=== PATIENT | female | born 1995 | race Hispanic/Latino ===

== ENCOUNTER 2020-11-26 06:26 | Emergency (ER) | payer SELFPAY ==
--- OUTSIDE RECORDS SUMMARY | 2020-11-26 06:29 | XMS REPORT | Continuity of Care Document ---
:1995 Author Organization [facility] t Address [address] [place] [address] Care Team Providers Name Role Phone Rosana Cheney Attending Clinician [phone] Problems This patient has no known problems. Allergies, Adverse Reactions, Alerts This patient has no known allergies or adverse reactions. Medications This patient has no known medications. Procedures This patient has no known procedures. 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
[2020-11-26 06:57] LABS: Absolute Lymphocytes (CBC) 1.8 K/uL (0.7-4.9); Basophils % 0.4 % (0-1.3); Lymphocytes % 12.2 % (15.3-44.8); RBC Red Blood Cell Count 4.01 M/uL (3.86-4.86)
[2020-11-26 07:05] LABS: Urine Blood TRACE (NEG); Urine Glucose NEGATIVE (NEG); Urine Protein 1+ (NEG)
[2020-11-26] MEDS ORDERED: NA CHLORIDE 0.9% 1,000 ML ONE (07:11)
[2020-11-26 07:12] LABS: ALT/SGPT 27 U/L (12-78); AST/SGOT 15 U/L (15-37); Albumin 3.2 g/dL (3.4-5.0); Alkaline Phosphatase 54 U/L (45-117); BUN Blood Urea Nitrogen 8 mg/dL (7-18); Bicarbonate 24 mmol/L (21-32); Bilirubin Direct < 0.1 mg/dL (0-0.2); Bilirubin Total 0.2 mg/dL (0.2-1.0); Glucose Level 72 mg/dL (74-106); Lipase 148 U/L (73-393); Potassium 3.6 mmol/L (3.5-5.1); Protein, Total 7.1 g/dL (6.4-8.2); Sodium Level 140 mmol/L (136-145)
--- NOTE | 2020-11-26 07:53 | RAD REPORT ---
EXAM DESCRIPTION: US - 1St Trimest Single 1St Fetus - 11/26/2020 7:32 am CLINICAL HISTORY: ABD CRAMPING, COMPARISON: No comparisons TECHNIQUE: Transabdominal pelvic sonography performed. FINDINGS: Single intrauterine gestation is identified. Body and limb movements are observed. No tonio s anatomic abnormality observed on limited assessment. Heart rate is 158 BPM. Amniotic fluid volume i s normal. Woodruff-rump length measurement corresponds to 11 weeks 4 days. No placental abnormality seen . Cervical canal appears closed. Both ovaries are identified without solid or cystic mass. No adnexal abnormality. No blood or fluid i n the cul de sac. IMPRESSION: Single 11 week 4 day IUP with heart rate 158 BPM. No amniotic fluid or placenta abnormality. Cervical canal appears closed. No adnexal abnormality.
--- NOTE | 2020-11-26 09:07 | ER ---
Nurse's Notes [facility] Name: Chantelle Wells Age: 25 yrs Sex: Female : 1995 Arrival Date: 11/26/2020 Time: 06:30 Bed 6 Private MD: Diagnosis: related conditions, unspecified; related conditions, unspecified, first trimester;Abdominal and pelvic pain Presentation: 11/26 06:37 Chief complaint: Patient states: i am 2 months and 2 weeks and i started to mg2 have sharp abdominal pain last night while on bed. denies n/v. Coronavirus screen: Client denies travel out of the [place] in the last 14 days. At this time, the client does not indicate any symptoms associated with coronavirus-19. Ebola Screen: No symptoms or risks identified at this time. Initial Sepsis Screen: Does the patient meet any 2 criteria? No. Patient's initial sepsis screen is negative. Does the patient have a suspected source of infection? No. Patient's initial sepsis screen is negative. Risk Assessment: Do you want to hurt yourself or someone else? Patient reports no desire to harm self or others. Onset of symptoms was November 26, 2020. 06:37 Method Of Arrival: Ambulatory mg2 06:37 Acuity: DEMETRIO 3 mg2 Triage Assessment: 06:39 General: Appears in no apparent distress. comfortable, Behavior is calm, cooperative. mg2 Pain: Complains of pain in abdomen Pain currently is 10 out of 10 on a pain scale. Quality of pain is described as sharp. EENT: No signs and/or symptoms were reported regarding the EENT system. Neuro: Level of Consciousness is awake, alert, obeys commands, Oriented to person, place, time, situation. Cardiovascular: Capillary refill < 3 seconds Patient's skin is warm and dry. Respiratory: Airway is patent Respiratory effort is even, unlabored, Respiratory pattern is regular, symmetrical. GI: Reports periumbilical pain. : No signs and/or symptoms were reported regarding the genitourinary system. Derm: Skin is intact, is healthy with good turgor, Skin is pink, warm \T\ dry. normal. Musculoskeletal: Circulation, motion, and sensation intact. Capillary refill < 3 seconds. 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 - Social history:: Smoking status: Patient denies any tobacco usage or history of. Patient/guardian denies using alcohol, street drugs, IV drugs. - Family history:: not pertinent. Screenin:41 Abuse screen: Denies threats or abuse. Denies injuries from another. Nutritional mg2 screening: No deficits noted. Tuberculosis screening: No symptoms or risk factors identified. Fall Risk IV access (20 points). Assessment: 06:41 General: triage note done. mg2 06:42 GI: Bowel sounds present X 4 quads. mg2 07:00 Reassessment: RECD REPORT FROM BRIDGETT SMITH. 25YO HF P/W ABD PAIN DURING . U/S bp PENDING. 07:00 GI: Abd is soft X 4 quads. bp 07:50 Reassessment: U/S COMPLETE. ALL CURRENT ORDERS COMPLETED. bp 08:54 Reassessment: Patient appears in no apparent distress at this time. Patient and/or bw family updated on plan of care and expected duration. Pain level reassessed. Patient is alert, oriented x 3, equal unlabored respirations, skin warm/dry/pink. 09:20 Reassessment: PT D/C HOME AMBULATORY, DX WITH FIRST TRIMESTER . bp Vital Signs: 06:37 BP 119 / 63; Pulse 79; Resp 18; Temp 98.3; Pulse Ox 100% on R/A; Weight 69.4 kg; Height mg2 5 ft. 0 in. (152.40 cm); Pain 10/10; 07:00 BP 99 / 64; Pulse 72; Resp 17; Pulse Ox 100% ; bp 08:54 BP 107 / 52; Pulse 73; Resp 16; Pulse Ox 100% on R/A; bw 06:37 Body Mass Index 29.88 (69.40 kg, 152.40 cm) mg2 ED Course: 06:30 Patient arrived in ED. bp1 06:36 Domingo Ventura, RN is Primary Nurse. mg2 06:39 Triage completed. mg2 06:41 Arm band placed on. mg2 06:42 Patient has correct armband on for positive identification. Pulse ox on. NIBP on. mg2 06:42 No provider procedures requiring assistance completed. Inserted saline lock: 20 gauge mg2 in right antecubital area, using aseptic technique. Blood collected. 06:47 Moustapha Rodriges MD is Attending Physician. mitch 06:55 Radiology exam delayed due to lab results not completed at this time. (HCG) aa4 test not completed at this time. 07:04 Primary Nurse role handed off by Dmoingo Ventura, SARAH bp 07:04 Srinivas Vanessa, SARAH is Primary Nurse. bp 07:30 Ultrasound completed. Patient tolerated well. aa4 08:03 Attending Physician role handed off by Moustapha Rodriges MD kdr 08:03 Jas Rivera MD is Attending Physician. kdr 08:57 Urine --Ancillary (enter results) Sent. bp 08:57 Urine Dipstick--Ancillary (enter results) Sent. bp 08:57 US Transvaginal Ob Sent. bp 08:57 Abo/rh Typing Sent. bp 08:57 Quantitative Hcg Sent. bp 08:58 Lipase Sent. bp 08:58 Hepatic Function Sent. bp 08:58 CBC with Diff Sent. bp 08:58 Basic Metabolic Panel Sent. bp 09:06 Fantasma Lawrence MD is Referral Physician. kdr 09:21 IV discontinued, intact, bleeding controlled, No redness/swelling at site. Pressure bp dressing applied. Administered Medications: 06:52 Drug: NS 0.9% 1000 ml Route: IV; Rate: 1 bolus; Site: right antecubital; mg2 09:24 Follow up: IV Status: Completed infusion; IV Intake: 1000ml bp Intake: 09:24 IV: 1000ml; Total: 1000ml. bp Outcome: 09:07 Discharge ordered by . kdr 09:21 Discharged to home ambulatory, with family. bp 09:21 Condition: stable 09:21 Discharge instructions given to patient, Instructed on discharge instructions, follow up and referral plans. medication usage, Demonstrated understanding of instructions, follow-up care, medications, Prescriptions given X 1. 09:25 Patient left the ED. bp Signatures: Moustapha Rodriges MD MD cha Rittger, Kevin, MD MD kdr Frazier, Amanda aa4 Srinivas Vanessa, SARAH RN bp Domingo Ventura RN RN mg2 Judy Duran [facility] Cam, Tri, RN RN bw
--- NOTE | 2020-11-26 09:08 | EDPHYS ---
Physician Documentation [facility] Name: Chantelle Wells Age: 25 yrs Sex: Female : 1995 Arrival Date: 11/26/2020 Time: 06:30 Bed 6 Private MD: ED Physician Jas Rivera HPI: 11/26 06:52 This 25 yrs old Female presents to ER via Ambulatory with complaints of mitch Abdominal Pain. 06:52 The patient presents with abdominal pain in the periumbilical area. abdominal mitch distention in the upper abdomen, in the lower abdomen. Onset: The symptoms/episode began/occurred just prior to arrival, this morning. The symptoms do not radiate. Associated signs and symptoms: none. The symptoms are described as crampy. Modifying factors: The symptoms are alleviated by remaining still, the symptoms are aggravated by jumping, movement, pressure. Severity of pain: At its worst the pain was moderate in the emergency department the pain has improved mildly. The patient has not experienced similar symptoms in the past. 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 - Social history:: Smoking status: Patient denies any tobacco usage or history of. Patient/guardian denies using alcohol, street drugs, IV drugs. - Family history:: not pertinent. ROS: 06:52 Constitutional: Negative for fever, chills, and weight loss, Eyes: Negative for injury, mitch pain, redness, and discharge, ENT: Negative for injury, pain, and discharge, Neck: Negative for injury, pain, and swelling, Cardiovascular: Negative for chest pain, palpitations, and edema, Respiratory: Negative for shortness of breath, cough, wheezing, and pleuritic chest pain, Back: Negative for injury and pain, : Negative for injury, bleeding, discharge, and swelling, MS/Extremity: Negative for injury and deformity, Skin: Negative for injury, rash, and discoloration, Neuro: Negative for headache, weakness, numbness, tingling, and seizure. 06:52 Abdomen/GI: Positive for abdominal pain, abdominal cramps. Exam: 06:52 Constitutional: This is a well developed, well nourished patient who is awake, alert, mitch and in no acute distress. Head/Face: Normocephalic, atraumatic. Eyes: Pupils equal round and reactive to light, extra-ocular motions intact. Lids and lashes normal. Conjunctiva and sclera are non-icteric and not injected. Cornea within normal limits. Periorbital areas with no swelling, redness, or edema. ENT: Nares patent. No nasal discharge, no septal abnormalities noted. Tympanic membranes are normal and external auditory canals are clear. Oropharynx with no redness, swelling, or masses, exudates, or evidence of obstruction, uvula midline. Mucous membranes moist. Neck: Trachea midline, no thyromegaly or masses palpated, and no cervical lymphadenopathy. Supple, full range of motion without nuchal rigidity, or vertebral point tenderness. No Meningismus. Chest/axilla: Normal chest wall appearance and motion. Nontender with no deformity. No lesions are appreciated. Cardiovascular: Regular rate and rhythm with a normal S1 and S2. No gallops, murmurs, or rubs. Normal PMI, no JVD. No pulse deficits. Respiratory: Lungs have equal breath sounds bilaterally, clear to auscultation and percussion. No rales, rhonchi or wheezes noted. No increased work of breathing, no retractions or nasal flaring. Back: No spinal tenderness. No costovertebral tenderness. Full range of motion. Female : Normal external genitalia. Skin: Warm, dry with normal turgor. Normal color with no rashes, no lesions, and no evidence of cellulitis. MS/ Extremity: Pulses equal, no cyanosis. Neurovascular intact. Full, normal range of motion. Neuro: Awake and alert, GCS 15, oriented to person, place, time, and situation. Cranial nerves II-XII grossly intact. Motor strength 5/5 in all extremities. Sensory grossly intact. Cerebellar exam normal. Normal gait. Psych: Awake, alert, with orientation to person, place and time. Behavior, mood, and affect are within normal limits. 06:52 Abdomen/GI: Inspection: abdomen appears normal, Bowel sounds: normal, Palpation: mild abdominal tenderness, in the umbilical area, right lower quadrant and left lower quadrant, Liver: no appreciated palpable abnormalities, Hernia: not appreciated. Vital Signs: 06:37 BP 119 / 63; Pulse 79; Resp 18; Temp 98.3; Pulse Ox 100% on R/A; Weight 69.4 kg; Height mg2 5 ft. 0 in. (152.40 cm); Pain 10/10; 07:00 BP 99 / 64; Pulse 72; Resp 17; Pulse Ox 100% ; bp 08:54 BP 107 / 52; Pulse 73; Resp 16; Pulse Ox 100% on R/A; bw 06:37 Body Mass Index 29.88 (69.40 kg, 152.40 cm) mg2 MDM: 06:47 Patient medically screened. mitch 06:54 Differential diagnosis: Cholelithiasis, gastritis, Irritable bowel syndrome, mitch pancreatitis, Peptic Ulcer Disease, urinary tract infection. Data reviewed: vital signs, nurses notes, lab test result(s), radiologic studies, ultrasound. 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 Counseling: I had a detailed discussion with the patient and/or guardian regarding: the historical points, exam findings, and any diagnostic results supporting the discharge/admit diagnosis, lab results, radiology results, the need for outpatient follow up, for definitive care, an OB/Gyne specialist. 11/26 06:36 Order name: Basic Metabolic Panel mg2 11/26 06:36 Order name: CBC with Diff mg2 11/26 06:36 Order name: Hepatic Function mg2 11/26 06:36 Order name: Lipase mg2 11/26 06:52 Order name: Quantitative Hcg mitch 11/26 06:52 Order name: Abo/rh Typing [facility] 11/26 06:52 Order name: Urine Dipstick--Ancillary (enter results) eb 11/26 06:52 Order name: Urine --Ancillary (enter results) eb 11/26 06:58 Order name: CBC with Automated Diff; Complete Time: 07:24 EDMS 11/26 07:06 Order name: Urine --Ancillary; Complete Time: 07:24 EDMS 11/26 07:06 Order name: Urine Dipstick-Ancillary; Complete Time: 07:24 EDMS 11/26 07:12 Order name: Basic Metabolic Panel; Complete Time: 07:24 EDMS 11/26 07:12 Order name: Liver (Hepatic) Function; Complete Time: 07:24 EDMS 11/26 07:12 Order name: Lipase; Complete Time: 07:24 EDMS 11/26 06:36 Order name: IV Saline Lock; Complete Time: 06:42 mg2 11/26 06:36 Order name: Labs collected and sent; Complete Time: 06:43 mg2 11/26 06:36 Order name: Urine Dipstick-Ancillary (obtain specimen); Complete Time: 06:42 mg2 11/26 06:36 Order name: Urine Test (obtain specimen); Complete Time: 06:42 mg2 11/26 06:52 Order name: NPO; Complete Time: 06:53 mitch 11/26 06:52 Order name: US Transvaginal Ob mitch 11/26 07:53 Order name: US; Complete Time: 08:04 EDMS 11/26 07:54 Order name: ABO/RH typing; Complete Time: 08:04 EDMS 11/26 07:55 Order name: HCG, Quantitative; Complete Time: 08:04 EDMS Administered Medications: 06:52 Drug: NS 0.9% 1000 ml Route: IV; Rate: 1 bolus; Site: right antecubital; mg2 09:24 Follow up: IV Status: Completed infusion; IV Intake: 1000ml bp Disposition: 11/26/20 09:07 Discharged to Home. Impression: related conditions, unspecified, related conditions, unspecified, first trimester, Abdominal and pelvic pain. - Condition is Stable. - Discharge Instructions: First Trimester of , [id number], First Trimester of , Pelvic Rest. - Prescriptions for Vitamin 27- 0.8 mg Oral Tablet - take 1 tablet by ORAL route once daily; 30 tablet. - Medication Reconciliation Form, Thank You Letter, Antibiotic Education, Prescription Opioid Use, Work release form form. - Follow up: Private Physician; When: 2 - 3 days; Reason: Recheck today's complaints, Continuance of care, Re-evaluation by your physician. Follow up: Fantasma Lawrence; When: 2 - 3 days; Reason: Recheck today's complaints, Re-evaluation by your physician. - Problem is new. - Symptoms have improved. Signatures: Dispatcher [employer] [facility] Moustapha Rodriges MD MD cha Rittger, Kevin, MD MD kdr Peltier, Brian, RN RN bp Domingo Ventura RN RN mg2 Corrections: (The following items were deleted from the chart) 09:25 09:07 11/26/2020 09:07 Discharged to Home. Impression: related conditions, bp unspecified; related conditions, unspecified, first trimester; Abdominal and pelvic pain. Condition is Stable. Discharge Instructions: First Trimester of , [id number], First Trimester of , Pelvic Rest. Prescriptions for Vitamin 27-0.8 mg Oral Tablet - take 1 tablet by ORAL route once daily; 30 tablet. and Forms are Medication Reconciliation Form, Thank You Letter, Antibiotic Education, Prescription Opioid Use. Follow up: Private Physician; When: 2 - 3 days; Reason: Recheck today's complaints, Continuance of care, Re-evaluation by your physician. Follow up: Fantasma Lawrence; When: 2 - 3 days; Reason: Recheck today's complaints, Re-evaluation by your physician. Problem is new. Symptoms have improved. kdr
[2020-11-26 19:12] VITALS: TEMP 98.3; O2SAT 100
[2020-11-26 19:15] VITALS: BP 107/52
== END 2020-11-26 09:25 | disposition home or self-care (01) ==
LOC: ER 06:26
DX: O26.891 Other specified pregnancy related conditions, first trimester (principal); Z3A.11 11 weeks gestation of pregnancy
CPT/HCPCS: 36415; 76801; 80048; 80076; 81003; 81025; 83690; 84702; 85025; 86900; 86901; 96360; 96361; 99284; J7030

== ENCOUNTER 2020-12-23 22:03 | Emergency (ER) | payer SELFPAY ==
--- OUTSIDE RECORDS SUMMARY | 2020-12-23 22:05 | XMS REPORT | Continuity of Care Document ---
:1995 Author Organization [facility] t Address [address] [place] [address] Care Team Providers Name Role Phone Rosana Cheney Attending Clinician [phone] Problems This patient has no known problems. Allergies, Adverse Reactions, Alerts This patient has no known allergies or adverse reactions. Medications This patient has no known medications. Procedures This patient has no known procedures. Encounters Start End Encounter Admission Attending Care Care Encounter Source Date/Time Date/Time Type Type Clinicians Facility Department ID 2020-12-13 2020-12-13 Routine [facility] [id number] 08:40:34 09:52:59 Rosana Berger IT TECHNICAL SUPPORT SPECIALIST [id number] Visit REGIONAL [id number] MATERNAL [id number] & CHILD 107 [facility] 2020-11-22 2020-11-22 Telephone [facility] [id number] 00:00:00 00:00:00 Rosana Berger IT TECHNICAL SUPPORT SPECIALIST [id number] REGIONAL [id number] MATERNAL [id number] & CHILD 107 [facility] Results This patient has no known results.
--- NOTE | 2020-12-24 00:14 | ER ---
Nurse's Notes [facility] Name: Chantelle Wells Age: 25 yrs Sex: Female : 1995 Arrival Date: 12/23/2020 Time: 22:04 Bed Waiting Private MD: Diagnosis: Presentation: 12/23 22:15 Chief complaint: Patient states: she had sudden onset of abdominal and back pain which bb is constant with no radiation denies vomiting or diarrhea. Coronavirus screen: At this time, the client does not indicate any symptoms associated with coronavirus-19. Ebola Screen: No symptoms or risks identified at this time. Initial Sepsis Screen: Does the patient meet any 2 criteria? No. Patient's initial sepsis screen is negative. Does the patient have a suspected source of infection? No. Patient's initial sepsis screen is negative. Risk Assessment: Do you want to hurt yourself or someone else? Patient reports no desire to harm self or others. Onset of symptoms was December 23, 2020. 22:15 Method Of Arrival: Ambulatory bb 22:15 Acuity: DEMETRIO 3 bb 12/24 00:12 Note registration staff reported pt left the ED. bb Triage Assessment: 12/23 22:18 General: Appears in no apparent distress. Behavior is calm, cooperative. Pain: bb Complains of pain in back and abdomen Pain does not radiate. Pain currently is 10 out of 10 on a pain scale. Pain began suddenly. GI: Abdomen is non-distended, Reports upper abdominal pain. Derm: Skin is pink, warm \T\ dry. Musculoskeletal: Circulation, motion, and sensation intact. 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 - Social history:: Smoking status: Patient denies any tobacco usage or history of. Vital Signs: 22:15 BP 116 / 59; Pulse 82; Resp 16 S; Temp 98.4(O); Pulse Ox 100% on R/A; Weight 68.04 kg bb (R); Height 5 ft. 0 in. (152.40 cm) (R); Pain 10/10; 22:15 Body Mass Index 29.29 (68.04 kg, 152.40 cm) bb ED Course: 22:04 Patient arrived in ED. cl3 22:17 Triage completed. bb 22:18 Arm band placed on Patient placed in waiting room, Patient notified of wait time. bb 12/24 00:12 Patient's name was called from ER lobby. No response. Unable to locate patient. Will bb disposition as left without being seen by a provider. Administered Medications: No medications were administered Outcome: 00:13 Patient left the ED. bb Signatures: Maribel Jaramillo RN RN bb [employer] cl3
[2020-12-24 19:21] VITALS: BP 116/59; TEMP 98.4; O2SAT 100
== END 2020-12-24 00:13 | disposition left against medical advice (07) ==
LOC: ER 22:03
DX: Z53.21 Procedure and treatment not carried out due to patient leaving prior to being seen by health care provider (principal)
CPT/HCPCS: 99281

== ENCOUNTER 2022-01-12 21:02 | Emergency (ER) | payer SELFPAY ==
--- OUTSIDE RECORDS SUMMARY | 2022-01-12 21:09 | XMS REPORT | Continuity of Care Document ---
:1995 Author Organization [facility] t Address [address] [place] [address] Care Team Providers Name Role Phone Rosana Cheney Primary Care Physician ARTEAGA Attending Clinician Unavailable Arteaga DO Attending Clinician Doctor Unassigned, Name Attending Clinician Unavailable Celine Cheney Attending Clinician Celine PAK Attending Clinician Unavailable Gibran Romo Attending Clinician Unavailable Viki Broderick MD Attending Clinician Mike BLEACHING SUPERVISOR, N Attending Clinician Ultrasound Attending Clinician Unavailable Lui ESQUIVEL M Attending Clinician 1, Us Room Attending Clinician Unavailable Torsten ESQUIVEL R Attending Clinician Visit, Nurse Attending Clinician Unavailable Lab Attending Clinician Unavailable VIKI BRODERICK Admitting Clinician Unavailable Gibran Romo Admitting Clinician Unavailable Viki Broderick MD Admitting Clinician Payers Payer Name Policy Type Policy Number Effective Date Expiration Date Marcelo [facility] [id number] 2020 00:00:00 [employer] Advance Directives Directive Decision Effective Termination Comments Source Date Date Healthcare Agents on N/A Univ ersity FileNameRelationshipHealthcare [facility] Agent Medical RelationshipCommunicationMaria Branch HerFlagstaff Medical CentertherHealth Care [phone] (Mobile) Problems Condition Condition Condition Status Onset Resolution Last Treating Co mments Source Name Details Category Date Date Treatment Clinician Date Other Other Disease Active Univers general general 7- [place] of counseling [place] and advice and advice 00 Me dical for for Branch contracept contracept akhil akhil management management Disease Active U nivers care and care and 7 ity of examinatio examinatio [place] n of n of 00 Medical lactating lactating Bran ch mother mother Vaginal Vaginal Disease Active Univers bleeding bleeding 6-11 ity of in in 00:00: [place] 00 [facility] Branch Obesity Obesity Disease Active Univers (BMI (BMI 6-11 ity of 30-39.9) 30-39.9) 00:00: [place] 00 [facility] 25 weeks 25 weeks Disease Active Unive rs gestation gestation 6-11 ity of of of 00:00: [place] 00 [facility] Branch Disease Active Univers labor in labor in 6-11 ity of second second 00:00: [place] trimester trimester 00 [facility] without without Branch delivery delivery Pain of Pain of Disease Active Univers round round 6-02 ity of ligament ligament 00:00: [place] during during 00 Medical Bran ch Headache Headache Disease Active [place]ive rs [place] 2- [place] Chlamydia Chlamydia Disease Active Overview: Univers infection infection - Formattin i ty of affecting affecting 00:00: [place] of this [place] 00 note [facility] might be Branch different from the original. WENDIE-neg Gonorrhea Gonorrhea Disease Active Overview: Univers in in - Formattin ity of 00:00: [place] of this [place] 00 note Medical might be Branch different from the original. WENDIE -neg Susceptibl Susceptibl Disease Active Overview : Univers e to e to 10-13 Formattin ity of varicella varicella 00:00: [place] of [place] (non-immun (non-immun 00 note Me dical e), e), might be Branch currently currently different from the original. Address pp Rubella Rubella Disease Active Overview: Univ ers non-immune non-immune 20 Formattin ity of status, status, 00:00: g of this [place] antepartum antepartum 00 note Me dical might be Branch different from the original. Address pp Supervisio Supervisio Disease Active U emeli n of high n of high -19 ity of risk risk 00:00: [place] , , 00 Me dical antepartum antepartum Br anch Over Over Disease Active Univers weight weight 10-12 ity of 00:00: [place] 00 Medical Branch Nexplanon Nexplanon Disease Active Overview: Univers removal removal 05-14 Formattin ity o f 00:00: g of this [place] 00 note Medical might be Branch different from the original. Placed 04/2017, removed 10/2017 Non morbid Non morbid Disease Active U emeli obesity obesity 04-24 ity of due to due to 00:00: [place] excess excess 00 Medical calories calories Branch Other Other Disease Active Univers general general 8 ity of counseling counseling 00:00[place] and advice and advice 00 Me dical for for Branch contracept contracept akhil akhil management management Lump of Lump of Disease Active Univers right right 5-03 ity of breast breast 00:00: [place] 00 Medical Branch Contracept Contracept Disease Active U emeli akhil akhil 1-11 ity of management management 00:00: [place] 00 [place] Allergies, Adverse Reactions, Alerts Allergy Allergy Status Severity Reaction(s) Onset Inactive Treating Comm ents Source Name Type Date Date Clinician No Known DA Active U [facility] 6[facility]12 [facility] [place] No Known DA Active U [facility] 6[facility]12 [facility] [place] NO KNOWN Drug Active Univers ALLERGIE Class ity of S [facility] Social History Social Habit Start Date Stop Date Quantity Comments Source ASSERTION 2020-09-20 [facility] 00:00:00 Medical Branch Exposure to 2022-01-02 2022-01-12 Not sure [facility] SARS-CoV-2 (event) 00:00:00 [facility] Alcohol intake 2022-01-12 2022-01-12 0 /d [facility] 00:00:00 00:00:00 [facility] Tobacco use and 2021-04-18 2021-04-18 Never used [facility] exposure 00:00:00 00:00:00 [facility] Sex Ass[birth year] At [birth year] [facility] 00:00:00 00:00:00 [facility] Smoking Status Start Date Stop Date Source Never smoker [facility] [place] [facility] Medications Ordered Filled Start Stop Current Ordering Indication Dosage Frequency Signature Comments Components Source Medication Medication Date Date Medication? Clinician (SIG) Name Name santosho No 10mg 10 mg, Uni vers ne 01-12 Oral, ity of (DECADRON 16:30: 15:25 ONCE, 1 [place] PHOSPHATE) 00 :00 dose, On Medic al injection Macie Covel 10 mg 01/12/22 at 1130, Routine indomethaci 2020- No 50mg 50 mg, Uni vers n (INDOCIN) 03-05-12 Oral, ity of capsule 50 03:30: 02:27 ONCE, 1 [place] mg 00 :00 dose, Fri Medical 03/04/21 at Branch 2230, Routine D5W 0.45% Yes 1000mL at 100 Univ ers NaCl 6-12 mL/hr, ity of (1/2NS) IV 01:45: 1,000 mL, [place] infusion 00 IV Medical 1,000 mL Infusion, Branch CONTINUOUS , Starting 03/04/21 at 2045, Until Discontinu ed, Routine penicillin 2020- No 510 5 Million U nivers g potassium 03-05-12 Units, IV it y of 5 Million 01:45: 02:00 Piggyback, [place] Units in 00 :00 ONCE, 1 Medical NaCl 0.9% dose, Fri Branc h (NS) 100 mL 03/04/21 at MINI-BAG 2044, 100 mL
Reas on for Anti-Infec tive: Empiric Non-Surgic al Prophylaxi s
Durat ion of therapy: 72 hours terbutaline 2020- No .25mg 0.25 mg, Univers (BRETHINE) 03-05 Subcutaneo it y of injection 01:30: 00:41 [place], ONCE, [place] 0.25 mg 00 :00 1 dose, Medical Fri Branch 03/04/21 at 2030, Routine magnesium 2020- No 2g/h 2 g/hr (50 U nivers sulfate in 03-05 mL/hr), at it y of 0.9 %NaCl 01:30: 13:29 50 mL/hr, [place] 10 gram/250 00 :00 IV Medical mL (40 Infusion, Branch mg/mL) IV CONTINUOUS SOLUTION , Starting 03/04/21 at 2030, Until 03/05/21 at 0829, V[place] betamethaso 2020- No 12mg 12 mg, Uni vers ne acet,sod 03-05 Intramuscu i ty of phos 01:30: 00:43 lar, ONCE, [place] (CELESTONE 00 :00 1 dose, Medica l SOLUSPAN) 6 Fri Branch mg/mL 03/04/21 at injection 2030, 12 mg Routine ferrous Yes [id number] 325mg Take 1 Un marin sulfate 325 6-03 tablet by ity of mg (65 mg 00:00: mouth 2 [place] iron) 00 (two) Medical tablet times Branch daily. ascorbic Yes [id number] 500mg Take 1 U nivers acid, 6-03 tablet by ity of vitamin C, 00:00: mouth [place] 500 mg 00 (three) Medical tablet times Branch daily. ferrous Yes [id number] 325mg Take 1 Un marin sulfate 325 6-03 tablet by ity of mg (65 mg 00:00: mouth 2 [place] iron) 00 (two) Medical tablet times Branch daily. ascorbic Yes [id number] 500mg Take 1 U nivers acid, 6-03 tablet by ity of vitamin C, 00:00: mouth [place] 500 mg 00 (three) Medical tablet times Branch daily. ferrous Yes [id number] 325mg Take 1 Un marin sulfate 325 6-03 tablet by ity of mg (65 mg 00:00: mouth 2 [place] iron) 00 (two) Medical tablet times Branch daily. ascorbic Yes [id number] 500mg Take 1 U nivers acid, 6-03 tablet by ity of vitamin C, 00:00: mouth [place] 500 mg 00 (three) Medical tablet times Branch daily. ferrous Yes [id number] 325mg Take 1 Un marin sulfate 325 6-03 tablet by ity of mg (65 mg 00:00: mouth 2 [place] iron) 00 (two) Medical tablet times Branch daily. ascorbic Yes [id number] 500mg Take 1 U nivers acid, 6-03 tablet by ity of vitamin C, 00:00: mouth [place] 500 mg 00 (three) Medical tablet times Branch daily. ferrous Yes [id number] 325mg Take 1 Un marin sulfate 325 6-03 tablet by ity of mg (65 mg 00:00: mouth 2 [place] iron) 00 (two) Medical tablet times Branch daily. ascorbic Yes [id number] 500mg Take 1 U nivers acid, 6-03 tablet by ity of vitamin C, 00:00: mouth [place] 500 mg 00 (three) Medical tablet times Branch daily. ferrous Yes [id number] 325mg Take 1 Un marin sulfate 325 6-03 tablet by ity of mg (65 mg 00:00: mouth 2 [place] iron) 00 (two) Medical tablet times Branch daily. ascorbic Yes [id number] 500mg Take 1 U nivers acid, 6-03 tablet by ity of vitamin C, 00:00: mouth 3 [place] 500 mg 00 (three) Medical tablet times Branch daily. ferrous Yes [id number] 325mg Take 1 Un marin sulfate 325 6-03 tablet by ity of mg (65 mg 00:00: mouth 2 [place] iron) 00 (two) Medical tablet times Branch daily. ascorbic Yes [id number] 500mg Take 1 U nivers acid, 6-03 tablet by ity of vitamin C, 00:00: mouth [place] 500 mg 00 (three) Medical tablet times Branch daily. ferrous Yes [id number] 325mg Take 1 Un marin sulfate 325 6-03 tablet by ity of mg (65 mg 00:00: mouth 2 [place] iron) 00 (two) Medical tablet times Branch daily. ascorbic Yes [id number] 500mg Take 1 U nivers acid, 6-03 tablet by ity of vitamin C, 00:00: mouth 3 [place] 500 mg 00 (three) Medical tablet times Branch daily. ferrous Yes [id number] 325mg Take 1 Un marin sulfate 325 6-03 tablet by ity of mg (65 mg 00:00: mouth 2 [place] iron) 00 (two) Medical tablet times Branch daily. ascorbic Yes [id number] 500mg Take 1 U nivers acid, 6-03 tablet by ity of vitamin C, 00:00: mouth 3 [place] 500 mg 00 (three) Medical tablet times Branch daily. ferrous Yes [id number] 325mg Take 1 Un marin sulfate 325 6-03 tablet by ity of mg (65 mg 00:00: mouth 2 [place] iron) 00 (two) Medical tablet times Branch daily. ascorbic Yes [id number] 500mg Take 1 U nivers acid, 6-03 tablet by ity of vitamin C, 00:00: mouth 3 [place] 500 mg 00 (three) Medical tablet times Branch daily. ferrous Yes [id number] 325mg Take 1 Un marin sulfate 325 6-03 tablet by ity of mg (65 mg 00:00: mouth 2 [place] iron) 00 (two) Medical tablet times Branch daily. ascorbic Yes [id number] 500mg Take 1 U nivers acid, 6-03 tablet by ity of vitamin C, 00:00: mouth 3 [place] 500 mg 00 (three) Medical tablet times Branch daily. ferrous Yes [id number] 325mg Take 1 Un marin sulfate 325 6-03 tablet by ity of mg (65 mg 00:00: mouth 2 [place] iron) 00 (two) Medical tablet times Branch daily. ascorbic Yes [id number] 500mg Take 1 U nivers acid, 6-03 tablet by ity of vitamin C, 00:00: mouth 3 [place] 500 mg 00 (three) Medical tablet times Branch daily. ferrous Yes [id number] 325mg Take 1 Un marin sulfate 325 6-03 tablet by ity of mg (65 mg 00:00: mouth 2 [place] iron) 00 (two) Medical tablet times Branch daily. ascorbic 2020-0 Yes [id number] 500mg Take 1 U nivers acid, 6-03 tablet by ity of vitamin C, 00:00: mouth 3 [place] 500 mg 00 (three) Medical tablet times Branch daily. ferrous 2020-0 Yes [id number] 325mg Take 1 Un marin sulfate 325 6-03 tablet by ity of mg (65 mg 00:00: mouth 2 [place] iron) 00 (two) Medical tablet times Branch daily. ascorbic 2020-0 Yes [id number] 500mg Take 1 U nivers acid, 6-03 tablet by ity of vitamin C, 00:00: mouth 3 [place] 500 mg 00 (three) Medical tablet times Branch daily. ferrous 2020- Yes [id number] 325mg Take 1 Un marin sulfate 325 6-03 tablet by ity of mg (65 mg 00:00: mouth 2 [place] iron) 00 (two) Medical tablet times Branch daily. ascorbic Yes [id number] 500mg Take 1 U nivers acid, 6-03 tablet by ity of vitamin C, 00:00: mouth 3 [place] 500 mg 00 (three) Medical tablet times Branch daily. PNV 2020-0 Yes [id number] 1{tbl} Take 1 Unive rs no.153-FA-o 6-02 tablet by ity of m3-dha-epa- 00:00: mouth [place] fish 00 daily. Medical ( Branch GUMMIES) 400 mcg-35 mg- 25 mg-5 mg Chew PNV 2020-0 Yes [id number] 1{tbl} Take 1 Unive rs no.153-FA-o 6-02 tablet by ity of m3-dha-epa- 00:00: mouth [place] fish 00 daily. Medical ( Branch GUMMIES) 400 mcg-35 mg- 25 mg-5 mg Chew PNV 2020-0 Yes [id number] 1{tbl} Take 1 Unive rs no.153-FA-o 6-02 tablet by ity of m3-dha-epa- 00:00: mouth [place] fish 00 daily. Medical ( Branch GUMMIES) 400 mcg-35 mg- 25 mg-5 mg Chew PNV 2020-0 Yes [id number] 1{tbl} Take 1 Unive rs no.153-FA-o 6-02 tablet by ity of m3-dha-epa- 00:00: mouth [place] fish 00 daily. Medical ( Branch GUMMIES) 400 mcg-35 mg- 25 mg-5 mg Chew PNV 2021-0 Yes [id number] 1{tbl} Take 1 Unive rs no.153-FA-o 6-02 tablet by ity of m3-dha-epa- 00:00: mouth [place] fish 00 daily. Medical ( Branch GUMMIES) 400 mcg-35 mg- 25 mg-5 mg Chew PNV 2021-0 Yes [id number] 1{tbl} Take 1 Unive rs no.153-FA-o 6-02 tablet by ity of m3-dha-epa- 00:00: mouth [place] fish 00 daily. Medical ( Branch GUMMIES) 400 mcg-35 mg- 25 mg-5 mg Chew PNV 2021-0 Yes [id number] 1{tbl} Take 1 Unive rs no.153-FA-o 6-02 tablet by ity of m3-dha-epa- 00:00: mouth [place] fish 00 daily. Medical ( Branch GUMMIES) 400 mcg-35 mg- 25 mg-5 mg Chew PNV 2021-0 Yes [id number] 1{tbl} Take 1 Unive rs no.153-FA-o 6-02 tablet by ity of m3-dha-epa- 00:00: mouth [place] fish 00 daily. Medical ( Branch GUMMIES) 400 mcg-35 mg- 25 mg-5 mg Chew PNV 2021-0 Yes [id number] 1{tbl} Take 1 Unive rs no.153-FA-o 6-02 tablet by ity of m3-dha-epa- 00:00: mouth [place] fish 00 daily. Medical ( Branch GUMMIES) 400 mcg-35 mg- 25 mg-5 mg Chew PNV 2021-0 Yes [id number] 1{tbl} Take 1 Unive rs no.153-FA-o 6-02 tablet by ity of m3-dha-epa- 00:00: mouth [place] fish 00 daily. Medical ( Branch GUMMIES) 400 mcg-35 mg- 25 mg-5 mg Chew PNV 2021-0 Yes [id number] 1{tbl} Take 1 Unive rs no.153-FA-o 6-02 tablet by ity of m3-dha-epa- 00:00: mouth [place] fish 00 daily. Medical ( Branch GUMMIES) 400 mcg-35 mg- 25 mg-5 mg Chew PNV 2021-0 Yes [id number] 1{tbl} Take 1 Unive rs no.153-FA-o 6-02 tablet by ity of m3-dha-epa- 00:00: mouth [place] fish 00 daily. Medical ( Branch GUMMIES) 400 mcg-35 mg- 25 mg-5 mg Chew PNV 2021-0 Yes [id number] 1{tbl} Take 1 Unive rs no.153-FA-o 6-02 tablet by ity of m3-dha-epa- 00:00: mouth [place] fish 00 daily. Medical ( Branch GUMMIES) 400 mcg-35 mg- 25 mg-5 mg Chew PNV 2021-0 Yes [id number] 1{tbl} Take 1 Unive rs no.153-FA-o 6-02 tablet by ity of m3-dha-epa- 00:00: mouth [place] fish 00 daily. Medical ( Branch GUMMIES) 400 mcg-35 mg- 25 mg-5 mg Chew PNV 2021-0 Yes [id number] 1{tbl} Take 1 Unive rs no.153-FA-o 6-02 tablet by ity of m3-dha-epa- 00:00: mouth [place] fish 00 daily. Medical ( Branch GUMMIES) 400 mcg-35 mg- 25 mg-5 mg Chew PNV 2021-0 Yes [id number] 1{tbl} Take 1 Unive rs no.153-FA-o 6-02 tablet by ity of m3-dha-epa- 00:00: mouth [place] fish 00 daily. Medical ( Branch GUMMIES) 400 mcg-35 mg- 25 mg-5 mg Chew PNV 2021-0 Yes [id number] 1{tbl} Take 1 Unive rs no.153-FA-o 6-02 tablet by ity of m3-dha-epa- 00:00: mouth [place] fish 00 daily. Medical ( Branch GUMMIES) 400 mcg-35 mg- 25 mg-5 mg Chew 2020-0 Yes [id number] 1{tbl} Take 1 U nivers multivitami 3-22 tablet by ity of n ( 00:00: mouth [place] VITAMIN) 00 daily. Medical tablet Branch Yes [id number] 1{tbl} Take 1 U nivers multivitami 3-22 tablet by ity of n ( 00:00: mouth [place] VITAMIN) 00 daily. Medical tablet Branch Yes [id number] 1{tbl} Take 1 U nivers multivitami 3-22 tablet by ity of n ( 00:00: mouth [place] VITAMIN) 00 daily. Medical tablet Branch Yes [id number] 1{tbl} Take 1 U nivers multivitami 3-22 tablet by ity of n ( 00:00: mouth [place] VITAMIN) 00 daily. Medical tablet Branch Yes [id number] 1{tbl} Take 1 U nivers multivitami 3-22 tablet by ity of n ( 00:00: mouth [place] VITAMIN) 00 daily. Medical tablet Branch Yes [id number] 1{tbl} Take 1 U nivers multivitami 3-22 tablet by ity of n ( 00:00: mouth [place] VITAMIN) 00 daily. Medical tablet Branch Yes [id number] 1{tbl} Take 1 U nivers multivitami 3-22 tablet by ity of n ( 00:00: mouth [place] VITAMIN) 00 daily. Medical tablet Branch Yes [id number] 1{tbl} Take 1 U nivers multivitami 3-22 tablet by ity of n ( 00:00: mouth [place] VITAMIN) 00 daily. Medical tablet Branch Yes [id number] 1{tbl} Take 1 U nivers multivitami 3-22 tablet by ity of n ( 00:00: mouth [place] VITAMIN) 00 daily. Medical tablet Branch Yes [id number] 1{tbl} Take 1 U nivers multivitami 3-22 tablet by ity of n ( 00:00: mouth [place] VITAMIN) 00 daily. Medical tablet Branch Yes [id number] 1{tbl} Take 1 U nivers multivitami 3-22 tablet by ity of n ( 00:00: mouth [place] VITAMIN) 00 daily. Medical tablet Branch Yes [id number] 1{tbl} Take 1 U nivers multivitami 3-22 tablet by ity of n ( 00:00: mouth [place] VITAMIN) 00 daily. Medical tablet Branch Yes [id number] 1{tbl} Take 1 U nivers multivitami 3-22 tablet by ity of n ( 00:00: mouth [place] VITAMIN) 00 daily. Medical tablet Branch Yes [id number] 1{tbl} Take 1 U nivers multivitami 3-22 tablet by ity of n ( 00:00: mouth [place] VITAMIN) 00 daily. Medical tablet Branch Yes [id number] 1{tbl} Take 1 U nivers multivitami 3-22 tablet by ity of n ( 00:00: mouth [place] VITAMIN) 00 daily. Medical tablet Branch Yes [id number] 1{tbl} Take 1 U nivers multivitami 3-22 tablet by ity of n ( 00:00: mouth [place] VITAMIN) 00 daily. Medical tablet Branch Yes [id number] 1{tbl} Take 1 U nivers multivitami 3-22 tablet by ity of n ( 00:00: mouth [place] VITAMIN) 00 daily. Medical tablet Branch Yes [id number] 1{tbl} Take 1 U nivers multivitami 3-22 tablet by ity of n ( 00:00: mouth [place] VITAMIN) 00 daily. Medical tablet Branch Yes [id number] 1{tbl} Take 1 U nivers multivitami 3-22 tablet by ity of n ( 00:00: mouth [place] VITAMIN) 00 daily. Medical tablet Branch Yes [id number] 1{tbl} Take 1 U nivers multivitami 3-22 tablet by ity of n ( 00:00: mouth [place] VITAMIN) 00 daily. Medical tablet Branch Yes [id number] 1{tbl} Take 1 U nivers multivitami 3-22 tablet by ity of n ( 00:00: mouth [place] VITAMIN) 00 daily. Medical tablet Branch Yes [id number] 1{tbl} Take 1 U nivers multivitami 3-22 tablet by ity of n ( 00:00: mouth [place] VITAMIN) 00 daily. Medical tablet Branch Yes [id number] 1{tbl} Take 1 U nivers multivitami 3-22 tablet by ity of n ( 00:00: mouth [place] VITAMIN) 00 daily. Medical tablet Branch Yes [id number] 1{tbl} Take 1 U nivers multivitami 3-22 tablet by ity of n ( 00:00: mouth [place] VITAMIN) 00 daily. Medical tablet Branch Yes [id number] 1{tbl} Take 1 U nivers multivitami 3-22 tablet by ity of n ( 00:00: mouth [place] VITAMIN) 00 daily. Medical tablet Branch Yes [id number] 1{tbl} Take 1 U nivers multivitami 3-22 tablet by ity of n ( 00:00: mouth [place] VITAMIN) 00 daily. Medical tablet Branch Yes [id number] 1{tbl} Take 1 U nivers multivitami 3-22 tablet by ity of n ( 00:00: mouth [place] VITAMIN) 00 daily. Medical tablet Branch terconazole 2020- No [id number] 80mg Insert 1 Univers 80 mg 3- 03-05 Suppositor ity of vaginal 00:00: 05:59 y into [place] suppository 00 :00 vagina at [facility] for 3 days. terconazole 2020- No [id number] 80mg Insert 1 Univers 80 mg 3- 03-05 Suppositor ity of vaginal 00:00: 05:59 y into [place] suppository 00 :00 vagina at [facility] for 3 days. PNV 67-iron Yes [id number] 1{each} Take 1 Univers ps-folate 2-22 Each by ity of no.1-dha 00:00: mouth [place] (VITAFOL 00 daily. Medical ULTRA) 29 Branch mg iron- 1 mg-200 mg Cap PNV 67-iron Yes [id number] 1{each} Take 1 Univers ps-folate 2-22 Each by ity of no.1-dha 00:00: mouth [place] (VITAFOL 00 daily. Medical ULTRA) 29 Branch mg iron- 1 mg-200 mg Cap PNV 67-iron Yes [id number] 1{each} Take 1 Univers ps-folate 2-22 Each by ity of no.1-dha 00:00: mouth [place] (VITAFOL 00 daily. Medical ULTRA) 29 Branch mg iron- 1 mg-200 mg Cap PNV 67-iron 2020-0 Yes [id number] 1{each} Take 1 Univers ps-folate 2-22 Each by ity of no.1-dha 00:00: mouth [place] (VITAFOL 00 daily. Medical ULTRA) 29 Branch mg iron- 1 mg-200 mg Cap PNV 67-iron 2020-0 Yes [id number] 1{each} Take 1 Univers ps-folate 2-22 Each by ity of no.1-dha 00:00: mouth [place] (VITAFOL 00 daily. Medical ULTRA) 29 Branch mg iron- 1 mg-200 mg Cap PNV 67-iron 2020-0 Yes [id number] 1{each} Take 1 Univers ps-folate 2-22 Each by ity of no.1-dha 00:00: mouth [place] (VITAFOL 00 daily. Medical ULTRA) 29 Branch mg iron- 1 mg-200 mg Cap PNV 67-iron 2020-0 Yes [id number] 1{each} Take 1 Univers ps-folate 2-22 Each by ity of no.1-dha 00:00: mouth [place] (VITAFOL 00 daily. Medical ULTRA) 29 Branch mg iron- 1 mg-200 mg Cap PNV 67-iron 2020-0 Yes [id number] 1{each} Take 1 Univers ps-folate 2-22 Each by ity of no.1-dha 00:00: mouth [place] (VITAFOL 00 daily. Medical ULTRA) 29 Branch mg iron- 1 mg-200 mg Cap PNV 67-iron 2020-0 Yes [id number] 1{each} Take 1 Univers ps-folate 2-22 Each by ity of no.1-dha 00:00: mouth [place] (VITAFOL 00 daily. Medical ULTRA) 29 Branch mg iron- 1 mg-200 mg Cap PNV 67-iron 2020-0 Yes [id number] 1{each} Take 1 Univers ps-folate 2-22 Each by ity of no.1-dha 00:00: mouth [place] (VITAFOL 00 daily. Medical ULTRA) 29 Branch mg iron- 1 mg-200 mg Cap PNV 67-iron 2020-0 Yes [id number] 1{each} Take 1 Univers ps-folate 2-22 Each by ity of no.1-dha 00:00: mouth [place] (VITAFOL 00 daily. Medical ULTRA) 29 Branch mg iron- 1 mg-200 mg Cap PNV 67-iron 2020-0 Yes [id number] 1{each} Take 1 Univers ps-folate 2-22 Each by ity of no.1-dha 00:00: mouth [place] (VITAFOL 00 daily. Medical ULTRA) 29 Branch mg iron- 1 mg-200 mg Cap PNV 67-iron 2020-0 Yes [id number] 1{each} Take 1 Univers ps-folate 2-22 Each by ity of no.1-dha 00:00: mouth [place] (VITAFOL 00 daily. Medical ULTRA) 29 Branch mg iron- 1 mg-200 mg Cap PNV 67-iron 2020-0 Yes [id number] 1{each} Take 1 Univers ps-folate 2-22 Each by ity of no.1-dha 00:00: mouth [place] (VITAFOL 00 daily. Medical ULTRA) 29 Branch mg iron- 1 mg-200 mg Cap PNV 67-iron 2020-0 Yes [id number] 1{each} Take 1 Univers ps-folate 2-22 Each by ity of no.1-dha 00:00: mouth [place] (VITAFOL 00 daily. Medical ULTRA) 29 Branch mg iron- 1 mg-200 mg Cap PNV 67-iron 2020-0 Yes [id number] 1{each} Take 1 Univers ps-folate 2-22 Each by ity of no.1-dha 00:00: mouth [place] (VITAFOL 00 daily. Medical ULTRA) 29 Branch mg iron- 1 mg-200 mg Cap PNV 67-iron 2020-0 Yes [id number] 1{each} Take 1 Univers ps-folate 2-22 Each by ity of no.1-dha 00:00: mouth [place] (VITAFOL 00 daily. Medical ULTRA) 29 Branch mg iron- 1 mg-200 mg Cap PNV 67-iron 2020-0 Yes [id number] 1{each} Take 1 Univers ps-folate 2-22 Each by ity of no.1-dha 00:00: mouth [place] (VITAFOL 00 daily. Medical ULTRA) 29 Branch mg iron- 1 mg-200 mg Cap PNV 67-iron 2021-0 Yes [id number] 1{each} Take 1 Univers ps-folate 2-22 Each by ity of no.1-dha 00:00: mouth [place] (VITAFOL 00 daily. Medical ULTRA) 29 Branch mg iron- 1 mg-200 mg Cap PNV 67-iron 2020-0 Yes [id number] 1{each} Take 1 Univers ps-folate 2-22 Each by ity of no.1-dha 00:00: mouth [place] (VITAFOL 00 daily. Medical ULTRA) 29 Branch mg iron- 1 mg-200 mg Cap PNV 67-iron 2020-0 Yes [id number] 1{each} Take 1 Univers ps-folate 2-22 Each by ity of no.1-dha 00:00: mouth [place] (VITAFOL 00 daily. Medical ULTRA) 29 Branch mg iron- 1 mg-200 mg Cap PNV 67-iron 2020-0 Yes [id number] 1{each} Take 1 Univers ps-folate 2-22 Each by ity of no.1-dha 00:00: mouth [place] (VITAFOL 00 daily. Medical ULTRA) 29 Branch mg iron- 1 mg-200 mg Cap PNV 67-iron 2020-0 Yes [id number] 1{each} Take 1 Univers ps-folate 2-22 Each by ity of no.1-dha 00:00: mouth [place] (VITAFOL 00 daily. Medical ULTRA) 29 Branch mg iron- 1 mg-200 mg Cap PNV 67-iron 2020-0 Yes [id number] 1{each} Take 1 Univers ps-folate 2-22 Each by ity of no.1-dha 00:00: mouth [place] (VITAFOL 00 daily. Medical ULTRA) 29 Branch mg iron- 1 mg-200 mg Cap PNV 67-iron 2020-0 Yes [id number] 1{each} Take 1 Univers ps-folate 2-22 Each by ity of no.1-dha 00:00: mouth [place] (VITAFOL 00 daily. Medical ULTRA) 29 Branch mg iron- 1 mg-200 mg Cap PNV 67-iron 2020-0 Yes [id number] 1{each} Take 1 Univers ps-folate 2-22 Each by ity of no.1-dha 00:00: mouth [place] (VITAFOL 00 daily. Medical ULTRA) 29 Branch mg iron- 1 mg-200 mg Cap PNV 67-iron 2020-0 Yes [id number] 1{each} Take 1 Univers ps-folate 2-22 Each by ity of no.1-dha 00:00: mouth [place] (VITAFOL 00 daily. Medical ULTRA) 29 Branch mg iron- 1 mg-200 mg Cap PNV 67-iron 2020-0 Yes [id number] 1{each} Take 1 Univers ps-folate 2-22 Each by ity of no.1-dha 00:00: mouth [place] (VITAFOL 00 daily. Medical ULTRA) 29 Branch mg iron- 1 mg-200 mg Cap PNV 67-iron 2020-0 Yes [id number] 1{each} Take 1 Univers ps-folate 2-22 Each by ity of no.1-dha 00:00: mouth [place] (VITAFOL 00 daily. Medical ULTRA) 29 Branch mg iron- 1 mg-200 mg Cap PNV 67-iron 2020-0 Yes [id number] 1{each} Take 1 Univers ps-folate 2-22 Each by ity of no.1-dha 00:00: mouth [place] (VITAFOL 00 daily. Medical ULTRA) 29 Branch mg iron- 1 mg-200 mg Cap PNV 67-iron 2020-0 Yes [id number] 1{each} Take 1 Univers ps-folate 2-22 Each by ity of no.1-dha 00:00: mouth [place] (VITAFOL 00 daily. Medical ULTRA) 29 Branch mg iron- 1 mg-200 mg Cap PNV 67-iron 2020-0 Yes [id number] 1{each} Take 1 Univers ps-folate 2-22 Each by ity of no.1-dha 00:00: mouth [place] (VITAFOL 00 daily. Medical ULTRA) 29 Branch mg iron- 1 mg-200 mg Cap PNV 67-iron 2020-0 Yes [id number] 1{each} Take 1 Univers ps-folate 2-22 Each by ity of no.1-dha 00:00: mouth [place] (VITAFOL 00 daily. Medical ULTRA) 29 Branch mg iron- 1 mg-200 mg Cap PNV 67-iron 2020-0 Yes [id number] 1{each} Take 1 Univers ps-folate 2-22 Each by ity of no.1-dha 00:00: mouth [place] (VITAFOL 00 daily. Medical ULTRA) 29 Branch mg iron- 1 mg-200 mg Cap metroNIDAZO 2020- No [id number] 2000mg Take 4 Univers LE 500 mg 10-25 tablets by ity of tablet 00:00: 05:59 [place] for 1 Medical dose. Branch metroNIDAZO 2020- No [id number] 2000mg Take 4 Univers LE 500 mg 10-25 tablets by [place]y of tablet 00:00: 05:[place] now for 1 Medical dose. Branch cefTRIAXone 2020- No 250mg Univ ers (ROCEPHIN) 10-15 ity of injection 21:00: 19:59 [place] 250 mg 00 :00 [facility] cefTRIAXone 2020- No 250mg 250 mg, U nivers (ROCEPHIN) 10-15 Intramuscu it y of injection 21:00: 19:59 [place] 250 mg 00 :00 1 dose, Medical [facility] Branch 10/15/20 at 1500, [place]
Re ason for Anti-Infec tive: Documented Infection< br>Documen kimber Infection Site: Other
O ther site: genitourin sam
Dur ation of Therapy: Other (see Comments) cefTRIAXone 2020- No 250mg Univ ers (ROCEPHIN) 10-15 ity of injection 21:00: 19:59 [place] 250 mg 00 :00 [facility] cefTRIAXone 2020- No 250mg 250 mg, U nivers (ROCEPHIN) 10-15 Intramuscu it y of injection 21:00: 19:59 [place], [place]CE, [place] 250 mg 00 :00 1 dose, Medical Fri Branch 10/15/20 at 1500, [place]
Re ason for Anti-Infec tive: Documented Infection< br>Documen kimber Infection Site: Other
O ther site: genitourin sam
Dur ation of Therapy: Other (see Comments) azithromyci 2020- No [id number] 1000mg Take 2 Univers n 500 mg 10-14 tablets by ity of tablet 00:00: 05:59 [place] for 1 Medical dose. Jj wang 2020- No [id number] 1000mg Take 2 Univers n 500 mg 10-14 tablets by ity of tablet 00:00: 05:59 [place] :[place] now for 1 Medical dose. Jj wang 1- No [id number] 1000mg Take 2 Univers n 500 mg 10-14 tablets by ity of tablet 00:00: 05:59 [place] 00 :[place] now for 1 Medical dose. Branch No known No Univers medications ity [facility] No known No Univers medications ity [facility] No [facility] No Univers medications ity [facility] medications [facility] No known No Univers medications [facility] Immunizations Ordered Filled Immunization Date Status Comments [facility] e Immunization Name Name Influenza Virus 2020-10-12 Completed Universit y of Vaccine [facility] .5 mL 00:00:00 [place] [facility] Influenza Virus 2020-10-12 Completed Universit y of [facility] [place] .5 mL 00:00:00 [place] [facility] 6+ [place] [facility] Influenza Virus 2020-10-12 Completed Universit y of [facility] .5 mL 00:00:00 [place] [facility] 6[facility] [place] [facility] Influenza Virus 2020-10-12 Completed Universit y of [facility] .5 mL 00:00:00 [place] [facility] 6[facility] [place] [facility] Influenza Virus 2020-10-12 Completed Universit y of [facility] [place] .5 mL 00:00:00 [place] [facility] [place] [facility] Influenza Virus 2020-10-12 Completed Universit y of [facility] .5 mL 00:00:00 [place] [facility] [place] [facility] Influenza Virus 2020-10-12 Completed Universit y of [facility] .5 mL 00:00:00 [place] [facility] [place] [facility] Influenza Virus 2020-10-12 Completed Universit y of [facility] .5 mL 00:00:00 [place] [facility] [place] [facility] Influenza Virus 2020-10-12 Completed Universit y of [facility] .5 mL 00:00:00 [place] [facility] 6[facility] [place] [facility] Influenza Virus 2020-10-12 Completed Universit y of Vacc[facility] .5 mL 00:00:00 [place] [facility] 6+ [facility] Influenza Virus 2020-10-12 Completed Universit y of Vaccine [facility] .5 mL 00:00:00 [place] [facility] 6+ [facility] Influenza Virus 2020-10-12 Completed Universit y of [facility] .5 mL 00:00:00 [place] [facility] 6+ [facility] Influenza Virus 2020-10-12 Completed Universit y of [facility] .5 mL 00:00:00 [place] [facility] 6+ [facility] Influenza Virus 2020-10-12 Completed Universit y of [facility] .5 mL 00:00:00 [place] [facility] 6+ [facility] Influenza Virus 2020-10-12 Completed Universit y of Vaccine [facility] .5 mL 00:00:00 [place] [facility] 6+ [facility] Influenza Virus 2020-10-12 Completed Universit y of [facility] .5 mL 00:00:00 [place] [facility] 6+ [facility] Influenza Virus 2020-10-12 Completed Universit y of Vaccine [facility] .5 mL 00:00:00 [place] [facility] 6+ [facility] Influenza Virus 2020-10-12 Completed Universit y of Vaccine [facility] .5 mL 00:00:00 [place] [facility] 6+ [facility] Influenza Virus 2020-10-12 Completed Universit y of Vaccine [facility] .5 mL 00:00:00 [place] [facility] 6+ [facility] Influenza Virus 2020-10-12 Completed Universit y of Vaccine [facility] .5 mL 00:00:00 [place] [facility] 6+ [facility] Influenza Virus 2020-10-12 Completed Universit y of Vaccine [facility] .5 mL 00:00:00 [place] [facility] 6+ [facility] Influenza Virus 2020-10-12 Completed Universit y of [facility] .5 mL 00:00:00 [place] [facility] 6+ [facility] Influenza Virus 2020-10-12 Completed Universit y of Vacc[facility] .5 mL 00:00:00 [place] [facility] 6+ [facility] Influenza Virus 2020-10-12 Completed Universit y of [facility] .5 mL 00:00:00 [place] [facility] 6+ [facility] Influenza Virus 2020-10-12 Completed Universit y of [facility] .5 mL 00:00:00 [place] [facility] 6+ [facility] Influenza Virus 2020-10-12 Completed Universit y of Vacc[facility] .5 mL 00:00:00 [place] [facility] 6+ [facility] Influenza Virus 2020-10-12 Completed Universit y of Vaccine [facility] .5 mL 00:00:00 [place] [facility] 6+ [facility] Influenza Virus 2020-10-12 Completed Universit y of Vaccine [facility] .5 mL 00:00:00 [place] [facility] 6+ [facility] Influenza Virus 2020-10-12 Completed Universit y of Vaccine [facility] .5 mL 00:00:00 [place] [facility] 6+ [facility] Influenza Virus 2020-10-12 Completed Universit y of Vaccine [facility] .5 mL 00:00:00 [place] [facility] 6+ [facility] Influenza Virus 2020-10-12 Completed Universit y of Vacc[facility] .5 mL 00:00:00 [place] [facility] 6+ [facility] Influenza Virus 2020-10-12 Completed Universit y of Vaccine [facility] .5 mL 00:00:00 [place] [facility] 6+ [facility] Influenza Virus 2020-10-12 Completed Universit y of Vaccine [facility] .5 mL 00:00:00 [place] [facility] 6+ [facility] Influenza Virus 2020-10-12 Completed Universit y of Vaccine [facility] .5 mL 00:00:00 [place] [facility] 6+ [facility] Influenza Virus 2020-10-12 Completed Universit y of Vaccine [facility] .5 mL 00:00:00 [place] [facility] 6+ [facility] Influenza Virus 2020-10-12 Completed Universit y of [facility] .5 mL 00:00:00 [place] [facility] 6+ [facility] Influenza Virus 2020-10-12 Completed Universit y of [facility] .5 mL 00:00:00 [place] [facility] 6+ [facility] Branch Influenza Virus 2020-10-12 Completed Universit y of [facility] .5 mL 00:00:00 [place] [facility] 6+ [facility] Branch Influenza Virus 2020-10-12 Completed Universit y of Vaccine [facility] .5 mL 00:00:00 [place] [facility] 6+ [facility] Influenza Virus 2020-10-12 Completed Universit y of Vaccine [facility] .5 mL 00:00:00 [place] [facility] 6+ [facility] Branch Influenza Virus 2020-10-12 Completed Universit y of Vaccine [facility] .5 mL 00:00:00 [place] [facility] 6+ [facility] Influenza Virus 2020-10-12 Completed Universit y of Vaccine [facility] .5 mL 00:00:00 [place] [facility] 6+ [facility] Influenza Virus 2020-10-12 Completed Universit y of Vaccine [facility] .5 mL 00:00:00 [place] [facility] 6+ [facility] Influenza Virus 2020-10-12 Completed Universit y of Vaccine Quad .5 mL 00:00:00 [place] [facility] 6+ [facility] Branch Influenza Virus 2020-10-12 Completed Universit y of Vaccine [facility] .5 mL 00:00:00 [place] [facility] 6+ [facility] Influenza Virus 2020-10-12 Completed Universit y of [facility] .5 mL 00:00:00 [place] [facility] 6+ [facility] Influenza Virus 2020-10-12 Completed Universit y of Vaccine Quad .5 mL 00:00:00 [facility] 6+ [place] Branch HPV9 2017-04-24 Completed University of 00:00:00 [facility] Branch HPV9 2017-04-24 Completed University of 00:00:00 [facility] Branch HPV9 2017-04-24 Completed University of 00:00:00 [facility] Branch HPV9 2017-04-24 Completed University of 00:00:00 [facility] Branch HPV9 2017-04-24 Completed University of 00:00:00 [facility] Branch HPV9 2017-04-24 Completed University of 00:00:00 [facility] Branch HPV9 2017-04-24 Completed University of 00:00:00 [facility] Branch HPV9 2017-04-24 Completed University of 00:00:00 [facility] Branch HPV9 2017-04-24 Completed University of 00:00:00 [facility] HPV9 2017-04-24 Completed University of 00:00:00 [facility] Branch HPV9 2017-04-24 Completed University of 00:00:00 [facility] Branch HPV9 2017-04-24 Completed University of 00:00:00 [place] [facility] HPV9 2017-04-24 Completed University of 00:00:00 [facility] Branch HPV9 2017-04-24 Completed University of 00:00:00 [facility] Branch HPV9 2017-04-24 Completed University of 00:00:00 [facility] HPV9 2017-04-24 Completed University of 00:00:00 [place] [facility] HPV9 2017-04-24 Completed University of 00:00:00 [place] [facility] HPV9 2017-04-24 Completed University of 00:00:00 [facility] Branch HPV9 2017-04-24 Completed University of 00:00:00 [facility] HPV9 2017-04-24 Completed University of 00:00:00 [facility] HPV9 2017-04-24 Completed University of 00:00:00 [facility] HPV9 2017-04-24 Completed University of 00:00:00 [facility] HPV9 2017-04-24 Completed University of 00:00:00 [facility] Branch HPV9 2017-04-24 Completed University of 00:00:00 [facility] Branch HPV9 2017-04-24 Completed University of 00:00:00 [facility] Branch HPV9 2017-04-24 Completed University of 00:00:00 [facility] HPV9 2017-04-24 Completed University of 00:00:00 [facility] Branch HPV9 2017-04-24 Completed University of 00:00:00 [facility] Branch HPV9 2017-04-24 Completed University of 00:00:00 [facility] HPV9 2017-04-24 Completed University of 00:00:00 [facility] HPV9 2017-04-24 Completed University of 00:00:00 [facility] HPV9 2017-04-24 Completed University of 00:00:00 [facility] HPV9 2017-04-24 Completed University of 00:00:00 [facility] HPV9 2017-04-24 Completed University of 00:00:00 [facility] HPV9 2017-04-24 Completed University of 00:00:00 [facility] HPV9 2017-04-24 Completed University of 00:00:00 [facility] HPV9 2017-04-24 Completed University of 00:00:00 [facility] HPV9 2017-04-24 Completed University of 00:00:00 [facility] HPV9 2017-04-24 Completed University of 00:00:00 [facility] HPV9 2017-04-24 Completed University of 00:00:00 [facility] HPV9 2017-04-24 Completed University of 00:00:00 [facility] HPV9 2017-04-24 Completed University of 00:00:00 [facility] HPV9 2017-04-24 Completed University of 00:00:00 [facility] HPV9 2017-04-24 Completed University of 00:00:00 [facility] HPV9 2017-04-24 Completed University of 00:00:00 [facility] HPV9 2017-04-24 Completed University of 00:00:00 [facility] HPV9 2017-04-24 Completed University of 00:00:00 [facility] HPV9 2017-04-24 Completed University of 00:00:00 [facility] Td 2008-05-06 Completed University of 00:00:00 [place] [facility] Td 2008-05-06 Completed University of 00:00:00 [place] [facility] Td 2008-05-06 Completed University of 00:00:00 [place] [facility] Td 2008-05-06 Completed University of 00:00:00 [place] [facility] Td 2008-05-06 Completed University of 00:00:00 [place] [facility] Td 2008-05-06 Completed University of 00:00:00 [place] [facility] Td 2008-05-06 Completed University of 00:00:00 [place] [facility] Td 2008-05-06 Completed University of 00:00:00 [place] [facility] Td 2008-05-06 Completed University of 00:00:00 [place] [facility] Td 2008-05-06 Completed University of 00:00:00 [place] [facility] Td 2008-05-06 Completed University of 00:00:00 [place] [facility] Td 2008-05-06 Completed University of 00:00:00 [place] [facility] Td 2008-05-06 Completed University of 00:00:00 [place] [facility] Td 2008-05-06 Completed University of 00:00:00 [place] [facility] Td 2008-05-06 Completed University of 00:00:00 [place] [facility] Td 2008-05-06 Completed University of 00:00:00 [place] [facility] Td 2008-05-06 Completed University of 00:00:00 [place] [facility] Td 2008-05-06 Completed University of 00:00:00 [place] [facility] Td 2008-05-06 Completed University of 00:00:00 [facility] Td 2008-05-06 Completed University of 00:00:00 [facility] Td 2008-05-06 Completed University of 00:00:00 [place] [facility] Td 2008-05-06 Completed University of 00:00:00 [place] [facility] Td 2008-05-06 Completed University of 00:00:00 [place] [facility] Td 2008-05-06 Completed University of 00:00:00 [place] [facility] Td 2008-05-06 Completed University of 00:00:00 [place] [facility] Td 2008-05-06 Completed University of 00:00:00 [place] [facility] Td 2008-05-06 Completed University of 00:00:00 [place] [facility] Td 2008-05-06 Completed University of 00:00:00 [place] [facility] Td 2008-05-06 Completed University of 00:00:00 [place] [facility] Td 2008-05-06 Completed University of 00:00:00 [place] [facility] Td 2008-05-06 Completed University of 00:00:00 [place] [facility] Td 2008-05-06 Completed University of 00:00:00 [place] [facility] Td 2008-05-06 Completed University of 00:00:00 [place] [facility] Td 2008-05-06 Completed University of 00:00:00 [place] [facility] Td 2008-05-06 Completed University of 00:00:00 [facility] Td 2008-05-06 Completed University of 00:00:00 [place] [facility] Td 2008-05-06 Completed University of 00:00:00 [place] [facility] Td 2008-05-06 Completed University of 00:00:00 [place] [facility] Td 2008-05-06 Completed University of 00:00:00 [facility] Td 2008-05-06 Completed University of 00:00:00 [place] [facility] Td 2008-05-06 Completed University of 00:00:00 [place] [facility] Td 2008-05-06 Completed University of 00:00:00 [facility] Td 2008-05-06 Completed University of 00:00:00 [facility] Td 2008-05-06 Completed University of 00:00:00 [place] [facility] Td 2008-05-06 Completed University of 00:00:00 [facility] Td 2008-05-06 Completed University of 00:00:00 [facility] Td 2008-05-06 Completed University of 00:00:00 [facility] Td 2008-05-06 Completed University of 00:00:00 [facility] Vital Signs Vital Name Observation Time Observation Value Comments Source Systolic blood 2022-01-12 15:19:00 123 mm[Hg] Univer sity of pressure [facility] Diastolic blood 2022-01-12 15:19:00 99 mm[Hg] Unive rsity of pressure [facility] Heart rate 2022-01-12 15:19:00 100 /min [facility] Body temperature 2022-01-12 15:19:00 37.33 [facility] 2022-01-12 15:19:00 18 /min [facility] height 2022-01-12 15:19:00 152.4 cm [facility] Body weight 2022-01-12 15:19:00 68.04 kg [facility] BMI 2022-01-12 15:19:00 29.29 kg/m2 [facility] [place] [facility] Oxygen saturation in 2022-01-12 15:19:00 100 /min University of Arterial blood by [place] [facility] yoni Pulse oximetry Branch Systolic blood 2021-04-18 14:22:00 122 mm[Hg] Univer sity of pressure [place] [facility] Diastolic blood 2021-04-18 14:22:00 83 mm[Hg] Unive rsity of pressure [place] [facility] Heart rate 2021-04-18 14:22:00 67 /min [facility]i [facility] [place] [facility] Body temperature 2021-04-18 14:22:00 36.33 [place] Univ ersity [facility] [place] [facility] Respiratory rate 2021-04-18 14:22:00 16 /min Univ ersity of [place] [facility] Body height 2021-04-18 14:22:00 152.4 cm [facility] [place] [facility] Body weight 2021-04-18 14:22:00 74.447 kg [facility] [place] [facility] BMI 2021-04-18 14:22:00 32.05 kg/m2 [facility] [place] [facility] Systolic blood 2021-03-28 14:38:00 106 mm[Hg] Univer sity of pressure [place] [facility] Diastolic blood 2021-03-28 14:38:00 79 mm[Hg] Unive rsity of pressure [facility] Heart rate 2021-03-28 14:38:00 68 /min [facility] [place] [facility] Body temperature 2021-03-28 14:38:00 36.94 [place] Univ ersity of [place] [facility] Respiratory rate 2021-03-28 14:38:00 16 /min Univ ersity of [place] [facility] Body height 2021-03-28 14:38:00 152.4 cm [facility] [place] [facility] Body weight 2021-03-28 14:38:00 74.645 kg [facility] [place] [facility] BMI 2021-03-28 14:38:00 32.14 kg/m2 [facility] [place] [facility] Heart rate 2021-03-05 02:30:00 93 /min [facility] [place] [facility] Oxygen saturation in 2021-03-05 02:30:00 100 /min University of Arterial blood by [place] Fe[facility] yoni Pulse oximetry Branch Systolic blood 2021-03-05 00:13:00 108 mm[Hg] Univer sity of pressure [place] [facility] Diastolic blood 2021-03-05 00:13:00 62 mm[Hg] Unive rsity of pressure [place] [facility] Body temperature 2021-03-05 00:13:00 36.67 [place] [facility] ersity [facility] [place] [facility] Respiratory rate 2021-03-05 00:13:00 18 /min Univ ersity of [place] [facility] Body height 2021-03-05 00:13:00 152.4 cm [facility] [place] [facility] Body weight 2021-03-05 00:13:00 78.019 kg [facility] [place] [facility] BMI 2021-03-05 00:13:00 33.59 kg/m2 [facility] [place] [facility] Systolic blood 2021-03-04 14:33:00 102 mm[Hg] Univer sity of pressure [place] [facility] Diastolic blood 2021-03-04 14:33:00 70 mm[Hg] Unive rsity of pressure [place] [facility] Heart rate 2021-03-04 14:33:00 78 /min [facility] [place] [facility] Body temperature 2021-03-04 14:33:00 36.5 [place] Univ ersity [facility] [place] [facility] Respiratory rate 2021-03-04 14:33:00 16 /min Univ ersity of [place] [facility] Body height 2021-03-04 14:33:00 152.4 cm [facility] [place] [facility] Body weight 2021-03-04 14:33:00 77.837 kg [facility] [place] [facility] BMI 2021-03-04 14:33:00 33.51 kg/m2 [facility] [place] [facility] Systolic blood 2021-02-23 15:30:00 110 mm[Hg] Univer sity of pressure [place] [facility] Diastolic blood 2021-02-23 15:30:00 68 mm[Hg] Unive rsity of pressure [place] [facility] Heart rate 2021-02-23 15:30:00 80 /min [facility] [place] [facility] Body temperature 2021-02-23 15:30:00 36.83 [place] Univ ersity [facility] [place] [facility] Respiratory rate 2021-02-23 15:30:00 24 /min Univ ersity of [place] [facility] Body height 2021-02-23 15:30:00 152.4 cm [facility] [place] [facility] Body weight 2021-02-23 15:30:00 78.382 kg [facility] [place] [facility] BMI 2021-02-23 15:30:00 33.75 kg/m2 [facility] [place] [facility] Systolic blood 2021-02-18 18:16:00 101 mm[Hg] Univer sity of pressure [facility] Diastolic blood 2021-02-18 18:16:00 66 mm[Hg] Unive rsity of pressure [place] [facility] Heart rate 2021-02-18 18:16:00 76 /min [facility] [place] [facility] Body temperature 2021-02-18 18:16:00 36.78 [place] [facility] ers[facility] [place] [facility] Respiratory rate 2021-02-18 18:16:00 24 /min Univ ersity [facility] [place] [facility] Body height 2021-02-18 18:16:00 152.4 cm [facility] [place] [facility] Body weight 2021-02-18 18:16:00 77.747 kg [facility] [place] [facility] BMI 2021-02-18 18:16:00 33.47 kg/m2 [facility] [place] [facility] Systolic blood 2021-01-21 17:53:00 101 mm[Hg] Univer sity of pressure [facility] Diastolic blood 2021-01-21 17:53:00 58 mm[Hg] Unive rsity of pressure [place] [facility] Heart rate 2021-01-21 17:53:00 78 /min [facility] [place] [facility] Body temperature 2021-01-21 17:53:00 36.83 [place] Univ ersity [facility] [place] [facility] Respiratory rate 2021-01-21 17:53:00 16 /min Univ ersity [facility] [place] [facility] Body weight 2021-01-21 17:53:00 75.07 kg [facility] [place] [facility] BMI 2021-01-21 17:53:00 30.27 kg/m2 [facility] [place] [facility] Systolic blood 2020-12-24 17:54:00 103 mm[Hg] Univer sity of pressure [place] [facility] Diastolic blood 2020-12-24 17:54:00 66 mm[Hg] Unive rsity of pressure [facility] Heart rate 2020-12-24 17:54:00 70 /min [facility] [place] [facility] Body temperature 2020-12-24 17:54:00 36.89 [place] Univ ersity [facility] [place] [facility] Respiratory rate 2020-12-24 17:54:00 16 /min Univ ersity of [place] [facility] Body height 2020-12-24 17:54:00 157.5 cm [facility] [place] [facility] Body weight 2020-12-24 17:54:00 72.774 kg [facility] [place] [facility] Branch BMI 2020-12-24 17:54:00 29.34 kg/m2 [facility] Systolic blood 2020-12-13 14:15:00 107 mm[Hg] [facility] Diastolic blood 2020-12-13 14:15:00 71 mm[Hg] [facility] Heart rate 2020-12-13 14:15:00 72 /min [facility] Body temperature 2020-12-13 14:15:00 36.83 [place] [facility] Respiratory rate 2020-12-13 14:15:00 16 /min [facility] Body height 2020-12-13 14:15:00 152.4 cm [facility] Body weight 2020-12-13 14:15:00 71.81 kg [facility] BMI 2020-12-13 14:15:00 30.92 kg/m2 [facility] Systolic blood 2020-12-13 14:15:00 107 mm[Hg] [facility] Diastolic blood 2020-12-13 14:15:00 71 mm[Hg] [facility] Heart rate 2020-12-13 14:15:00 72 /min [facility] Body temperature 2020-12-13 14:15:00 36.83 [place] [facility] Respiratory rate 2020-12-13 14:15:00 16 /min [facility] Body height 2020-12-13 14:15:00 152.4 cm [facility] Body weight 2020-12-13 14:15:00 71.81 kg [facility] BMI 2020-12-13 14:15:00 30.92 kg/m2 [facility] Systolic blood 2020-11-18 20:09:00 109 mm[Hg] [facility] Diastolic blood 2020-11-18 20:09:00 69 mm[Hg] [facility] Heart rate 2020-11-18 20:09:00 80 /min [facility] Body temperature 2020-11-18 20:09:00 37 [place] [facility] Respiratory rate 2020-11-18 20:09:00 16 /min [facility] Body height 2020-11-18 20:09:00 152.4 cm [facility] Body weight 2020-11-18 20:09:00 70.364 kg [facility] BMI 2020-11-18 20:09:00 30.30 kg/m2 [facility] Systolic blood 2020-11-15 20:24:00 109 mm[Hg] [facility] Diastolic blood 2020-11-15 20:24:00 69 mm[Hg] [facility] Heart rate 2020-11-15 20:24:00 67 /min [facility] Body temperature 2020-11-15 20:24:00 36.56 [place] [facility] Respiratory rate 2020-11-15 20:24:00 16 /min [facility] Body height 2020-11-15 20:24:00 152.4 cm [facility] Body weight 2020-11-15 20:24:00 69.174 kg [facility] BMI 2020-11-15 20:24:00 29.78 kg/m2 [facility] Systolic blood 2020-10-15 19:37:00 122 mm[Hg] [facility] Diastolic blood 2020-10-15 19:37:00 74 mm[Hg] [facility] Heart rate 2020-10-15 19:37:00 91 /min [facility] Body temperature 2020-10-15 19:37:00 36.56 [place] [facility] Respiratory rate 2020-10-15 19:37:00 16 /min [facility] Body height 2020-10-15 19:37:00 152.4 cm [facility] Body weight 2020-10-15 19:37:00 68.663 kg [facility] BMI 2020-10-15 19:37:00 29.56 kg/m2 [facility] Systolic blood 2020-10-12 16:22:00 107 mm[Hg] [facility] Diastolic blood 2020-10-12 16:22:00 75 mm[Hg] [facility] Heart rate 2020-10-12 16:22:00 80 /min [facility] Body temperature 2020-10-12 16:22:00 37.22 [place] [facility] Respiratory rate 2020-10-12 16:22:00 16 /min [facility] Body height 2020-10-12 16:22:00 152.4 cm [facility] Body weight 2020-10-12 16:22:00 68.947 kg [facility] BMI 2020-10-12 16:22:00 29.69 kg/m2 [facility] Procedures Procedure Date / Time Performed Performing Clinician Sour e RAPID STREP SCREEN FOR 2022-01-12 15:25:00 Caty Arteaga [facility] GROUP A Medical Branch CONSENT/REFUSAL FOR 2022-01-12 15:14:38 Doctor Unassigned, No [facility] Name Medical Branch TREATMENT POCT URINALYSIS 2021-03-28 14:41:00 [facility] EXTERNAL PROVIDER 2021-03-11 05:01:00 Doctor Unassigned, No [facility] RECORDS Name Medical Branch COVID-19 (ID NOW RAPID 2021-03-05 01:59:00 [facility] TESTING) Medical Branch URINALYSIS 2021-03-05 01:46:00 Stevie Broderick [place] [facility] US PELVIS > 2021-03-05 01:42:27 Stevie Broderick [facility] Branch CBC WITH DIFF 2021-03-05 00:45:00 Stevie Broderick [place] [facility] HB ABO GROUPING 2021-03-05 00:45:00 Mika Stevie [facility] o [facility] HIV 1/2 AG-AB WITH 2021-03-05 00:45:00 Stevie Broderick [facility] [id number] 2021-03-05 00:00:00 [facility] [id number] 2021-03-05 00:00:00 [facility] NOTICE OF PRIVACY 2021-03-04 23:24:47 Doctor Unassigned, No Univ [facility] PRACTICES Name [facility] CONSENT/REFUSAL FOR 2021-03-04 23:23:25 Doctor Unassigned, No [facility] DIAGNOSIS AND [facility] TREATMENT POCT URINALYSIS 2021-03-04 15:45:00 Akinsipe Rosana C [facility] POCT URINALYSIS 2021-02-23 15:41:00 Akinsipe Rosana C [facility] POCT URINALYSIS 2021-02-18 18:24:00 Akinsishreyas Rosana C [facility] POCT URINALYSIS 2020-12-24 18:30:00 Akinsipe Rosana C [facility] POCT URINALYSIS 2020-12-13 14:46:00 Akinsipe Rosana C Univers [facility] POCT URINALYSIS 2020-11-18 20:12:00 Akinsipe Rosana C [facility] POCT URINALYSIS 2020-11-15 20:27:00 Akinpaco Rosana C [facility] FLU VACC ([id number]), 2020-10-12 16:25:42 Rosana Pak C U [facility] 6+ MONTHS, IM, QUAD Medical Bran ch POCT TEST 2020-10-12 16:11:00 Rosana Pak Uni versity of [facility] POCT URINALYSIS W/O 2020-10-12 16:11:[address] [facility] SPECIFIC GRAVITY [facility] ASSIGNMENT OF BENEFITS 2020-10-12 16:09:33 Doctor Unassigned, No [facility] Encounters Start End Encounter Admission Attending Care Care Encounter Source Date/Time Date/Time Type Type Clinicians Facility Department ID 2021-07-25 Outpatient P [facility] CLAU [id number] Univers 00:48:03 ity [facility] 2021-07-25 Emergency [facility] [id number] Univers 00:47:26 ity [facility] 2022-01-12 2022-01-12 Emergency [facility] [id number] Univers 10:20:00 11:46:00 [facility] 2022-01-12 2022-01-12 Emergency Singer [facility] [id number] [id number] Univers 10:20:00 11:46:00 Caty [place] 350.1.13.10 i ty [facility] 4.2.7.2.686 [facility] [id number] [facility] 084 Branch 2022-01-12 2022-01-12 Orders Doctor XIAO 1.2.840.114 [id number] Univers 00:00:00 00:00:00 Only Unassigned, BERTRAM 350.1.13.10 ity of [place] [facility] 4.2.7.2.686 Rolo as [phone] [facility] 009 Branch 2021-05-11 2021-05-11 Telephone [facility] 1.2.840.114 [id number] Univers 00:00:00 00:00:00 Rosana Berger NEGATIVE SPOTTER 350.1.13.10 ity of [facility] 4.2.7.2.686 Rolo as MATERNAL [phone] Med ical & CHILD [address] [place] [address] 2021-04-18 2021-04-18 Office [facility] [id number] Univers 09:15:36 09:30:36 Visit Rosana Berger NEGATIVE SPOTTER 350.1.13.10 ity of REGIONAL 4.2.7.2.686 Rolo as MATERNAL [phone] [facility] CHILD [address] [place] [address] 2021-04-18 2021-04-18 Outpatient R AKINSIPE, [facility] [id number] Univers 09:30:00 09:30:00 ROSANA [id number] ity o [facility] 2021-04-18 2021-04-18 Outpatient R AKINSIPE, [facility] [id number] Univers 09:30:00 09:30:00 ROSANA ity o [facility] 2021-04-18 2021-04-18 Outpatient R [facility] [id number] Univers 09:00:00 09:00:00 ity [facility] 2021-03-28 2021-03-28 Routine Akinsipe, [facility] [id number] Univers 09:26:12 10:03:16 Rosana Berger NEGATIVE SPOTTER 350.1.13.10 ity of Visit REGIONAL 4.2.7.2.686 Rolo as MATERNAL [id number] [facility] ical & CHILD [address] [place] [address] 2021-03-28 2021-03-28 Outpatient R AKINSIPE, [facility] [id number] Univers 09:30:00 09:30:00 ROSANA [id number] ity o [facility] 2021-03-28 2021-03-28 Outpatient R AKINSIPE, [facility] [id number] Univers 09:30:00 09:30:00 ROSANA ity o [facility] 2021-03-23 2021-03-23 Outpatient R AKINSIPE, [facility] [id number] Univers 08:00:00 08:00:00 ROSANA [id number] ity o [facility] 2021-03-23 2021-03-23 Outpatient R AKINSIPE, [facility] [id number] Univers 08:00:00 08:00:00 ROSANA ity o [facility] 2021-03-11 2021-03-11 Outpatient AKINSIPE, [facility] [id number] Univers 08:00:00 08:00:00 ROSANA [id number] ity o f [facility] 2021-03-11 2021-03-11 Outpatient R PASHA, [facility] [id number] Univers 08:00:00 08:00:00 ROSANA ity o f [facility] 2021-03-11 2021-03-11 Orders Doctor XIAO 1.2.840.114 [id number] Univers 00:00:00 00:00:00 Only Unassigned, BERTRAM 350.1.13.10 ity of [place] [facility] 4.2.7.2.686 Rolo as [phone] [facility] 009 Branch 2021-03-05 2021-03-07 Inpatient BROOKE Romo, [facility] OB [id number] [facility] 00:01:00 18:46:00 Teodoro [id number] [facility] 2021-03-04 2021-03-04 [facility] Stevie Broderick [facility] 1.2.840.114 [id number] Univers 19:03:00 22:32:00 Encounter [facility] 350.1.13.10 ity of [place] 4.2.7.2.686 [place] [facility] [id number] [facility] 083 Branch 2021-03-04 2021-03-04 Routine [facility] 1.2.638.158 [id number] Univers 09:23:36 09:49:17 Rosana Berger NEGATIVE SPOTTER 350.1.13.10 ity of Visit [facility] 4.2.7.2.686 Rolo as MATERNAL [id number] Med ical & CHILD [address] [place] [address] 2021-03-04 2021-03-04 Outpatient R PASHA, [facility] [id number] Univers 09:30:00 09:30:00 ROSANA [id number] ity o [facility] 2021-03-04 2021-03-04 Outpatient R PASHA, [facility] [id number] Univers 09:30:00 09:30:00 ROSANA pratty o [facility] 2021-03-04 2021-03-04 [facility] 1.2.840.114 [id number] Univers 00:00:00 00:00:00 Rosana C NEGATIVE SPOTTER 350.1.13.10 ity of REGIONAL 4.2.7.2.686 Rolo as MATERNAL [id number] [facility] CHILD [address] [place] [address] 2021-03-04 2021-03-04 Telephone [facility] 1.2.840.114 [id number] Univers 00:00:00 00:00:00 Rosana C NEGATIVE SPOTTER 350.1.13.10 ity of REGIONAL 4.2.7.2.686 Rolo as MATERNAL [id number] [facility] CHILD [address] [place] [address] 2021-02-24 2021-02-24 [facility] 1.2.840.114 [id number] Univers 00:00:00 00:00:00 Kristen Marquita NEGATIVE SPOTTER 350.1.13.10 it y of REGIONAL 4.2.7.2.686 Rolo as MATERNAL [phone] [facility] & CHILD [address] [place] [address] 2021-02-23 2021-02-23 Routine [facility] 1.2.879.147 [id number] Univers 10:17:46 10:47:28 Rosana C NEGATIVE SPOTTER 350.1.13.10 ity of Visit REGIONAL 4.2.7.2.686 Rolo as MATERNAL [id number] [facility] & [address] 2021-02-23 2021-02-23 [facility] [id number] Univers 10:15:00 10:15:00 ROSANA [id number] ity o [facility] 2021-02-23 2021-02-23 [facility] [id number] Univers 10:15:00 10:15:00 ROSANA ity o [facility] 2021-02-23 2021-02-23 Telephone [facility] 1.2.840.114 [id number] Univers 00:00:00 00:00:00 Rosana C NEGATIVE SPOTTER 350.1.13.10 ity of REGIONAL 4.2.7.2.686 Rolo as MATERNAL [phone] Med ical & CHILD [address] [place] [address] 2021-02-23 2021-02-23 Telephone [facility] 1.2.840.114 [id number] Univers 00:00:00 00:00:00 Rosana C NEGATIVE SPOTTER 350.1.13.10 ity of REGIONAL 4.2.7.2.686 Rolo as MATERNAL [phone] [facility] CHILD [address] [place] [address] 2021-02-18 2021-02-18 Routine [facility] 1.2.493.626 [id number] Univers 12:52:07 13:37:47 Rosana Berger NEGATIVE SPOTTER 350.1.13.10 ity of Visit REGIONAL 4.2.7.2.686 Rolo as MATERNAL [phone] [facility] & CHILD [address] [place] [address] 2021-02-18 2021-02-18 [facility] [id number] Univers 12:45:00 12:45:00 ROSANA [id number] ity o [facility] 2021-02-18 2021-02-18 Out[facility] [id number] Univers 12:45:00 12:45:00 ROSANA ity o [facility] 2021-01-28 2021-01-28 Abstract [facility] 1.2.840.114 [id number] Univers 00:00:00 00:00:00 Rosana Berger NEGATIVE SPOTTER 350.1.13.10 ity of REGIONAL 4.2.7.2.686 Rolo as MATERNAL [phone] [facility] CHILD [address] [place] [address] 2021-01-26 2021-01-26 Patient Registration Specialist Ultrasound, [facility] 1.2 .840.114 [id number] Univers 10:38:56 12:06:16 Visit Maricel Poe NEGATIVE SPOTTER 350.1.13.10 ity of REGIONAL 4.2.7.2.686 Rolo as MATERNAL [phone] [facility] CHILD [address] [facility] 2021-01-26 2021-01-26 Outpatient R [facility] [id number] Univers 10:45:00 10:45:00 [id number] [facility] 2021-01-26 2021-01-26 Outpatient P [facility] [id number] Univers 10:45:00 10:45:00 ity [facility] 2021-01-21 2021-01-21 Routine Akinsipe, [facility] 1.2.584.168 [id number] Univers 12:48:25 13:19:19 Rosana C NEGATIVE SPOTTER 350.1.13.10 ity of Visit REGIONAL 4.2.7.2.686 Rolo as MATERNAL [id number] [facility] CHILD [address] [place] [address] 2021-01-21 2021-01-21 Outpatient R AKINSIPE, [facility] [id number] Univers 12:45:00 12:45:00 ROSANA [id number] y [facility] 2021-01-21 2021-01-21 Outpatient R AKINSIPE, [facility] [id number] Univers 12:45:00 12:45:00 ROASNA ity o [facility] 2021-01-11 2021-01-11 Outpatient R AKINSIPE, [facility] [id number] Univers 10:30:00 10:30:00 ROSANA [id number] y o [facility] 2021-01-11 2021-01-11 Outpatient R AKINSIPE, [facility] [id number] Univers 10:30:00 10:30:00 ROSANA ity o [facility] 2020-12-24 2020-12-24 Routine Akinsipe, [facility] 1.2.065.950 [id number] Univers 12:46:06 13:29:21 Rosana C NEGATIVE SPOTTER 350.1.13.10 ity of Visit REGIONAL 4.2.7.2.686 Rolo as MATERNAL [phone] [facility] & CHILD [address] [place] [address] 2020-12-24 2020-12-24 Outpatient R AKINSIPE, [facility] [id number] Univers 12:45:00 12:45:00 ROSANA [id number] ity o [facility] 2020-12-24 2020-12-24 [facility] [id number] Univers 12:45:00 12:45:00 ROSANA ity o f [facility] 2020-12-24 2020-12-24 [facility] 1.2.840.114 [id number] Univers 00:00:00 00:00:00 Rosana C NEGATIVE SPOTTER 350.1.13.10 ity of REGIONAL 4.2.7.2.686 Rolo as MATERNAL [id number] [facility] ical & CHILD [address] [place] [address] 2020-12-13 2020-12-13 Routine [facility] 1.2.434.708 [id number] 08:40:34 09:52:59 Rosana C NEGATIVE SPOTTER 350.1.13.10 Visit REGIONAL 4.2.7.2.686 MATERNAL [id number] & [address] 2020-12-13 2020-12-13 Routine [facility] 1.2.424.308 [id number] Univers 08:40:34 09:52:59 Rosana C NEGATIVE SPOTTER 350.1.13.10 ity of Visit REGIONAL 4.2.7.2.686 Rolo as MATERNAL [id number] [facility] & [address] 2020-12-13 2020-12-13 [facility] [id number] Univers 09:00:00 09:00:00 ROSANA [id number] ity o f [facility] 2020-12-13 2020-12-13 Outpatient [facility] [id number] Univers 09:00:00 09:00:00 ROSANA ity o f [facility] 2020-11-22 2020-11-22 [facility]phone [facility] 1.2.840.114 [id number] 00:00:00 00:00:00 Rosana C NEGATIVE SPOTTER 350.1.13.10 REGIONAL 4.2.7.2.686 MATERNAL [id number] & [address] 2020-11-22 2020-11-22 Telephone [facility] 1.2.840.114 [id number] Univers 00:00:00 00:00:00 Rosana C NEGATIVE SPOTTER 350.1.13.10 ity of REGIONAL 4.2.7.2.686 Rolo as MATERNAL [phone] [facility] & [address] 2020-11-18 2020-11-18 Routine Akinsipe, [facility] 1.2.988.173 [id number] Univers 13:53:58 14:32:55 Rosana C NEGATIVE SPOTTER 350.1.13.10 ity of Visit REGIONAL 4.2.7.2.686 Rolo as MATERNAL [phone] [address] 2020-11-18 2020-11-18 Outpatient R AKINSIPE, [facility] [id number] Univers 14:00:00 14:00:00 ROSANA [id number] y [facility] 2020-11-18 2020-11-18 Outpatient R AKINSIPE, [facility] [id number] Univers 14:00:00 14:00:00 ROSANA y [facility] 2020-11-15 2020-11-15 Routine Akinpe, [facility] 1.2.505.295 [id number] Univers 14:19:40 14:52:07 Rosana C NEGATIVE SPOTTER 350.1.13.10 ity of Visit REGIONAL 4.2.7.2.686 Rolo as MATERNAL [id number] [facility] & [address] 2020-11-15 2020-11-15 Outpatient R AKINSIPE, [facility] [id number] Univers 14:30:00 14:30:00 ROSANA [id number] ity o [facility] 2020-11-15 2020-11-15 Outpatient R AKINSIPE, [facility] [id number] Univers 14:30:00 14:30:00 ROSANA ity o [facility] 2020-11-15 2020-11-15 Patient Registration Specialist 1Benny Room [facility] 1.2. 840.114 [id number] Univers 09:47:18 10:32:18 Visit Torsten, Sharath R NEGATIVE SPOTTER 350.1.13.10 ity of REGIONAL 4.2.7.2.686 Rolo as MATERNAL [phone] Med ical & CHILD [address] [facility] 2020-11-15 2020-11-15 Abstract [facility] 1.2.840.114 [id number] Univers 00:00:00 00:00:00 Rosana C NEGATIVE SPOTTER 350.1.13.10 ity of REGIONAL 4.2.7.2.686 Rolo as MATERNAL [id number] [facility] ical & CHILD [address] [place] [address] 2020-11-12 2020-11-12 Outpatient R [facility] [id number] Univers 08:00:00 08:00:00 [id number] ity [facility] 2020-11-12 2020-11-12 Outpatient P [facility] [id number] Univers 08:00:00 08:00:00 ity [facility] 2020-11-09 2020-11-09 Outpatient R PASHA [facility] [id number] Univers 10:45:00 10:45:00 ROSANA [id number] ity o f [facility] 2020-11-09 2020-11-09 Out[facility] [id number] Univers 10:45:00 10:45:00 ROSANA ity o f [facility] 2020-10-26 2020-10-26 Telephone [facility] 1.2.840.114 [id number] Univers 00:00:00 00:00:00 Rosana Berger NEGATIVE SPOTTER 350.1.13.10 ity of REGIONAL 4.2.7.2.686 Rolo as MATERNAL [id number] [facility] [address] [place] [address] 2020-10-25 2020-10-25 Telephone [facility] 1.2.840.114 [id number] Univers 00:00:00 00:00:00 Rosana C NEGATIVE SPOTTER 350.1.13.10 ity of REGIONAL 4.2.7.2.686 Rolo as MATERNAL [id number] [facility] ical & CHILD [address] [place] [address] 2020-10-15 2020-10-15 Nurse Visit, Natty Nurse [facility] 1.2 .840.114 [id number] Univers 13:36:20 13:57:00 Visit Rosana Pak NEGATIVE SPOTTER 350.1.13. 10 ity of [facility] 4.2.7.2.686 Rolo as MATERNAL [id number] [facility] [address] [place] [address] 2020-10-15 2020-10-15 Outpatient [facility] [id number] Univers 13:30:00 13:30:00 [id number] ity [facility] 2020-10-15 2020-10-15 Out[facility] [id number] Univers 13:30:00 13:30:00 ROSANA jamil o f [facility] 2020-10-15 2020-10-15 Telephone Pasha [facility] 1.2.840.114 [id number] Univers 00:00:00 00:00:00 Rosana Berger NEGATIVE SPOTTER 350.1.13.10 ity of [facility] 4.2.7.2.686 Rolo as MATERNAL [phone] [facility] & [address] 2020-10-14 2020-10-14 Patient Registration Specialist Lab, Natty [facility] 1.2.840. 114 [id number] Univers 13:31:32 13:46:17 Visit Rosana Pak NEGATIVE SPOTTER 350.1.13. 10 ity [facility] 4.2.7.2.686 Rolo as MATERNAL [id number] [facility] & [address] 2020-10-14 2020-10-14 Outpatient R [facility] [id number] Univers 13:30:00 13:30:00 [id number] ity [facility] 2020-10-14 2020-10-14 Outpatient R [facility] [id number] Univers 13:30:00 13:30:00 ity [facility] 2020-10-14 2020-10-14 [facility]phone [facility] 1.2.840.114 [id number] Univers 00:00:00 00:00:00 Rosana Berger NEGATIVE SPOTTER 350.1.13.10 ity of REGIONAL 4.2.7.2.686 Rolo as MATERNAL [id number] [facility] [address] [place] [address] 2020-10-12 2020-10-12 Initial [facility] 1.2.100.249 [id number] Univers 10:05:33 10:56:14 Rosana Berger NEGATIVE SPOTTER 350.1.13.10 ity of Visit [facility] 4.2.7.2.686 Rolo as MATERNAL [phone] [facility] & CHILD [address] [place] [address] 2020-10-12 2020-10-12 Outpatient R [facility] [id number] Univers 09:30:00 09:30:00 [id number] ity [facility] 2020-10-12 2020-10-12 Outpatient [facility] [id number] Univers 09:30:00 09:30:00 ROSANA jamil o f [facility] 2020-10-12 2020-10-12 Orders Doctor XIAO 1.2.840.114 [id number] Univers 00:00:00 00:00:00 Only Unassigned, BERTRAM 350.1.13.10 ity of [place] [facility] [id number] Rolo as [phone] [address] Results Test Description Test Time Test Comments Results Result Comments Source POCT URINALYSIS W SPECIFIC GRAVITY 2021-03-28 14:41:00 Test Item Value Reference Range Interpretation Comme nts POCT U SP GRAV (test code = 3255) . 1.005-1.025 POCT PH U (test code = 3254) . 5-8 POCT U LEUK EST (test code = 3263) . Negative - Negative POCT U NIT (test code = 3262) . Negative - Negative POCT U PROT (test code = 3259) . Negative - Negative POCT U GLU (test code = 3256) . Negative - Negative POCT U KETONE (test code = 3258) . Negative - Negative POCT U UROBILI (test code = 3260) . 0.2-1 POCT U BILI (test code = 3261) . Negative - Negative POCT U BLD (test code = 3257) . Negative - Negative POCT U COLOR (test code = 3266) POCT U APPEAR (test code = 3267) [facility] URINALYSIS W SPECIFIC [id number] 14:41:00 Test Item Value Reference Range Interpretation Comments POCT U SP GRAV (test code = 3255) . 1.005-1.025 POCT PH U (test code = 3254) . 5-8 POCT U LEUK EST (test code = 3263) . Negative - Negative POCT U NIT (test code = 3262) . Negative - Negative POCT U PROT (test code = 3259) . Negative - Negative POCT U GLU (test code = 3256) . Negative - Negative POCT U KETONE (test code = 3258) . Negative - Negative POCT U UROBILI (test code = 3260) . 0.2-1 POCT U BILI (test code = 3261) . Negative - Negative POCT U BLD (test code = 3257) . Negative - Negative POCT U COLOR (test code = 3266) POCT U APPEAR (test code = 3267) [facility] URINALYSIS W SPECIFIC [id number] 14:41:00 Test Item Value Reference Range Interpretation Comments POCT U SP GRAV (test code = 3255) . 1.005-1.025 POCT PH U (test code = 3254) . 5-8 POCT U LEUK EST (test code = 3263) . Negative - Negative POCT U NIT (test code = 3262) . Negative - Negative POCT U PROT (test code = 3259) . Negative - Negative POCT U GLU (test code = 3256) . Negative - Negative POCT U KETONE (test code = 3258) . Negative - Negative POCT U UROBILI (test code = 3260) . 0.2-1 POCT U BILI (test code = 3261) . Negative - Negative POCT U BLD (test code = 3257) . Negative - Negative POCT U COLOR (test code = 3266) POCT U APPEAR (test code = 3267) [facility] URINALYSIS W SPECIFIC [id number] 14:41:00 Test Item Value Reference Range Interpretation Comments POCT U SP GRAV (test code = 3255) . 1.005-1.025 POCT PH U (test code = 3254) . 5-8 POCT U LEUK EST (test code = 3263) . Negative - Negative POCT U NIT (test code = 3262) . Negative - Negative POCT U PROT (test code = 3259) . Negative - Negative POCT U GLU (test code = 3256) . Negative - Negative POCT U KETONE (test code = 3258) . Negative - Negative POCT U UROBILI (test code = 3260) . 0.2-1 POCT U BILI (test code = 3261) . Negative - Negative POCT U BLD (test code = 3257) . Negative - Negative POCT U COLOR (test code = 3266) POCT U APPEAR (test code = 3267) [facility] THIRD [id number] 11:50:00 Test Item Value Reference Range Interpretation Comments PLACENTA THIRD TRIMESTER (test code = PLACIII) RUN DATE: 03/10/21 [facility] PAGE 1 RUN TIME: 1835 Specimen Inquiry RUN USER: INTERFACE PATIENT: KRISTINA OLMEDO LOC: DAGOBERTO U #: [id number] AGE/SX: 25/F [facility] RE[facility]21REG DR: Teodoro Romo MD : 94 BED: A DIS: 03/07/21 STATUS: DIS IN TLOC: SPEC #: [id number] RECD: 03/07/21 STATUS: [place] TERRY #: [id number] MAGALY: 03/05/21- SUBM DR: Teodoro Romo MD ENTERED: 03/07/21 SP TYPE: PLACIII OTHR DR: ORDERED: LEVEL V SURGICA CODES: [id number] - PLACENTA, NOS PROCEDURES: LEVEL V SURGICA (Incomplete) TISSUES: PLACENTA, NOS - PLACENTA CLINICAL HISTORY 25 year old, 25.5 weeks, , vaginal delivery, PTL (wpd) FINAL DIAGNOSIS Placenta, lynn gestation (25.5 weeks): - early third trimester villous architecture - severe acute chorioamnionitis (Stage 2 - intermediate, Grade 2 - severe) - acute umbilical vasculitis (Stage 1 - early, Grade 1 - mild) - umbilical cord: insertion 3 cm from margin, 3-vessel, 10 cm length - placental weight: actual 205 gms/expected 197 gms CPT: 27158 [facility]/wpd GROSS DESCRIPTION The specimen was received in a container, labeled with the patient's name, unit number and designated "placenta" and consists of a single focally disrupted placental disk with attached membranes and umbilical cord. The following attributes are observed: Cord insertion: 3 cm from margin Cord length: 10 cm Number of vessels: 3 Cord color: Dubon-white Other cord findings: None surface findings: Blue-purple, wrinkled, glistening and focally disrupted Vasculature: Unremarkable vasculature Membranes rupture site: Undetermined Membrane color: Dubon-pink Other membrane findings: Focally opaque and disrupted CONTINUED ON NEXT PAGE RUN DATE: 03/10/21 [facility] PAGE 2 RUN TIME: 1834 Specimen Inquiry RUN USER: INTERFACE SPEC #: [id number] PATIENT: KRISTINA OLMEDO #[id number] (Continued) GROSS DESCRIPTION (Continued) The trimmed placental weight: 205 gm Disk measurement: 15 x 11 x 3 cm in greatest dimension Accessory lobes: None Maternal surface: Lobulated and focally disrupted, completeness cannot be determined Parenchyma: Red-brown and spongy Parenchyma lesions: None Cassettes: A1 through A4 sudha 03/07/21 Signed Ricco Harris 03/10/21 1150 END OF REPORT HGB [id number] 07:25:00 Test Item Value Reference Range Interpretation Comments HEMOGLOBIN (test code = HGB) 8.4 g/dL 10.1-13.8 L HEMATOCRIT (test code = HCT) 25.8 % 32.5-41.8 L HGB [id number] 10:47:00 Test Item Value Reference Range Interpretation Comments HEMOGLOBIN (test code = 7.7 g/dL 10.1-13.8 L Resu lts verified by HGB) repeat analysis HEMATOCRIT (test code = 22.8 % 32.5-41.8 L Resu lts verified by HCT) repeat analysis VENOUS BLOOD [id number] 21:53:00 Test Item Value Reference Range Interpretation Comments VENOUS BLOOD GAS PH 7.388 7.31-7.41 N (test code = PHV) VENOUS BLOOD GAS 33.6 mmHg PCO2 (test code = PCO2V) VENOUS BLOOD GAS 47.7 mmHg PO2 (test code = PO2V) VBG HCO3 (test code 19.8 meq/L = HCO3V) VBG BASE EXCESS -4.2 See_Comment L [Automated message] The (test code = CHRIS) system [employer] generated this result tra nsmitted reference range : -2.0 to +2.0. The refer ence range was not u sed to interpret this result as normal/abnormal . VENOUS BLOOD GAS OS 83.6 % SAT. (test code = O2SATV) VENOUS BLOOD GAS Venous TYPE (test code = TYPEV) VENOUS BLOOD GAS 21.0 % FIO2 (test code = FIO2V) VBG VENT MODE (test NIPPV code = MODEV) AG HEPATITIS B [id number] 04:37:00 Test Item Value Reference Range Interpretation Comments AG HEPATITIS B SURFACE (test code NONREACTIVE NONREACTIVE = HBSAG) IS CONSENT FORM SIGNED FOR HIV TESTING? YAB HEPATITIS C [id number] 04:37:00 Test Item Value Reference Range Interpretation Comments AB HEPATITIS C (test code = NONREACTIVE NONREACTIVE HCVAB) SIGNAL TO CUTOFF (test code = 0.04 <0.80 N CUTOFF) IS CONSENT FORM SIGNED FOR HIV TESTING? YAB [id number] 04:37:00 Test Item Value Reference Range Interpretation Comments AB TREPONEMA (test code = TREPAB) NONREACTIVE NONREACTIVE IS CONSENT FORM SIGNED FOR HIV TESTING? YAB HIV 1 04:37:00 Test Item Value Reference Range Interpretation Comments AB HIV 1 2 (test NONREACTIVE NONREACTIVE Done by Marcelo Cook code = [id number]) 4th Gen HIV Ag/Ab Combo Screen IS CONSENT FORM SIGNED FOR HIV TESTING? YAG HEPATITIS B [id number] 04:11:00 Test Item Value Reference Range Interpretation Comments AG HEPATITIS B SURFACE (test code NONREACTIVE NONREACTIVE = HBSAG) IS CONSENT FORM SIGNED FOR HIV TESTING? BECKYB HEPATITIS C [id number] 04:11:00 Test Item Value Reference Range Interpretation Comments AB HEPATITIS C (test code = HCVAB) NONREACTIVE SIGNAL TO CUTOFF (test code = CUTOFF) <0.80 IS CONSENT FORM SIGNED FOR HIV TESTING? YAB [id number] 04:11:00 Test Item Value Reference Range Interpretation Comments AB TREPONEMA (test code = TREPAB) NONREACTIVE NONREACTIVE IS CONSENT FORM SIGNED FOR HIV TESTING? YAB HIV 1 04:11:00 Test Item Value Reference Range Interpretation Comments AB HIV 1 2 (test code = [id number]) NONREACTIVE IS CONSENT FORM SIGNED FOR HIV TESTING? YCOVID-19 (ID NOW RAPID TESTING) 2021-03-05 02:25:44 Test Item Value Reference Range Interpretation Comments SARS-CoV-2 Rapid ID NOW Not Detected Not Detected (test code = 83184-8) RENETTA (test code = RENETTA) ID NOW COVID-19 Assay is an isothermal nucleic acid amplification test intended for the qualitative detection of nucleic acid from SARS-CoV-2 viral RNA in nasopharyngeal ([employer]) specimens. It is used under Emergency Use Authorization (EUA) by FDA. The limit of detection (LOD) of the assay is 125 Genome Equivalents/mL. A positive result is indicative of the presence of SARS-CoV-2 RNA. ?Clinical correlation with patient history and other diagnostic information is necessary to determine patient infection status. A negative (Not Detected) result does not preclude SARS-CoV-2 infection. In patients with clinical symptoms and other tests that are consistent with SARS-CoV-2 infection, negative results should be treated as presumptive negative and a new specimen should be tested with alternative PCR molecular test. Invalid: Please collect a new specimen for repeat patient testing if clinically indicated. Lab Interpretation Normal (test code = 10363-6) [facility] Test Item Value Reference Range Interpretation Comments APPEARANCE (test code = Clear Clear 8278860769) COLOR (test code = Straw Yellow A 3295827859) PH (test code = 4.8-8.0 1845919799) SP GRAVITY (test code = 1.003-1.030 4718456412) GLU U QUAL (test code = Normal Normal 7208738869) BLOOD (test code = Negative Negative 4784054221) KETONES (test code = Negative Negative 0273839761) PROTEIN (test code = Negative Negative 2887-8) UROBILIN (test code = Normal Normal 4652856601) BILIRUBIN (test code = Negative Negative 5029407857) NITRITE (test code = Negative Negative 4226451761) LEUK NAZ (test code = Negative Negative 0736551766) RBC/HPF (test code = See_Comment [Autom ated message] 1679435306) The system [employer] generated this result transmitted ref erence range: 0 - 3 HP F. The reference range was not used to int erpret this result as normal/abnormal . WBC/HPF (test code = <1 See_Comment [Autom ated message] 0823839458) The system [employer] generated this result transmitted ref erence range: 0 - 5 HP F. The reference range was not used to int erpret this result as normal/abnormal . BACTERIA (test code = Negative Negative 3730443909) SQ EPITH (test code = <1 HPF 9155469494) Lab Interpretation (test Abnormal code = 39586-7) [facility] [id number] 02:03:00 Test Item Value Reference Range Interpretation Comments SODIUM (test code = NA) 138 mEq/L 135-145 N POTASSIUM (test code = K) 4.3 mEq/L 3.5-5.0 N CHLORIDE (test code = CL) 106 mEq/L 100-115 N CARBON DIOXIDE (test code = CO2) 19 mEq/L 22-31 L ANION GAP (test code = GAP) 17.70 10-20 N GLUCOSE (test code = GLU) 157 mg/dL 65-110 H BLOOD UREA NITROGEN (test code = 5 mg/dL 7-18 L BUN) GLOMERULAR FILTRATION RATE (test 101 ml/min >60 N code = GFR) CREATININE (test code = CREAT) 0.7 mg/dL 0.5-1.0 N TOTAL PROTEIN (test code = PROT) 6.1 gm/dL 6.3-8.2 L ALBUMIN (test code = ALB) 2.5 gm/dL 3.4-4.8 L CALCIUM (test code = CA) 7.3 mg/dL 8.4-10.2 L BILIRUBIN TOTAL (test code = BILT) 0.1 mg/dL 0.2-1.0 L SGOT/AST (test code = AST) 19 units/L 15-37 N SGPT/ALT (test code = ALT) 19 units/L 12-78 N ALKALINE PHOSPHATASE TOTAL (test 75 units/L 46-116 N code = ALKP) US PELVIS > 14 [id number] 01:58:44 1. Single live intrauterine fetus of approximately 25 weeks 5 days.Cephalic presentation.2. Open internal os, with funneling of membranes into the cervical canal.3. Normal amniotic fluid volume. RL: 460 End of Report ORDERING PHYSICIAN:STEVIE BRODERICK History: weight and presentation Comparison: None available Technique: Obstetrical sonogram FINDINGS: There is a single live intrauterine in cephalic position with ananterior ?placenta. ?There is no evidence of previa. ?There is a normalamount of amniotic fluid. Amniotic fluid index is 12.67 cm. ?Limited fetalsurvey is unremarkable. ?There is heart rate of 156 beats/min. ?Theinternal os is open, with funneling of membranes into the cervical canal. The following biometric data was obtained: BPD 6.23 cm (25 weeks 2 days)HC 23.50 cm (25 weeks 4 days)OFD: 8.32 cm (25 weeks 6 days)AC ?21.75 cm (26 weeks 2 days)FL ?4.88 cm (26 weeks 3 days) Estimated weight 891 +/- 130 gGestational age by US: 25 weeks 5 days [facility], Radiant Results Inft User - 03/04/2021 8:59 PMCDT ORDERING PHYSICIAN: STEVIE DREW LAMHistory: weight and presentationComparison: None availableTechnique: Obstetrical sonogramFINDINGS:Th ere is a single live intrauterine in cephalic position with ananterior placenta. There is no evidence of previa. There is a normalamount of amniotic fluid. Amniotic fluid index is 12.67 cm. Limited fetalsurvey is unremarkable. There is heart rate of 156 beats/min. Theinternal os is open, with funneling of membranes into the cervical canal. The following biometric data was obtained:BPD 6.23 cm (25 weeks 2 days)HC 23.50 cm (25 weeks 4 days)OFD: 8.32 cm (25 weeks 6 days)AC 21.75 cm (26 weeks 2 days)FL 4.88 cm (26 weeks 3 days)Estimated weight 891 +/- 130 gGestational age by US: 25 weeks 5 daysIMPRESSION1. Single live intrauterine fetus of approximately 25 weeks 5 days.Cephalic presentation.2. Open internal os, with funneling of membranes into the cervical canal.3. Normal amniotic fluid volume.RL: 460End of Report Electronically signed by Srinivas Galvez MD at 18:58 PMUnMemorial Herm[facility] HospitalHIV 1/2 AG-AB WITH [id number] 01:50:24 Test Item Value Reference Range Interpretation Comments HIV Negative Negative Semi-quantitative (test code = 02873-6) RENETTA (test code = Non-reactive for HIV-1 RENETTA) antigen and HIV-1/HIV-2 antibodies. ?No laboratory evidence of HIV infection. ?Repeat in 2-4 weeks if acute HIV infection is suspected. [facility] [id number] 01:41:00 Test Item Value Reference Range Interpretation Comments UA COLOR (test code = STRAW YELLOW COLU) UA APPEARANCE (test CLEAR CLEAR code = APPU) UA GLUCOSE DIPSTICK 3+ NEGATIVE A (test code = DGLUU) UA BILIRUBIN DIPSTICK NEGATIVE NEGATIVE (test code = BILU) UA KETONE DIPSTICK NEGATIVE NEGATIVE (test code = KETU) UA SPECIFIC GRAVITY 1.020 1.001-1.035 N (test code = SGU) UA BLOOD DIPSTICK (test 1+ NEGATIVE A code = GARY) UA PH DIPSTICK (test 5.5 5-9 code = KARI) UA PROTEIN DIPSTICK NEGATIVE NEGATIVE (test code = PROU) UA UROBILINIOGEN 0.2 EU/dL See_Comment [Automated message] DIPSTICK (test code = The sy stem which URO) generated this result transmit kimber reference range : <=1.0. The refe rence range was not u sed to interpret th is result as normal/abnormal . UA NITRITE DIPSTICK NEGATIVE NEGATIVE (test code = BARB) UA LEUKOCYTE ESTERASE NEG NEGATIVE DIPSTICK (test code = LEUU) UA WBC (test code = 0-2 #/hpf NONE SEEN WBCU) UA RBC (test code = 3-5 #/hpf NONE SEEN A RBCU) UA EPITHELIAL CELLS RARE #/hpf NONE SEEN (test code = EPIU) URINE SAMPLE: URINE BAGCBC WITH [id number] 01:37:58 Test Item Value Reference Range Interpretation Comments WBC (test code = See_Comment H [Automated 4290-2) message] The system which generated this result transmit kimber reference range : 4.30 - 11.10 10*3/?L. The reference range was not used to interpret this result as normal/abnormal . RBC (test code = See_Comment L [Automated 669-8) message] The system which generated this result transmit kimber reference range : 3.93 - 5.25 10*6/?L. The reference range was not used to interpret this result as normal/abnormal . HGB (test code = 11.0 g/dL 11.6-15.0 L 718-7) HCT (test code = 31.8 % 35.7-45.2 L 4544-3) MCV (test code = 88.6 fL 80.6-95.5 787-2) MCH (test code = 30.6 pg 25.9-32.8 785-6) MCHC (test code = 34.6 g/dL 31.6-35.1 786-4) RDW-SD (test code = 37.1 fL 39.0-49.9 L 46031-2) RDW-CV (test code = 11.8 % 12.0-15.5 L 788-0) PLT (test code = See_Comment [Automated 777-3) message] The system which generated this result transmit kimber reference range : 166 - 358 10*3/ ?L. The reference range was not u sed to interpret th is result as normal/abnormal . MPV (test code = 10.6 fL 9.5-12.9 00796-0) NRBC/100 WBC (test See_Comment [Automat ed code = [id number]) message] The system which generated this result transmit kimber reference range : 0.0 - 10.0 /100 WBCs. The reference range was not used to interpret this result as normal/abnormal . NRBC x10^3 (test code <0.01 See_Comment [Auto mated = [id number]) message] The system which generated this result transmit kimber reference range : 10*3/?L. The reference range was not used to interpret this result as normal/abnormal . GRAN MAT (NEUT) % 80.6 % (test code = 770-8) IMM GRAN % (test code 3.60 % = 7162258770) LYMPH % (test code = 9.1 % 736-9) MONO % (test code = 5.7 % 5905-5) EOS % (test code = 0.6 % 713-8) BASO % (test code = 0.4 % 706-2) GRAN MAT x10^3(ANC) 13.76 10*3/uL 1.88-7.09 H (test code = 3552852808) IMM GRAN x10^3 (test 0.62 10*3/uL 0.00-0.06 H code = 6892017187) LYMPH x10^3 (test code 1.56 10*3/uL 1.32-3.29 = 731-0) MONO x10^3 (test code 0.97 10*3/uL 0.33-0.92 H = 742-7) EOS x10^3 (test code = 0.11 10*3/uL 0.03-0.39 711-2) BASO x10^3 (test code 0.06 10*3/uL 0.01-0.07 = 704-7) BANDS (test code = Increased A 7154588748) TOXIC CHANGES (test Present A code = 803-7) Lab Interpretation Abnormal (test code = 21857-7) [facility] W/AUTO [id number] 01:32:00 Test Item Value Reference Range Interpretation Comments WHITE BLOOD CELL (test code = WBC) 18.4 K/mm3 6.5-12.3 H RED BLOOD CELL (test code = RBC) 3.20 M/mm3 3.51-4.69 L HEMOGLOBIN (test code = HGB) 9.9 g/dL 10.1-13.8 L HEMATOCRIT (test code = HCT) 29.8 % 32.5-41.8 L MEAN CELL VOLUME (test code = MCV) 93.1 fL 84.6-96.6 N MEAN CELL HGB (test code = MCH) 30.9 pg 27.3-33.9 N MEAN CELL HGB CONCETRATION (test 33.2 gm/dL 32.0-34.2 N code = MCHC) RED CELL DISTRIBUTION WIDTH (test 11.9 % 12.2-16.3 L code = RDW) PLATELET COUNT (test code = PLT) 246 K/mm3 134-363 N MEAN PLATELET VOLUME (test code = 10.7 fL 9.2-12.7 N MPV) NEUTROPHIL % (test code = NT%) 88.5 % 57.9-77.3 H LYMPHOCYTE % (test code = LY%) 5.5 % 14.5-29.7 L MONOCYTE % (test code = MO%) 1.8 % 3.6-10.2 L EOSINOPHIL % (test code = EO%) 0.1 % 0.0-3.0 N BASOPHIL % (test code = BA%) 0.4 % 0.1-0.9 N NEUTROPHIL # (test code = NT#) 16.3 K/mm3 LYMPHOCYTE # (test code = LY#) 1.0 K/mm3 MONOCYTE # (test code = MO#) 0.3 K/mm3 EOSINOPHIL # (test code = EO#) 0.01 K/mm3 BASOPHIL # (test code = BA#) 0.1 K/mm3 RBC MORPHOLOGY REQUIRED (test code NORMAL NORMAL = RBCM) PLATELET MORPHOLOGY REQUIRED (test NORMAL NORMAL code = PLTMR) Type and Screen - ONCE [id number] 01:30:24 Test Item Value Reference Range Interpretation Comments ABO & RH (test code B Positive Performe d at [facility] = 20) Laboratory [facility] [address] [place] [address] Free: [phone] A No. [id number] IAT (test code = Negative Performed a t [facility] 1185) [facility] [address] [place] [address] Free: [phone] A No. [id number] [facility] URINALYSIS W SPECIFIC [id number] 15:45:00 Test Item Value Reference Range Interpretation Comments POCT U SP GRAV (test code = 3255) . 1.005-1.025 POCT PH U (test code = 3254) . 5-8 POCT U LEUK EST (test code = 3263) . Negative - Negative POCT U NIT (test code = 3262) . Negative - Negative POCT U PROT (test code = 3259) Trace Negative - Negative POCT U GLU (test code = 3256) Neg Negative - Negative POCT U KETONE (test code = 3258) . Negative - Negative POCT U UROBILI (test code = 3260) . 0.2-1 POCT U BILI (test code = 3261) . Negative - Negative POCT U BLD (test code = 3257) . Negative - Negative POCT U COLOR (test code = 3266) POCT U APPEAR (test code = 3267) [facility] URINALYSIS W SPECIFIC [id number] 15:42:00 Test Item Value Reference Range Interpretation Comments POCT U SP GRAV (test code = . 1.005-1.025 3255) POCT PH U (test code = 3254) . 5-8 POCT U LEUK EST (test code = . Negative - Negative 3263) POCT U NIT (test code = 3262) . Negative - Negative POCT U PROT (test code = 3259) trace Negative - Negative POCT U GLU (test code = 3256) negative Negative - Negative POCT U KETONE (test code = 3258) . Negative - Negative POCT U UROBILI (test code = . 0.2-1 3260) POCT U BILI (test code = 3261) . Negative - Negative POCT U BLD (test code = 3257) . Negative - Negative POCT U COLOR (test code = 3266) POCT U APPEAR (test code = 3267) [facility] URINALYSIS W SPECIFIC [id number] 18:24:00 Test Item Value Reference Range Interpretation Comments POCT U SP GRAV (test code = . 1.005-1.025 3255) POCT PH U (test code = 3254) . 5-8 POCT U LEUK EST (test code = . Negative - Negative 3263) POCT U NIT (test code = 3262) . Negative - Negative POCT U PROT (test code = 3259) TRACE Negative - Negative POCT U GLU (test code = 3256) NEGATIVE Negative - Negative POCT U KETONE (test code = 3258) . Negative - Negative POCT U UROBILI (test code = . 0.2-1 3260) POCT U BILI (test code = 3261) .. Negative - Negative POCT U BLD (test code = 3257) . Negative - Negative POCT U COLOR (test code = 3266) POCT U APPEAR (test code = 3267) [facility] URINALYSIS W SPECIFIC [id number] 18:24:00 Test Item Value Reference Range Interpretation Comments POCT U SP GRAV (test code = . 1.005-1.025 3255) POCT PH U (test code = 3254) . 5-8 POCT U LEUK EST (test code = . Negative - Negative 3263) POCT U NIT (test code = 3262) . Negative - Negative POCT U PROT (test code = 3259) TRACE Negative - Negative POCT U GLU (test code = 3256) NEGATIVE Negative - Negative POCT U KETONE (test code = 3258) . Negative - Negative POCT U UROBILI (test code = . 0.2-1 3260) POCT U BILI (test code = 3261) .. Negative - Negative POCT U BLD (test code = 3257) . Negative - Negative POCT U COLOR (test code = 3266) POCT U APPEAR (test code = 3267) [facility] URINALYSIS W SPECIFIC [id number] 18:30:00 Test Item Value Reference Range Interpretation Comments POCT U SP GRAV (test code = 3255) . 1.005-1.025 POCT PH U (test code = 3254) . 5-8 POCT U LEUK EST (test code = 3263) . Negative - Negative POCT U NIT (test code = 3262) . Negative - Negative POCT U PROT (test code = 3259) . Negative - Negative POCT U GLU (test code = 3256) . Negative - Negative POCT U KETONE (test code = 3258) . Negative - Negative POCT U UROBILI (test code = 3260) . 0.2-1 POCT U BILI (test code = 3261) . Negative - Negative POCT U BLD (test code = 3257) . Negative - Negative POCT U COLOR (test code = 3266) POCT U APPEAR (test code = 3267) [facility] URINALYSIS W SPECIFIC [id number] 14:47:00 Test Item Value Reference Range Interpretation Comments POCT U SP GRAV (test code = 3255) . 1.005-1.025 POCT PH U (test code = 3254) . 5-8 POCT U LEUK EST (test code = 3263) . Negative - Negative POCT U NIT (test code = 3262) . Negative - Negative POCT U PROT (test code = 3259) Trace Negative - Negative POCT U GLU (test code = 3256) Neg Negative - Negative POCT U KETONE (test code = 3258) . Negative - Negative POCT U UROBILI (test code = 3260) . 0.2-1 POCT U BILI (test code = 3261) . Negative - Negative POCT U BLD (test code = 3257) . Negative - Negative POCT U COLOR (test code = 3266) POCT U APPEAR (test code = 3267) [facility] URINALYSIS W SPECIFIC [id number] 20:12:00 Test Item Value Reference Range Interpretation Comments POCT U SP GRAV (test code = 3255) . 1.005-1.025 POCT PH U (test code = 3254) . 5-8 POCT U LEUK EST (test code = 3263) . Negative - Negative POCT U NIT (test code = 3262) . Negative - Negative POCT U PROT (test code = 3259) Trace Negative - Negative POCT U GLU (test code = 3256) Neg Negative - Negative POCT U KETONE (test code = 3258) . Negative - Negative POCT U UROBILI (test code = 3260) . 0.2-1 POCT U BILI (test code = 3261) . Negative - Negative POCT U BLD (test code = 3257) . Negative - Negative POCT U COLOR (test code = 3266) POCT U APPEAR (test code = 3267) [facility] URINALYSIS W SPECIFIC [id number] 20:12:00 Test Item Value Reference Range Interpretation Comments POCT U SP GRAV (test code = 3255) . 1.005-1.025 POCT PH U (test code = 3254) . 5-8 POCT U LEUK EST (test code = 3263) . Negative - Negative POCT U NIT (test code = 3262) . Negative - Negative POCT U PROT (test code = 3259) Trace Negative - Negative POCT U GLU (test code = 3256) Neg Negative - Negative POCT U KETONE (test code = 3258) . Negative - Negative POCT U UROBILI (test code = 3260) . 0.2-1 POCT U BILI (test code = 3261) . Negative - Negative POCT U BLD (test code = 3257) . Negative - Negative POCT U COLOR (test code = 3266) POCT U APPEAR (test code = 3267) [facility] URINALYSIS W SPECIFIC [id number] 20:27:00 Test Item Value Reference Range Interpretation Comments POCT U SP GRAV (test code = 3255) . 1.005-1.025 POCT PH U (test code = 3254) . 5-8 POCT U LEUK EST (test code = 3263) . Negative - Negative POCT U NIT (test code = 3262) . Negative - Negative POCT U PROT (test code = 3259) Trace Negative - Negative POCT U GLU (test code = 3256) Neg Negative - Negative POCT U KETONE (test code = 3258) . Negative - Negative POCT U UROBILI (test code = 3260) . 0.2-1 POCT U BILI (test code = 3261) . Negative - Negative POCT U BLD (test code = 3257) . Negative - Negative POCT U COLOR (test code = 3266) POCT U APPEAR (test code = 3267) [facility] URINALYSIS W SPECIFIC [id number] 20:27:00 Test Item Value Reference Range Interpretation Comments POCT U SP GRAV (test code = 3255) . 1.005-1.025 POCT PH U (test code = 3254) . 5-8 POCT U LEUK EST (test code = 3263) . Negative - Negative POCT U NIT (test code = 3262) . Negative - Negative POCT U PROT (test code = 3259) Trace Negative - Negative POCT U GLU (test code = 3256) Neg Negative - Negative POCT U KETONE (test code = 3258) . Negative - Negative POCT U UROBILI (test code = 3260) . 0.2-1 POCT U BILI (test code = 3261) . Negative - Negative POCT U BLD (test code = 3257) . Negative - Negative POCT U COLOR (test code = 3266) POCT U APPEAR (test code = 3267) [facility] [id number] 16:11:00 Test Item Value Reference Range Interpretation Comments POCT PREG (test code = 1605) Positive On board controls acceptable with C Yes Line (test code = 3574) POCT PREG LOT # (test code = 3575) POCT PREG TEST DATE (test code = 3576) [facility] URINALYSIS W/O SPECIFIC [id number] 16:11:00 Test Item Value Reference Range Interpretation Comments POCT PH U (test code = 3254) 6 mg/dl 5-8 POCT U LEUK EST (test code = 2+ Negative - Negative 3263) POCT U NIT (test code = 3262) Neg Negative - Negative POCT U PROT (test code = 3259) Trace Negative - Negative POCT U GLU (test code = 3256) Neg Negative - Negative POCT U KETONE (test code = 3258) None Negative - Negative POCT U BLD (test code = 3257) Trace Negative - Negative [id number] 16:11:00 Test Item Value Reference Range Interpretation Comments POCT PREG (test code = 1605) Positive On board controls acceptable with C Yes Line (test code = 3574) POCT PREG LOT # (test code = 3575) POCT PREG TEST DATE (test code = 3576) [facility]/O SPECIFIC [id number] 16:11:00 Test Item Value Reference Range Interpretation Comments POCT PH U (test code = 3254) 6 mg/dl 5-8 POCT U LEUK EST (test code = 2+ Negative - Negative 3) POCT U NIT (test code = 3262) Neg Negative - Negative POCT U PROT (test code = 3259) Trace Negative - Negative POCT U GLU (test code = 3256) Neg Negative - Negative POCT U KETONE (test code = 3258) None Negative - Negative POCT U BLD (test code = 3257) Trace Negative - Negative [facility]
[2022-01-12 21:43] LABS: Urine Blood Negative (Negative); Urine Glucose Trace (Negative); Urine Protein Negative (Negative); Urine Specific Gravity 1.025 (1.005-1.030); Urine pH 6.5 (5.0-7.0)
[2022-01-12 21:48] LABS: Absolute Lymphocytes (CBC) 0.8 K/uL (0.7-4.9); Hematocrit 34.7 % (36.0-45.0); Lymphocytes % 10.7 % (15.3-44.8); RBC Red Blood Cell Count 4.37 M/uL (3.86-4.86)
--- NOTE | 2022-01-12 21:53 | RAD REPORT ---
EXAM DESCRIPTION: CT - Head Brain Wo Cont - 01/12/2022 9:39 pm CLINICAL HISTORY: Numbness COMPARISON: 2016 TECHNIQUE: Computed axial tomography of the head was obtained. IV contrast was not requested. All CT scans are performed using dose optimization technique as appropriate and may include automated exposure control or mA/KV adjustment according to patient size. FINDINGS: An intracranial bleed is not seen . The ventricles are normal in caliber. No significant hypodense areas within the brain No extra-axial fluid collection is noted. Fluid within the sinuses/ mastoids is not seen. IMPRESSION: No acute intracranial abnormality is seen. If patient's symptoms persist MRI of the bra in would be recommended.
[2022-01-12 22:11] LABS: BUN Blood Urea Nitrogen 11 mg/dL (7-18); Bicarbonate 23 mmol/L (21-32); Glucose Level 144 mg/dL (74-106); Magnesium 2.3 mg/dL (1.8-2.4); Sodium Level 138 mmol/L (136-145); Thyroid Stimulating Hormone 0.346 uIU/mL (0.360-3.740)
[2022-01-12 22:15] LABS: Urine Specific Gravity/Preg 1.025 (1.005-1.030)
--- NOTE | 2022-01-12 22:23 | ER ---
Nurse's Notes [facility] Name: Chantelle Wells Age: 26 yrs Sex: Female : 1995 Arrival Date: 01/12/2022 Time: 21:05 Bed 19 Private MD: Diagnosis: Paresthesia of skin Presentation: 01/12 21:08 Chief complaint: Patient states: "At 7pm I noticed my fingers and legs were tingling ab2 and now they're numb. When I walk I feel dizzy." Pt denies a headache. Pt c/o dizziness and numbness/ tingling to all extremities. Pt denies weakness. Coronavirus screen: Vaccine status: Patient reports being unvaccinated. Client denies travel out of the [place] in the last 14 days. At this time, the client does not indicate any symptoms associated with coronavirus-19. Ebola Screen: Patient negative for fever greater than or equal to 101.5 degrees Fahrenheit, and additional compatible Ebola Virus Disease symptoms Patient denies exposure to infectious person. Patient denies travel to an Ebola-affected area in the 21 days before illness onset. No symptoms or risks identified at this time. Initial Sepsis Screen: Does the patient meet any 2 criteria? No. Patient's initial sepsis screen is negative. Does the patient have a suspected source of infection? No. Patient's initial sepsis screen is negative. Risk Assessment: Do you want to hurt yourself or someone else? Patient reports no desire to harm self or others. Onset of symptoms is unknown. 21:08 Method Of Arrival: Ambulatory ab2 21:08 Acuity: DEMETRIO 3 ab2 Triage Assessment: 21:10 General: Appears in no apparent distress. uncomfortable, Behavior is calm, cooperative, ab2 appropriate for age. Pain: Denies pain. Neuro: Level of Consciousness is awake, alert, obeys commands, Oriented to person, place, time, situation, Appropriate for age Child Care Cook are equal bilaterally Moves all extremities. Gait is steady, Speech is normal, Facial symmetry appears normal, Intact Reports numbness weakness Denies headache. Cardiovascular: Reports lightheadedness. Respiratory: Airway is patent Respiratory effort is even, unlabored, Respiratory pattern is regular, symmetrical. Historical: - Allergies: 21:10 No Known Allergies; ab2 - Home Meds: 21:49 Vitamin Oral [Active]; kd3 - PMHx: 21:10 None; ab2 - Immunization history:: Adult Immunizations up to date. - Social history:: Smoking status: Patient denies any tobacco usage or history of. - Family history:: not pertinent. - Hospitalizations: : No recent hospitalization is reported. Screenin:49 Abuse screen: Denies threats or abuse. Denies injuries from another. Nutritional kd3 screening: No deficits noted. Tuberculosis screening: No symptoms or risk factors identified. Fall Risk None identified. Assessment: 21:48 General: Appears in no apparent distress. Behavior is calm, cooperative. Neuro: Level kd3 of Consciousness is awake, alert, obeys commands, Oriented to person, place, time, situation. Cardiovascular: Patient's skin is warm and dry. Respiratory: Airway is patent Trachea midline Respiratory effort is even, unlabored, Respiratory pattern is regular, symmetrical. Vital Signs: 21:11 BP 130 / 76; Pulse 83; Resp 17; Temp 98.1; Pulse Ox 100% ; Weight 70.31 kg; Height 5 ab2 ft. 0 in. (152.40 cm); Pain 0/10; 21:48 BP 117 / 76; Pulse 80; Resp 16; Temp 98.2; Pulse Ox 100% on R/A; kd3 22:49 BP 122 / 72; Pulse 75; Resp 16; Pulse Ox 98% on R/A; kd3 21:11 Body Mass Index 30.27 (70.31 kg, 152.40 cm) ab2 ED Course: 21:05 Patient arrived in ED. ja2 21:09 Yared Cho MD is Attending Physician. rn 21:10 Triage completed. ab2 21:11 Arm band placed on right wrist. ab2 21:31 Prachi Lima RN is Primary Nurse. kd3 21:36 TSH Sent. kd3 21:36 Basic Metabolic Panel Sent. kd3 21:40 CT Head Brain wo Cont In Process Unspecified. EDMS 21:49 Patient has correct armband on for positive identification. Bed in low position. Call kd3 light in reach. Administered Medications: No medications were administered Outcome: 22:23 Discharge ordered by . rn 22:49 Patient left the ED. kd3 Signatures: Dispatcher [employer] EDMS Yared Cho MD MD rn Alexander, Jessica ja2 Doucette, Prachi, RN RN kd3 Moses Ocampo2
--- NOTE | 2022-01-12 22:24 | EDPHYS ---
Physician Documentation [facility] Name: Chantelle Wells Age: 26 yrs Sex: Female : 1995 Arrival Date: 01/12/2022 Time: 21:05 Bed 19 Private MD: ED Physician Yared Cho HPI: 01/12 22:18 This 26 yrs old Female presents to ER via Ambulatory with complaints of rn numbness of entire body. 22:19 The patient presents to the emergency department with paresthesias of the entire body, rn generalized paresthesias, that is mild. Onset: The symptoms/episode began/occurred 2 hour(s) ago. Context: occurred at a restaurant, occurred while the patient was at rest. Associated signs and symptoms: Pertinent positives: paresthesias, Pertinent negatives: altered mental status, chills, dizziness, fever, headache, nausea, neck stiffness, seizure, syncope, near-syncope, blurred vision, double vision, visual field changes, loss of vision, weakness. Severity of symptoms: At their worst the symptoms were very mild in the emergency department the symptoms are unchanged. Current symptoms:. The patient has not experienced similar symptoms in the past. The patient has not recently seen a physician. Patient reports whole body including face/both arms/both legs feel numb. Began 2 hours ago while at rest. No medications. No supplements. No fever. NO headache. No hx of neurological problems, no family hx of neurological problems. Otherwise feels ok, has never happened so came in for evaluation.. Historical: - Allergies: 21:10 No Known Allergies; ab2 - Home Meds: 21:49 Vitamin Oral [Active]; kd3 - PMHx: 21:10 None; ab2 - Immunization history:: Adult Immunizations up to date. - Social history:: Smoking status: Patient denies any tobacco usage or history of. - Family history:: not pertinent. - Hospitalizations: : No recent hospitalization is reported. ROS: 22:19 Constitutional: Negative for fever, chills, and weight loss, Eyes: Negative for injury, rn pain, redness, and discharge, ENT: Negative for injury, pain, and discharge, Neck: Negative for injury, pain, and swelling, Cardiovascular: Negative for chest pain, palpitations, and edema, Respiratory: Negative for shortness of breath, cough, wheezing, and pleuritic chest pain, Abdomen/GI: Negative for abdominal pain, nausea, vomiting, diarrhea, and constipation, Back: Negative for injury and pain, : Negative for injury, bleeding, discharge, and swelling, MS/Extremity: Negative for injury and deformity, Skin: Negative for injury, rash, and discoloration, Neuro: Negative for headache, weakness, and seizure. Exam: 22:19 Constitutional: This is a well developed, well nourished patient who is awake, alert, rn and in no acute distress. Head/Face: Normocephalic, atraumatic. Eyes: Pupils equal round and reactive to light, extra-ocular motions intact. Lids and lashes normal. Conjunctiva and sclera are non-icteric and not injected. Cornea within normal limits. Periorbital areas with no swelling, redness, or edema. Neck: Trachea midline, no thyromegaly or masses palpated, and no cervical lymphadenopathy. Supple, full range of motion without nuchal rigidity, or vertebral point tenderness. No Meningismus. Cardiovascular: Regular rate and rhythm. No pulse deficits. Respiratory: No increased work of breathing, no retractions or nasal flaring. Abdomen/GI: Soft, non-tender Skin: Warm, dry with normal turgor. Normal color with no rashes, no lesions, and no evidence of cellulitis. MS/ Extremity: Pulses equal, no cyanosis. Neurovascular intact. Full, normal range of motion. Equal circumference. Neuro: Awake and alert, GCS 15, oriented to person, place, time, and situation. Cranial nerves II-XII grossly intact. Motor strength 5/5 in all extremities. Sensory grossly intact. Cerebellar exam normal. Normal gait. Vital Signs: 21:11 BP 130 / 76; Pulse 83; Resp 17; Temp 98.1; Pulse Ox 100% ; Weight 70.31 kg; Height 5 ab2 ft. 0 in. (152.40 cm); Pain 0/10; 21:48 BP 117 / 76; Pulse 80; Resp 16; Temp 98.2; Pulse Ox 100% on R/A; kd3 22:49 BP 122 / 72; Pulse 75; Resp 16; Pulse Ox 98% on R/A; kd3 21:11 Body Mass Index 30.27 (70.31 kg, 152.40 cm) ab2 MDM: 21:09 Patient medically screened. rn 22:19 Data reviewed: vital signs, nurses notes, lab test result(s), radiologic studies, CT rn scan, and as a result, I will discharge patient. 22:22 Counseling: I had a detailed discussion with the patient and/or guardian regarding: the rn historical points, exam findings, and any diagnostic results supporting the discharge/admit diagnosis, lab results, radiology results, the need for outpatient follow up, to return to the emergency department if symptoms worsen or persist or if there are any questions or concerns that arise at home. Special discussion: I discussed with the patient/guardian in detail that at this point there is no indication for admission to the hospital. It is understood, however, that if the symptoms persist or worsen the patient needs to return immediately for re-evaluation. Based on the history and exam findings, there is no indication for further emergent testing or inpatient evaluation. I discussed with the patient/guardian the need to see the neurologist for further evaluation of the symptoms. I discussed with the patient/guardian the need to see the primary care provider for further evaluation of the symptoms. 01/12 21:19 Order name: CBC with Diff; Complete Time: 22:10 rn 01/12 21:19 Order name: Basic Metabolic Panel; Complete Time: 22:18 rn 01/12 21:19 Order name: TSH; Complete Time: 22:18 rn 01/12 21:19 Order name: T4 Free; Complete Time: 22:18 rn 01/12 21:19 Order name: Magnesium; Complete Time: 22:18 rn 01/12 21:43 Order name: Urine Dipstick-Ancillary; Complete Time: 22:10 EDMS 01/12 21:19 Order name: CT Head Brain wo Cont; Complete Time: 22:10 rn 01/12 21:19 Order name: IV Start; Complete Time: 21:36 rn 01/12 21:19 Order name: Urine Dipstick-Ancillary (obtain specimen); Complete Time: 21:36 rn 01/12 21:19 Order name: Urine Test (obtain specimen); Complete Time: 21:43 rn 01/12 21:44 Order name: Urine --Ancillary (enter results); Complete Time: 22:18 ds4 Administered Medications: No medications were administered Disposition Summary: 01/12/22 22:23 Discharge Ordered Location: Home rn Problem: new rn Symptoms: have improved rn Condition: Stable rn Diagnosis - Paresthesia of skin rn Followup: rn - With: Private Physician - When: As needed - Reason: Recheck today's complaints, Re-evaluation by your physician Discharge Instructions: - Discharge Summary Sheet rn - Paresthesia rn Forms: - Medication Reconciliation Form rn - Thank You Letter rn - Antibiotic ldr rn - Prescription Opioid Use rn Signatures: Dispatcher [employer] Yared Suazo MD MD rn Doucette, Kyli RN RN [facility] Moses Ocampo
[2022-01-12 22:59] VITALS: TEMP 98.2
[2022-01-12 23:01] VITALS: BP 122/72; O2SAT 98
== END 2022-01-12 22:49 | disposition home or self-care (01) ==
LOC: ER 21:02
DX: R20.2 Paresthesia of skin (principal)
CPT/HCPCS: 36415; 70450; 80048; 81003; 81025; 83735; 84439; 84443; 85025; 99283

== ENCOUNTER 2022-03-13 22:00 | Emergency (ER) | payer SELFPAY ==
--- OUTSIDE RECORDS SUMMARY | 2022-03-13 22:28 | XMS REPORT | Continuity of Care Document ---
:1995 Author Organization [facility] t Address [address] [place] [address] Care Team Providers Name Role Phone ROSANA JENSEN Primary Care Physician Unavailable Florian JOE R Attending Clinician Gibran Romo Attending Clinician Unavailable Celine Cheney Attending Clinician Gibran Romo Admitting Clinician Unavailable Payers Payer Name Policy Type Policy Number Effective Date Expiration Date Marcelo HAYES MOM CHIP [id number] 2022 00:00:00 [employer]OW [employer] Problems Condition Condition Condition Status Onset Resolution Last Treating Co mments Source Name Details Category Date Date Treatment Clinician Date 17 weeks 17 weeks Disease Active Unive rs gestation gestation 6-13 ity of of of 00:00: [place] 00 [facility] Branch Maternal Maternal Disease Active Overview: Un marin varicella, varicella, 5-25 Formattin ity of non-immune non-immune 00:00: g of this [place] 00 note Medical might be Branch different from the original. Address in PP H/O H/O Disease Active Univers abdominopl abdominopl 5-24 it y of asty asty 00:00: [place] [address] Medical Branch Multiparit Multiparit Disease Active U nivers y y 5-24 ity of 00:00: [place] [facility] History of History of Disease Active U nivers 5-24 ity of delivery delivery 00:00: [place] [facility] Other Other Disease Active Univers general general 7-26 it[place] of counseling [place] and advice 00 Me dical for for Branch contracept contracept akhil akhil management management BMI BMI Disease Active Univers 35.0-35.9, 35.0-35.9, 6-11 it y of adult adult 00:00: [place] 00 [facility] Branch Susceptibl Susceptibl Disease Active Overview : Univers e to e to -20 Formattin ity of varicella varicella 00:00: [place] (non-immun (non-immun 00 note Me dical e), e), might be Branch currently currently different from the original. Address pp Rubella Rubella Disease Active Overview: Univ ers non-immune non-immune 1-20 Formattin ity of status, status, 00:00: g of this [place] antepartum antepartum 00 note Me dical might be Branch different from the original. Address pp History of History of Disease Active U nivers 1-19 ity of delivery, delivery, 00:00: [place] currently currently 00 Medi yoni Branch in second in second trimester trimester Lump of Lump of Disease Active Univers right right 5-03 ity of breast breast 00:00: [place] [facility] Allergies, Adverse Reactions, Alerts Allergy Allergy Status Severity Reaction(s) Onset Inactive Treating Comm ents Source Name Type Date Date Clinician No Known DA Active U [facility] No Known DA Active U [facility]12 [facility] 00:00: [facility] 00 l [facility] NO KNOWN Drug Active Univers ALLERGIE Class ity of S [facility] Social History Social Habit Start Date Stop Date Quantity Comments Source ASSERTION 2021-11-21 [facility] 00:00:00 Medical Branch Exposure to 2022-02-24 2022-03-06 Not sure [facility] SARS-CoV-2 (event) 00:00:00 09:41:00 Medica l Branch Alcohol intake 2022-03-06 2022-03-06 0 /d [facility] 00:00:00 00:00:[address] [facility] Sex Assigned At [birth year] [facility] [place] 00:00:00 00:00:00 [facility] Branch Smoking Status Start Date Stop Date Source Never smoker [facility] Medications Ordered Filled Start Stop Current Ordering Indication Dosage Frequency Signature Comments Components Source Medication Medication Date Date Medication? Clinician (SIG) Name Name Yes [id number] 1{packe Take 1 Univers vit 6-13 t} Packet by ity of 33-iron-fol 00:00: mouth [place] ic-dha 00 daily. Medical (SELECT-OB Branch + DHA) 29 mg iron-1 mg -250 mg combo pack PNV 67-iron Yes [id number] 1{each} Take 1 Univers ps-folate 2-22 Each by ity of no.1-dha 00:00: mouth [place] (VITAFOL 00 daily. Medical ULTRA) 29 Branch mg iron- 1 mg-200 mg Cap Immunizations Ordered Filled Immunization Date Status Comments Alen e Immunization Name Name Influenza Virus 2020-10-12 Completed [facility] y of Vaccine Quad .5 mL 00:00:00 [facility] 6+ MO Branch HPV9 2017-04-24 Completed [facility] 00:00:00 [facility] Td 2008-05-06 Completed [facility] 00:00:00 [facility] Procedures Procedure Date / Time Performed Performing Clinician Alen stanley [id number] 2021-03-05 00:00:00 [facility] [id number] 2021-03-05 00:00:00 [facility] Encounters Start End Encounter Admission Attending Care Care Encounter Source Date/Time Date/Time Type Type Clinicians Facility Department ID 2022-03-30 2022-03-30 Outpatient R [facility] [id number] Univers 13:30:00 13:30:00 [id number] ity [facility] 2022-03-30 2022-03-30 Outpatient P [facility] [id number] Univers 13:30:00 13:30:00 ity [facility] 2022-03-06 2022-03-06 [facility] [id number] Univers 00:00:00 00:00:00 Driss Loaiza [employer]AKFAST SUPERVISOR [id number] ity of [facility] [id number] Rolo as MATERNAL [id number] Med ical & CHILD [address] [place] [address] 2021-03-05 2021-03-07 Inpatient BROOKE Romo, [facility] OB [id number] [facility] 00:01:00 18:46:00 [facility] [id number] [facility] 2020-12-13 2020-12-13 [facility]ine [facility], [facility] [id number] 08:40:34 09:52:59 Rosana Berger BREAKFAST SUPERVISOR [id number] Visit REGIONAL [id number] MATERNAL [id number] & CHILD [address] [place] [address] 2020-11-22 2020-11-22 Telephone Kulwinderyakelin, [facility] [id number] 00:00:00 00:00:00 Rosana Berger BREAKFAST SUPERVISOR [id number] REGIONAL [id number] MATERNAL [id number] & CHILD [address] [place] [address] Results Test Description Test Time Test Comments Results Result Comments Source PLACENTA THIRD TRIMESTER 2021-03-10 11:50:00 Test Item Value Reference Range Interpretation Comme nts PLACENTA RUN DATE: THIRD 03/10/21 [facility] PAGE 1 RUN TIME: 1835 TRIMESTER Specimen Inquiry RUN USER: INTERFACE (test code = PLACIII) PATIENT: KRISTINA OLMEDO LOC: DAGOBERTO U #: [id number] AGE/SX: 25/ F ROOM: [facility] RE03/05/21REG DR: Teodoro Romo MD : 94 BED: A DIS: 03/07/21 STATUS: DIS IN TLOC: SPEC #: [id number] RECD: STATUS: [place] RE #: [id number] MAGALY: 03/05/21- SUBM DR: Teodoro Romo MD ENTERED: 03/07/21 SP TYPE: PLACIII OTHR DR: ORDERED: LEVEL V SURGICA CODES: TG1105 - PLACENTA, NOS PROCEDURES: LEVEL V SURGICA (Incomplete) TISSUES: PLACENTA, NOS - PLACENTA CLINICAL HISTORY 25 year old, 25.5 weeks, , vaginal deliver y, PTL (wpd) FINAL DIAGNOSIS Placenta, lynn gestation (25.5 weeks): - early third trimester villous architecture - severe acute chorioamnionitis (Stage 2 - intermediate, Gra de 2 - severe) - acute umbilical vasculitis (Stage 1 - early, Grade 1 - mild) - umbilical c ord: insertion 3 cm from margin, 3-vessel, 10 cm length - placental weight: actual 205 gms/expe cted 197 gms CPT: 41310 cds/wpd GROSS DESCRIPTION The specimen was received in a c ontainer, labeled with the patient's name, unit number and designated "placenta" and consists of a single focally disrupted placental disk with attached membranes and umbilical cord. The followi ng attributes are observed: Cord insertion: 3 cm from margin Cord length: 10 cm Number of vessels: 3 Cord color: Dubon-white Other cord findings: None surface findings: Blue-purple, wrinkled, glistening and focally disrupted Vasculature: Unremarkable vasculature Membranes rupture site: Undetermined Membrane color: Dubon-pink Other membrane findings: Focally opaque and disrupted CONTINUED ON NEXT PAGE RUN DATE: 03/10/21 [facility] PAGE 2 RUN TIME: 5 Specimen Inquiry RUN USER: INTERFACE SPEC #: [id number] PATIENT: KRISTINA OLMEDO #[id number] (Continued) GROSS DESCRIPTION (Continued) The trimmed placental weight: 205 gm Disk measurement: 15 x 11 x 3 cm in greatest dimension Accessory lobes: None Maternal surface: Lobulated and focally disrupted, completeness cannot b e determined Parenchyma: Red-brown and spongy Parenchyma lesions: None Cassettes: A1 through A4 domingo/elizabeth 03/07/21 Signed Ricco Harris Rafi 03/10/21 1150 END OF REPORT HGB [id number] 07:25:00 Test Item Value Reference Range Interpretation Comments HEMOGLOBIN (test code = HGB) 8.4 g/dL 10.1-13.8 L HEMATOCRIT (test code = HCT) 25.8 % 32.5-41.8 L HGB [id number] 10:47:00 Test Item Value Reference Range Interpretation Comments HEMOGLOBIN (test code = 7.7 g/dL 10.1-13.8 L Resu lts verified by HGB) repeat analysis HEMATOCRIT (test code = 22.8 % 32.5-41.8 L Resu lts verified by HCT) repeat analysis VENOUS BLOOD [id number] 21:53:00 Test Item Value Reference Range Interpretation Comments VENOUS BLOOD GAS PH 7.388 7.31-7.41 N (test code = PHV) VENOUS BLOOD GAS 33.6 mmHg PCO2 (test code = PCO2V) VENOUS BLOOD GAS 47.7 mmHg PO2 (test code = PO2V) VBG HCO3 (test code 19.8 meq/L = HCO3V) VBG BASE EXCESS -4.2 See_Comment L [Automated message] The (test code = CHRIS) system [facility] generated this result tra nsmitted reference range [...] NIPPV code = MODEV) AG HEPATITIS B [id number] 04:37:00 Test Item Value Reference Range Interpretation Comments AG HEPATITIS B SURFACE (test code NONREACTIVE NONREACTIVE = HBSAG) IS CONSENT FORM SIGNED FOR HIV TESTING? YAB HEPATITIS C [id number] 04:37:00 Test Item Value Reference Range Interpretation Comments AB HEPATITIS C (test code = NONREACTIVE NONREACTIVE HCVAB) SIGNAL TO CUTOFF (test code = 0.04 <0.80 N CUTOFF) IS CONSENT FORM SIGNED FOR HIV TESTING? YAB [id number] 04:37:00 Test Item Value Reference Range Interpretation Comments AB TREPONEMA (test code = TREPAB) NONREACTIVE NONREACTIVE IS CONSENT FORM SIGNED FOR HIV TESTING? YAB HIV 1 04:37:00 Test Item Value Reference Range Interpretation Comments AB HIV 1 2 (test NONREACTIVE NONREACTIVE Done by Marcelo [facility] code = [id number]) 4th Gen HIV Ag/Ab Combo Screen IS CONSENT FORM SIGNED FOR HIV TESTING? YAG HEPATITIS B [id number] 04:11:00 Test Item Value Reference Range Interpretation Comments AG HEPATITIS B SURFACE (test code NONREACTIVE NONREACTIVE = HBSAG) IS CONSENT FORM SIGNED FOR HIV TESTING? YAB HEPATITIS C [id number] 04:11:00 Test Item Value Reference Range Interpretation Comments AB HEPATITIS C (test code = HCVAB) NONREACTIVE SIGNAL TO CUTOFF (test code = CUTOFF) <0.80 IS CONSENT FORM SIGNED FOR HIV TESTING? YAB [id number] 04:11:00 Test Item Value Reference Range Interpretation Comments AB TREPONEMA (test code = TREPAB) NONREACTIVE NONREACTIVE IS CONSENT FORM SIGNED FOR HIV TESTING? YAB HIV 1 04:11:00 Test Item Value Reference Range Interpretation Comments AB HIV 1 2 (test code = [id number]) NONREACTIVE IS CONSENT FORM SIGNED FOR HIV TESTING? YCOMPREHENSIVE METABOLIC [id number] 02:03:00 Test Item Value Reference Range Interpretation [...] 75 units/L 46-116 N code = ALKP) URINALYSIS [id number] 01:41:00 Test Item Value Reference Range Interpretation [...] code = EPIU) URINE SAMPLE: URINE BAGCBC W/AUTO [id number] 01:32:00 Test Item Value Reference Range Interpretation [...]
== END 2022-03-13 22:31 | disposition left against medical advice (07) ==
LOC: ER 22:00
DX: Z02.9 Encounter for administrative examinations, unspecified (principal)

== ENCOUNTER 2024-10-16 19:33 | Emergency (ER) | payer SELFPAY ==
--- OUTSIDE RECORDS SUMMARY | 2024-10-16 19:40 | XMS REPORT | Continuity of Care Document ---
Author Name Unknown Address [address] [facility] [address]. [address] [place] [address] [facility] thconnect Address [address] [facility]. [address] [place] [address] Care Team Providers Care Composition Weatherboard Applier Name Role Phone Mary Cheney Primary Care Physicia n MARY PAK Attending Clinician Unavail able MARIBEL ERNST Attending Clinician Unavaila ble Mary Cheney Attending Clinician + Maribel Ernst CNM Attending Clinician [phone] AISHA NARANJO Attending Clinician Unavailable Mary Cheney Attending Clinician + Nurse, Darrell Rmchp Rgv [facility] Obgyn Attending Clini saji Unavailable Maribel Ernst CNM Attending Clinician [phone] Abdifatah Hough Attending Clinician [phone] ABDIFATAH JAIMES Attending Clinician Unavailable PIOTR WINKLER Attending Clinician Unavailable Piotr Winkler DO Attending Clinician [phone] Doctor Unassigned, [place] Attending Clinician U vadim DOCKERYIS, TY Attending Clinician Unav ailable Morris Short MD, Ty Attending Clinician + Enio Uribe MD, Aaron Attending Clinician [phone] Yossi Gong Attending Clinician XIAO ORTEGA Attending Clinician Unavailable JIA KOHLER Attending Clinician Unavailable Jia Kohler MD Attending Clinician [phone] Provider, [facility] Temp Attending Clinician Chloé vailable Visit, [facility] Nurse Attending Clinician Unava ilable DRISS SAEZ Attending Clinician Unavailab gladis Saez LOT ATTENDANT, Driss Loaiza Attending Clinician [phone] ESTEFANY BLACKMAN Attending Clinician Unav ailable Ultrasound, [facility] Attending Clinician Unavailreggie Blackman MD, Estefany Garcia Attending Clinician + Bebo Booker MD Attending Clinician [phone] Moustapha Powers DO Attending Clinician [phone] BEBO BOOKER Attending Clinician Unavailable BEBO BOOKER Attending Clinician Unavailable JESUSITA HARTLEY Attending Clinician Unavailab Jesusita Duron DO Attending Clinician + [phone] CAT HARTLEY Attending Clinician Unavailabl e 1, [facility] Us Room Attending Clinician Unavailab Cat Wills Attending Clinician [phone] Abhilash POLLOCK Attending Clinician Unavailable Abhilash Queen Attending Clinician [phone] Faculty, Darrell Saldañakristal [facility] Attending Clinician Unava ilable Teodoro Romo Attending Clinician UnavailStevie Chaidez MD Attending Clinician [phone] STEVIE BRODERICK Attending Clinician Unavailable Maricel Poe MD Attending Clinician [phone] Sharath Sarmiento MD Attending Clinician [phone] [facility] Attending Clinician Unavailable STEVIE BRODERICK Admitting Clinician Unavailable PIOTR WINKLER Admitting Clinician Unavailable TY IQBAL Admitting Clinician Unav ailable Morris Short MD, Ty Admitting Clinician + JIA KOHLER Admitting Clinician Unavailable Jia Kohler MD Admitting Clinician [phone] Abhilash POLLOCK Admitting Clinician Unavailable Zane Romozimitchell Leary Admitting Clinician Unavailreggie Broderick MD, Stevie Mera Admitting Clinician [phone] Payers Payer Name Policy Type Policy Number Effective Date Expirati on Date Source [employer] [id number] 2020 00:00:00 [employer] PENDING PENDING 2024 00:00:00 TMHP [id number] EMERGENCY MEDICAID [id number] 2022 00:00:00 2022 00:00:00 Problems Condition Name Condition Details Condition Category Status Onset Date Resolution Date Last Treatment Date Treating Clinician Comments Source Flu vaccine refused Flu vaccine refused Disease Active 2023-09 00:00: 00 [facility] Elevated blood pressure reading without diagnosis of hypertensi on Elevated blood pressure reading without diagnosis of hypertensi on Disease Active 2023-09 00:00: 00 [facility] Intrauteri ne contracept akhil device threads lost, subsequent encounter Intrauteri ne contracept akhil device threads lost, subsequent encounter Disease Active 4-04 00:00: 00 [facility] Anemia of mother in , antepartum Anemia of mother in , antepartum Disease Active 2021-09 1-23 00:00: 00 [facility] H/O abdominopl asty H/O abdominopl asty Disease Active 02-14 00:00: 00 [facility] Obesity in , antepartum Obesity in , antepartum Disease Active 01-24 00:00: 00 [facility] Obesity (BMI 30-39.9) Obesity (BMI 30-39.9) Disease Active 01-24 00:00: 00 [facility] Obesity affecting Obesity affecting Disease Active 2016-0 5-03 00:00: 00 [facility] Need for HPV vaccinatio n Need for HPV vaccinatio n Disease Resolve d 4-23 00:00: 00 2024-09-23 00:00:00 2024-09-23 09:05:16 [facility] Other general counseling and advice for contracept akhil management Other general counseling and advice for contracept akhil management Disease Resolve d 0 4-24 00:00: 00 2024-09-23 00:00:00 2024-09-23 09:05:15 [facility] Calculus of gallbladde r without cholecysti tis without obstructio n Calculus of gallbladde r without cholecysti tis without obstructio n Disease Resolve d 6-28 00:00: 00 2024-09-23 00:00:00 2024-09-23 09:05:13 [facility] IUD (intrauter ine device) in place IUD (intrauter ine device) in place Disease Resolve d 4-04 00:00: 00 2024-09-22 00:00:00 2024-09-22 11:52:15 [facility] Other general counseling and advice for contracept akhil management Other general counseling and advice for contracept akhil management Disease Resolve d 3-07 00:00: 00 2022-12-26 00:00:00 2022-12-26 19:16:48 [facility] Susceptibl e to varicella (non-immun e), currently Susceptibl e to varicella (non-immun e), currently Disease Resolve d 1-20 00:00: 00 2022-12-26 00:00:00 2022-12-26 19:16:46 Overview: Formattin g of this note might be different from the original. Address pp [facility] Rubella non-immune status, antepartum Rubella non-immune status, antepartum Disease Resolve d 1-20 00:00: 00 2022-12-26 00:00:00 2022-12-26 19:16:45 Overview: Formattin g of this note might be different from the original. Address pp [facility] care and examinatio n of lactating mother care and examinatio n of lactating mother Disease Resolve d 2022-0 2-10 00:00: 00 2022-11-28 00:00:00 2022-11-28 10:22:31 [facility] Anemia of mother in , antepartum Anemia of mother in , antepartum Disease Resolve d 2021-1 1-23 00:00: 00 2022-11-28 00:00:00 2022-11-28 10:23:23 [facility] Acute blood loss anemia Acute blood loss anemia Disease Resolve d 2022-0 1-21 00:00: 00 2022-11-03 00:00:00 2022-11-03 08:48:39 [facility] (spontaneo us vaginal delivery) (spontaneo us vaginal delivery) Disease Resolve d 2022-0 1-20 00:00: 00 2022-11-03 00:00:00 2022-11-03 08:48:56 [facility] Single live Single live Disease Resolve d 2022-0 1-20 00:00: 00 2022-11-03 00:00:00 2022-11-03 08:48:53 [facility] Obstetrica l laceration Obstetrica l laceration Disease Resolve d 2022-0 1-20 00:00: 00 2022-11-03 00:00:00 2022-11-03 08:48:33 [facility] 39 weeks gestation of 39 weeks gestation of Disease Resolve d 2022-0 1-19 00:00: 00 2022-11-03 00:00:00 2022-11-03 08:48:35 [facility] Multiparit y Multiparit y Disease Resolve d 2021-0 5-24 00:00: 00 2022-11-03 00:00:00 2022-11-03 08:48:49 [facility] History of delivery History of delivery Disease Resolve d 2021-0 5-24 00:00: 00 2022-11-03 00:00:00 2022-11-03 08:48:48 [facility] Supervisio n of high risk in third trimester Supervisio n of high risk in third trimester Disease Resolve d 0 1-19 00:00: 00 2022-11-03 00:00:00 2022-11-03 08:48:54 [facility] Pain of round ligament during Pain of round ligament during Disease Resolve d 0 9-13 00:00: 00 2022-10-12 00:00:00 2022-10-12 08:00:26 [facility] Lump of right breast Lump of right breast Disease Resolve d 5-03 00:00: 00 2022-10-12 00:00:00 2022-10-12 08:00:36 [facility] Maternal varicella, non-immune Maternal varicella, non-immune Disease Resolve d 5-25 00:00: 00 2022-08-16 00:00:00 2022-08-16 08:08:05 Overview: Formattin g of this note might be different from the original. Address in PP [facility] 17 weeks gestation of 17 weeks gestation of Disease Resolve d 6-13 00:00: 00 2022-05-30 00:00:00 2022-05-30 14:56:07 [facility] Other general counseling and advice for contracept akhil management Other general counseling and advice for contracept akhil management Disease Resolve d 0 7- 00:00: 00 2022-05-30 00:00:00 2022-05-30 14:55:53 [facility] BMI 33.0-33.9, adult BMI 33.0-33.9, adult Disease Resolve d 0 6-11 00:00: 00 2022-05-30 00:00:00 2022-05-30 14:56:05 [facility] care and examinatio n of lactating mother care and examinatio n of lactating mother Disease Resolve d 0 7-05 00:00: 00 2021-04-18 00:00:00 2021-04-18 09:52:09 [facility] Chlamydia infection affecting Chlamydia infection affecting Disease Resolve d 2020-0 1-21 00:00: 00 2021-04-18 00:00:00 2021-04-18 09:52:05 [facility] Gonorrhea in Gonorrhea in Disease Resolve d 2020-0 1-21 00:00: 00 2021-04-18 00:00:00 2021-04-18 09:52:02 [facility] Vaginal bleeding in Vaginal bleeding in Disease Resolve d 2020-0 6-11 00:00: 00 2021-03-28 00:00:00 2021-03-28 10:20:24 [facility] 25 weeks gestation of 25 weeks gestation of Disease Resolve d 2020-0 6-11 00:00: 00 2021-03-28 00:00:00 2021-03-28 10:20:48 [facility] labor in second trimester without delivery labor in second trimester without delivery Disease Resolve d 2020-0 6-11 00:00: 00 2021-03-28 00:00:00 2021-03-28 10:20:36 [facility] Pain of round ligament during Pain of round ligament during Disease Resolve d 0 6-02 00:00: 00 2021-03-28 00:00:00 2021-03-28 10:20:25 [facility] Headache in Headache in Disease Resolve d 2020-0 2-22 00:00: 00 2021-03-28 00:00:00 2021-03-28 10:20:47 [facility] Over weight Over weight Disease Resolve d 2020-0 1-19 00:00: 00 2021-03-28 00:00:00 2021-03-28 10:20:41 [facility] Nexplanon removal Nexplanon removal Disease Resolve d 2016-0 8-21 00:00: 00 2021-03-28 00:00:00 2021-03-28 10:20:45 [facility] Non morbid obesity due to excess calories Non morbid obesity due to excess calories Disease Resolve d 8 00:00: 00 2020-10-12 00:00:00 2020-10-12 10:28:46 [facility] Other general counseling and advice for contracept akhil management Other general counseling and advice for contracept akhil management Disease Resolve d 8 00:00: 00 2020-10-12 00:00:00 2020-10-12 10:28:48 [facility] Contracept akhil management Contracept akhil management Disease Resolve d 111 00:00: 00 2020-10-12 00:00:00 2020-10-12 10:28:41 [facility] Chlamydia trachomati s infection of lower genitourin sam sites Chlamydia trachomati s infection of lower genitourin sam sites Disease Resolve d 1 00:00: 00 2016-01-25 00:00:00 2016-01-25 11:25:43 [facility] Allergies, Adverse Reactions, Alerts Allergy Name Allergy Type Status Severity Reaction(s) Onset Date Inactive Date Treating Clinician Comments Source No Known Drug Allergie s DA Active U 03-05 00:00: 00 [facility] No Known Drug Allergie s DA Active U 03-05 00:00: 00 [facility] NO KNOWN ALLERGIE S Drug Class Active [facility] Social History Social Habit Start Date Stop Date Quantity Comments Source ASSERTION 2024-09-03 00:00:00 [facility] Alcoholic beverage intake 2024-09-23 00:00:00 2024-09-23 00:00:00 0 /d [facility] Alcohol intake 2024-01-15 00:00:00 2024-01-15 00:00:00 0 /d [facility] History of Social function 2024-01-15 00:00:00 2024-01-15 00:00:00 [facility] Exposure to SARS-CoV-2 (event) 2023-01-05 00:00:00 2023-01-15 09:35:00 Not sure [facility] Tobacco use and exposure 2022-06-06 00:00:00 2022-06-06 00:00:00 Smokeless tobacco non-user [facility] Sex assigned at 1995 00:00:00 1995 00:00:00 [facility] Smoking Status Start Date Stop Date Source Never smoked tobacco [facility] Medications Ordered Medication Name Filled Medication Name Start Date Stop Date Current Medication? Ordering Clinician Indication Dosage Frequency Signature (SIG) Comments Components Source piperacilli n-tazobacta m (ZOSYN) 3.375 g in NaCl 0.9% (NS) 100 mL MINI-BAG 05-14 19:00: 00 05-14 19:54 :00 No 3.375g 3.375 g, IV Piggyback, ONCE, 1 dose, On Sun05/14/23 at 1400, Administer over 30 Minutes, 100 mL
Reas on for Anti-Infec tive: Empiric Therapy for Suspected Infection< br>Empiric Therapy Site: Abdominal< br>Duratio n of therapy: 72 hours [facility] ondansetron (ZOFRAN (PF)) injection 4 mg 05-14 18:45: 00 05-14 17:48 :00 No 4mg 4 mg, Slow IV Push, ONCE, 1 dose, On Sun05/14/23 at 1345, Routine [facility] iopamidol (ISOVUE 370-500 mL) injection 80 mL 05-14 18:25: 00 05-14 18:45 :00 No [id number] 80mL 80 mL, Intravenou s, ONCE, 1 dose, On Sun05/14/23 at 1345, Routine [facility] doxycycline hyclate 100 mg capsule 05-14 00:00: 00 05-29 04:59 :00 No [id number] 100mg Take 1 capsule by mouth in the morning and 1 capsule in the evening. Do all this for 14 days. [facility] metroNIDAZO LE 500 mg tablet 05-14 00:00: 00 05-29 04:59 :00 No [id number] 500mg Take 1 tablet by mouth in the morning and 1 tablet in the evening. Do all this for 14 days. [facility] levonorgest reL (LILETTA) IUD 1 Device 11-29 23:15: 00 11-29 22:29 :00 No [id number] 1{devic e} [facility] foLIC acid (FOLATE) tablet 1 mg 10-15 15:00: 00 Yes 1mg 1 mg, Oral, DAILY, First dose on 10/15/22 at 0900, Until Discontinu ed, Routine [facility] ascorbic acid (vitamin C) (VITAMIN C) tablet 500 mg 10-14 15:30: 00 Yes 500mg 500 mg, Oral, BID, First dose on 10/14/22 at 0930, Until Discontinu ed, Routine [facility] ferrous sulfate tablet 325 mg 10-14 15:30: 00 Yes 325mg 325 mg, Oral, BID, First dose on 10/14/22 at 0930, Until Discontinu ed, Routine [facility] [id number] fum-folic () 27 mg iron- 1 mg folic tablet 10-14 00:00: 00 12-25 00:00 :00 No [id number] 1{tbl} Take 1 tablet by mouth in the morning. [facility] docusate 100 mg capsule 10-14 00:00: 00 12-25 00:00 :00 No [id number] 200mg Take 2 capsules by mouth once daily as needed for Constipati on. [facility] ferrous sulfate 325 mg (65 mg iron) tablet 10-14 00:00: 00 12-25 00:00 :00 No [id number] 325mg Take 1 tablet by mouth in the morning and 1 tablet in the evening. [facility] ibuprofen 600 mg tablet 10-14 00:00: 00 12-25 00:00 :00 No [id number] 600mg Take 1 tablet by mouth every 6 (six) hours as needed (Pain). Take with food or milk. [facility] rho(D) immune globulin (RHOGAM) syringe 300 mcg 10-13 12:39: 57 Yes 300ug 300 mcg, Intramuscu lar, ONCE, For 1 dose, Conditiona l, Routine [facility] ibuprofen (IBU) tablet 600 mg 10-13 12:39: 53 Yes 600mg 600 mg, Oral, Q6HPRN, Starting on Sun10/13/22 at 0639, Until Discontinu ed, Routine, Pain (scale 4-6) [facility] acetaminoph en (TYLENOL) tablet 650 mg 10-13 12:39: 53 Yes 650mg 650 mg, Oral, Q6HPRN, Starting on Sun10/13/22 at 0639, Until Discontinu ed, Routine, Pain (scale 1-3) [facility] diphenhydrA MINE (BENADRYL) tablet 25 mg 10-13 12:39: 53 Yes 25mg 25 mg, Oral, Q6HPRN, Starting on Sun10/13/22 at 0639, Until Discontinu ed, Routine, Sleep, Itching [facility] ondansetron (ZOFRAN (PF)) injection 4 mg 10-13 12:39: 53 Yes 4mg 4 mg, Slow IV Push, Q8HPRN, Starting on Sun10/13/22 at 0639, Until Discontinu ed, Routine, Nausea and Vomiting (N/V) [facility] simethicone (GAS RELIEF (SIMETHICON E)) chewable tablet 160 mg 10-13 12:39: 53 Yes 160mg 160 mg, Oral, PC+HSPRN, Starting on Sun10/13/22 at 0639, Until Discontinu ed, Routine, Gas [facility] docusate (COLACE) capsule 200 mg 10-13 12:39: 53 Yes 200mg 200 mg, Oral, QDAILYPRN, Starting on Sun10/13/22 at 0639, Until Discontinu ed, Routine, Constipati on [facility] magnesium hydroxide (MILK OF MAGNESIA) 400 mg/5 mL suspension 30 mL 10-13 12:39: 53 Yes 30mL 30 mL, Oral, QDAILYPRN, Starting on Sun10/13/22 at 0639, Until Discontinu ed, Routine, Constipati on [facility] benzocaine- menthol (DERMOPLAST ) 20-0.5 % topical spray 10-13 12:39: 53 Yes Topical, PRN, Starting on Sun10/13/22 at 0639, Until Discontinu ed, Routine, Perineum discomfort [facility] oxytocin (PITOCIN) 30 units in NS 500 mL IV infusion 10-13 12:03: 10 10-13 12:39 :55 No 300mL/h 300 mL/hr, IV Infusion, SEE-INSTRU CTIONS, Starting on Sun10/13/[address] at 300 mL/hr for 1 hr then 150 mL/hr for 1 hr. & nbsp; For post delivery uterotonic
[facility] ropivacaine 0.2 % (NAROPIN (PF)) epidural infusion 10-13 05:32: 00 10-13 13:23 :28 No Epidural, CONTINUOUS PRN, Starting on Sun10/12/22 at 2332, Until Sun10/13/22 at 0723, Routine, Intra-op [facility] lidocaine-e pinephrine (XYLOCAINE W/EPINEPHRI NE) 1.5 %-1:200,000 injection 10-13 05:26: 00 10-13 13:23 :28 No Epidural, ONCE INTRA PROCEDURE, Starting on Sun10/12/22 at 2326, Until Sun10/13/22 at 0723, Routine, Intra-op [facility] butorphanol (STADOL) injection 1 mg 10-12 23:45: 00 10-12 22:57 :00 No 1mg 1 mg, Intravenou s, ONCE, 1 dose, On Sun10/12/22 at 1745, Routine [facility] proMETHazin e (PHENERGAN) 12.5 mg in NS 50 mL IV piggyback (CNR) 10-12 23:45: 00 10-12 23:55 :00 No 12.5mg 12.5 mg, IV Piggyback, at 200 mL/hr Administer over 15 Minutes, ONCE, 1 dose, On Macie 10/12/22 at 1745, Routine [facility] sodium citrate-cit juan luis acid (BICITRA) 500-334 mg/5 mL solution 30 mL 10-12 14:35: 45 10-13 05:18 :00 No 30mL 30 mL, Oral, PRE-PROCED URE ONCE, 1 dose, Starting on Macie 10/12/22 at 0835, Until Discontinu ed, Routine, Surgery/Pr ocedure [facility] lactated ringers IV infusion 500 mL 10-12 14:35: 45 10-13 12:39 :55 No 500mL at 999 mL/hr, 500 mL, IV Infusion, PRN - SEE INSTRUCTIO NS, Starting on Sun10/12/22 at 0835, Until Sun10/13/22 at 0639, Routine [facility] D5W-LR IV infusion 1,000 mL 10-12 14:35: 45 10-13 12:39 :55 No 1000mL at 1-125 mL/hr, IV Infusion, TITRATE, Starting on Macie 10/12/22 at 0835, Until Sun10/13/22 at 0639, Routine [facility] ascorbic acid, vitamin C, 500 mg tablet 2021-09 00:00: 00 10-14 00:00 :00 No [id number] 500mg Take 1 tablet by mouth in the morning and 1 tablet at noon and 1 tablet in the evening. [facility] ferrous sulfate 325 mg (65 mg iron) tablet 2021-09 00:00: 00 10-14 00:00 :00 No [id number] 325mg Take 1 tablet by mouth in the morning and 1 tablet in the evening. [facility] maalox:diph enhydrAMINE :lidocaine 2 % viscous 1:1:1 (FIRST-MOUT HWASH BLM) oral suspension 15 mL 2021-09 2-24 03:30: 00 09-16 02:57 :00 No 15mL 15 mL, Oral, ONCE NOW, 1 dose, On Sun09/15/22 at 2130, Routine [facility] terconazole 80 mg vaginal suppository 2021-09 1-08 00:00: 00 08-05 05:59 :00 No [id number] 80mg Insert 1 Suppositor y into vagina at bedtime for 3 days. [facility] ascorbic acid, vitamin C, 500 mg tablet 2021-09 00:00: 00 10-14 00:00 :00 No [id number] 500mg Take 1 tablet by mouth in the morning and 1 tablet at noon and 1 tablet in the evening. [facility] ferrous sulfate 325 mg (65 mg iron) tablet 2021-09 00:00: 00 10-14 00:00 :00 No [id number] 325mg Take 1 tablet by mouth in the morning and 1 tablet in the evening. [facility] clindamycin 300 mg capsule 06-16 00:00: 00 06-24 04:59 :00 No [id number] 300mg Take 1 capsule by mouth in the morning and 1 capsule in the evening. Do all this for 7 days. [facility] metroNIDAZO LE 500 mg tablet 06-08 00:00: 00 08-16 00:00 :00 No [id number] 500mg Take 1 tablet by mouth in the morning and 1 tablet in the evening. [facility] hydroxyprog esterone(PF ) (SHAGGY AUTO-INJECT OR) 275 mg/1.1 mL injection 275 mg 05-30 21:15: 00 08-16 14:38 :00 No [id number] 275mg 275 mg, Subcutaneo us, ONCE, 1 dose, On Sun05/30/22 at 1615, Routine [facility] hydroxyprog esterone,PF , (SHAGGY, PF,) 275 mg/1.1 mL injection 05-16 00:00: 00 10-14 00:00 :00 No [id number] 275mg inject 1.1 mL under the skin weekly. [facility] vit 33-iron-fol ic-dha (SELECT-OB + DHA) 29 mg iron-1 mg -250 mg combo pack 6-13 00:00: 00 10-14 00:00 :00 No [id number] 1{packe t} Take 1 Packet by mouth daily. [facility] PNV 67-iron ps-folate no.1-dha (VITAFOL ULTRA) 29 mg iron- 1 mg-200 mg Cap - 00:00: 00 08-16 00:00 :00 No [id number] 1{each} Take 1 Each by mouth daily. [facility] Immunizations Ordered Immunization Name Filled Immunization Name Date Status Comments Source HPV9 2024-01-15 00:00:00 Completed [facility] HPV9 2023-08-09 00:00:00 Completed Varicella (varivax)(chicken pox) 2022-10-14 00:00:00 Completed [facility] Varicella (varivax)(chicken pox) 2022-10-14 00:00:00 Completed [facility] Varicella (varivax)(chicken pox) 2022-10-14 00:00:00 Completed [facility] Varicella (varivax)(chicken pox) 2022-10-14 00:00:00 Completed [facility] Varicella (varivax)(chicken pox) 2022-10-14 00:00:00 Completed [facility] Varicella (varivax)(chicken pox) 2022-10-14 00:00:00 Completed [facility] Varicella (varivax)(chicken pox) 2022-10-14 00:00:00 Completed [facility] Varicella (varivax)(chicken pox) 2022-10-14 00:00:00 Completed [facility] Varicella (varivax)(chicken pox) 2022-10-14 00:00:00 Completed [facility] Varicella (varivax)(chicken pox) 2022-10-14 00:00:00 Completed [facility] Varicella (varivax)(chicken pox) 2022-10-14 00:00:00 Completed [facility] Varicella (varivax)(chicken pox) 2022-10-14 00:00:00 Completed [facility] Varicella (varivax)(chicken pox) 2022-10-14 00:00:00 Completed [facility] TDAP 2022-08-01 00:00:00 Completed [facility] TDAP 2022-08-01 00:00:00 Completed [facility] TDAP 2022-08-01 00:00:00 Completed [facility] TDAP 2022-08-01 00:00:00 Completed [facility] TDAP 2022-08-01 00:00:00 Completed [facility] TDAP 2022-08-01 00:00:00 Completed [facility] TDAP 2022-08-01 00:00:00 Completed [facility] TDAP 2022-08-01 00:00:00 Completed [facility] TDAP 2022-08-01 00:00:00 Completed [facility] TDAP 2022-08-01 00:00:00 Completed [facility] TDAP 2022-08-01 00:00:00 Completed [facility] TDAP 2022-08-01 00:00:00 Completed [facility] TDAP 2022-08-01 00:00:00 Completed [facility] TDAP 2022-08-01 00:00:00 Completed [facility] TDAP 2022-08-01 00:00:00 Completed [facility] TDAP 2022-08-01 00:00:00 Completed [facility] TDAP 2022-08-01 00:00:00 Completed [facility] TDAP 2022-08-01 00:00:00 Completed [facility] TDAP 2022-08-01 00:00:00 Completed [facility] TDAP 2022-08-01 00:00:00 Completed [facility] TDAP 2022-08-01 00:00:00 Completed [facility] TDAP 2022-08-01 00:00:00 Completed [facility] TDAP 2022-08-01 00:00:00 Completed [facility] TDAP 2022-08-01 00:00:00 Completed [facility] TDAP 2022-08-01 00:00:00 Completed [facility] TDAP 2022-08-01 00:00:00 Completed [facility] TDAP 2022-08-01 00:00:00 Completed [facility] TDAP 2022-08-01 00:00:00 Completed [facility] TDAP 2022-08-01 00:00:00 Completed [facility] TDAP 2022-08-01 00:00:00 Completed [facility] TDAP 2022-08-01 00:00:00 Completed [facility] TDAP 2022-08-01 00:00:00 Completed [facility] TDAP 2022-08-01 00:00:00 Completed [facility] TDAP 2022-08-01 00:00:00 Completed [facility] TDAP 2022-08-01 00:00:00 Completed [facility] TDAP 2022-08-01 00:00:00 Completed [employer] Vaccine Quad .5 mL IM 6+ MO 2020-10-12 00:00:00 Completed [facility] Influenza Virus Vaccine Quad .5 mL IM 6+ MO 2020-10-12 00:00:00 Completed [facility] Influenza Virus Vaccine Quad .5 mL IM 6+ MO 2020-10-12 00:00:00 Completed [facility] Influenza Virus Vaccine Quad .5 mL IM 6+ MO 2020-10-12 00:00:00 Completed [facility] Influenza Virus Vaccine Quad .5 mL IM 6+ MO 2020-10-12 00:00:00 Completed [facility] Influenza Virus Vaccine Quad .5 mL IM 6+ MO 2020-10-12 00:00:00 Completed [facility] Influenza Virus Vaccine Quad .5 mL IM 6+ MO 2020-10-12 00:00:00 Completed [facility] Influenza Virus Vaccine Quad .5 mL IM 6+ MO 2020-10-12 00:00:00 Completed [facility] Influenza Virus Vaccine Quad .5 mL IM 6+ MO 2020-10-12 00:00:00 Completed [facility] Influenza Virus Vaccine Quad .5 mL IM 6+ MO 2020-10-12 00:00:00 Completed [facility] Influenza Virus Vaccine Quad .5 mL IM 6+ MO 2020-10-12 00:00:00 Completed [facility] Influenza Virus Vaccine Quad .5 mL IM 6+ MO 2020-10-12 00:00:00 Completed [facility] Influenza Virus Vaccine Quad .5 mL IM 6+ MO 2020-10-12 00:00:00 Completed [facility] Influenza Virus Vaccine Quad .5 mL IM 6+ MO 2020-10-12 00:00:00 Completed [facility] Influenza Virus Vaccine Quad .5 mL IM 6+ MO 2020-10-12 00:00:00 Completed [facility] Influenza Virus Vaccine Quad .5 mL IM 6+ MO 2020-10-12 00:00:00 Completed [facility] Influenza Virus Vaccine Quad .5 mL IM 6+ MO 2020-10-12 00:00:00 Completed [facility] Influenza Virus Vaccine Quad .5 mL IM 6+ MO 2020-10-12 00:00:00 Completed [facility] Influenza Virus Vaccine Quad .5 mL IM 6+ MO 2020-10-12 00:00:00 Completed [facility] Influenza Virus Vaccine Quad .5 mL IM 6+ MO 2020-10-12 00:00:00 Completed [facility] Influenza Virus Vaccine Quad .5 mL IM 6+ MO 2020-10-12 00:00:00 Completed [facility] Influenza Virus Vaccine Quad .5 mL IM 6+ MO 2020-10-12 00:00:00 Completed [facility] Influenza Virus Vaccine Quad .5 mL IM 6+ MO 2020-10-12 00:00:00 Completed [facility] Influenza Virus Vaccine Quad .5 mL IM 6+ MO 2020-10-12 00:00:00 Completed [facility] Influenza Virus Vaccine Quad .5 mL IM 6+ MO 2020-10-12 00:00:00 Completed [facility] Influenza Virus Vaccine Quad .5 mL IM 6+ MO 2020-10-12 00:00:00 Completed [facility] Influenza Virus Vaccine Quad .5 mL IM 6+ MO 2020-10-12 00:00:00 Completed [facility] Influenza Virus Vaccine Quad .5 mL IM 6+ MO 2020-10-12 00:00:00 Completed [facility] Influenza Virus Vaccine Quad .5 mL IM 6+ MO 2020-10-12 00:00:00 Completed [facility] Influenza Virus Vaccine Quad .5 mL IM 6+ MO 2020-10-12 00:00:00 Completed [facility] Influenza Virus Vaccine Quad .5 mL IM 6+ MO 2020-10-12 00:00:00 Completed [facility] Influenza Virus Vaccine Quad .5 mL IM 6+ MO 2020-10-12 00:00:00 Completed [facility] Influenza Virus Vaccine Quad .5 mL IM 6+ MO 2020-10-12 00:00:00 Completed [facility] Influenza Virus Vaccine Quad .5 mL IM 6+ MO 2020-10-12 00:00:00 Completed [facility] Influenza Virus Vaccine Quad .5 mL IM 6+ MO 2020-10-12 00:00:00 Completed [facility] Influenza Virus Vaccine Quad .5 mL IM 6+ MO 2020-10-12 00:00:00 Completed [facility] Influenza Virus Vaccine Quad .5 mL IM 6+ MO 2020-10-12 00:00:00 Completed [facility] Influenza Virus Vaccine Quad .5 mL IM 6+ MO 2020-10-12 00:00:00 Completed [facility] Influenza Virus Vaccine Quad .5 mL IM 6+ MO 2020-10-12 00:00:00 Completed [facility] Influenza Virus Vaccine Quad .5 mL IM 6+ MO 2020-10-12 00:00:00 Completed [facility] Influenza Virus Vaccine Quad .5 mL IM 6+ MO 2020-10-12 00:00:00 Completed [facility] Influenza Virus Vaccine Quad .5 mL IM 6+ MO 2020-10-12 00:00:00 Completed [facility] Influenza Virus Vaccine Quad .5 mL IM 6+ MO 2020-10-12 00:00:00 Completed [facility] Influenza Virus Vaccine Quad .5 mL IM 6+ MO 2020-10-12 00:00:00 Completed [facility] Influenza Virus Vaccine Quad .5 mL IM 6+ MO 2020-10-12 00:00:00 Completed [facility] Influenza Virus Vaccine Quad .5 mL IM 6+ MO 2020-10-12 00:00:00 Completed [facility] Influenza Virus Vaccine Quad .5 mL IM 6+ MO 2020-10-12 00:00:00 Completed [facility] Influenza Virus Vaccine Quad .5 mL IM 6+ MO (FLUZONE/FLULAVAL/F LUARIX) 2020-10-12 00:00:00 Completed [facility] HPV9 2017-04-24 00:00:00 Completed [facility] HPV9 2017-04-24 00:00:00 Completed [facility] HPV9 2017-04-24 00:00:00 Completed [facility] HPV9 2017-04-24 00:00:00 Completed [facility] HPV9 2017-04-24 00:00:00 Completed [facility] HPV9 2017-04-24 00:00:00 Completed [facility] HPV9 2017-04-24 00:00:00 Completed [facility] HPV9 2017-04-24 00:00:00 Completed [facility] HPV9 2017-04-24 00:00:00 Completed [facility] HPV9 2017-04-24 00:00:00 Completed [facility] HPV9 2017-04-24 00:00:00 Completed [facility] HPV9 2017-04-24 00:00:00 Completed [facility] HPV9 2017-04-24 00:00:00 Completed [facility] HPV9 2017-04-24 00:00:00 Completed [facility] HPV9 2017-04-24 00:00:00 Completed [facility] HPV9 2017-04-24 00:00:00 Completed [facility] HPV9 2017-04-24 00:00:00 Completed [facility] HPV9 2017-04-24 00:00:00 Completed [facility] HPV9 2017-04-24 00:00:00 Completed [facility] HPV9 2017-04-24 00:00:00 Completed [facility] HPV9 2017-04-24 00:00:00 Completed [facility] HPV9 2017-04-24 00:00:00 Completed [facility] HPV9 2017-04-24 00:00:00 Completed [facility] HPV9 2017-04-24 00:00:00 Completed [facility] HPV9 2017-04-24 00:00:00 Completed [facility] HPV9 2017-04-24 00:00:00 Completed [facility] HPV9 2017-04-24 00:00:00 Completed [facility] HPV9 2017-04-24 00:00:00 Completed [facility] HPV9 2017-04-24 00:00:00 Completed [facility] HPV9 2017-04-24 00:00:00 Completed [facility] HPV9 2017-04-24 00:00:00 Completed [facility] HPV9 2017-04-24 00:00:00 Completed [facility] HPV9 2017-04-24 00:00:00 Completed [facility] HPV9 2017-04-24 00:00:00 Completed [facility] HPV9 2017-04-24 00:00:00 Completed [facility] HPV9 2017-04-24 00:00:00 Completed [facility] HPV9 2017-04-24 00:00:00 Completed [facility] HPV9 2017-04-24 00:00:00 Completed [facility] HPV9 2017-04-24 00:00:00 Completed [facility] HPV9 2017-04-24 00:00:00 Completed [facility] HPV9 2017-04-24 00:00:00 Completed [facility] HPV9 2017-04-24 00:00:00 Completed [facility] HPV9 2017-04-24 00:00:00 Completed [facility] HPV9 2017-04-24 00:00:00 Completed [facility] HPV9 2017-04-24 00:00:00 Completed [facility] HPV9 2017-04-24 00:00:00 Completed [facility] HPV9 2017-04-24 00:00:00 Completed [facility] HPV9 2017-04-24 00:00:00 Completed [facility] Td 2008-05-06 00:00:00 Completed [facility] Td 2008-05-06 00:00:00 Completed [facility] Td 2008-05-06 00:00:00 Completed [facility] Td 2008-05-06 00:00:00 Completed [facility] Td 2008-05-06 00:00:00 Completed [facility] Td 2008-05-06 00:00:00 Completed [facility] Td 2008-05-06 00:00:00 Completed [facility] Td 2008-05-06 00:00:00 Completed [facility] Td 2008-05-06 00:00:00 Completed [facility] Td 2008-05-06 00:00:00 Completed [facility] Td 2008-05-06 00:00:00 Completed [facility] Td 2008-05-06 00:00:00 Completed [facility] Td 2008-05-06 00:00:00 Completed [facility] Td 2008-05-06 00:00:00 Completed [facility] Td 2008-05-06 00:00:00 Completed [facility] Td 2008-05-06 00:00:00 Completed [facility] Td 2008-05-06 00:00:00 Completed [facility] Td 2008-05-06 00:00:00 Completed [facility] Td 2008-05-06 00:00:00 Completed [facility] Td 2008-05-06 00:00:00 Completed [facility] Td 2008-05-06 00:00:00 Completed [facility] Td 2008-05-06 00:00:00 Completed [facility] Td 2008-05-06 00:00:00 Completed [facility] Td 2008-05-06 00:00:00 Completed [facility] TD, NOS 2008-05-06 00:00:00 Completed [facility] TD, NOS 2008-05-06 00:00:00 Completed [facility] TD, NOS 2008-05-06 00:00:00 Completed [facility] TD, NOS 2008-05-06 00:00:00 Completed [facility] TD, NOS 2008-05-06 00:00:00 Completed [facility] TD, NOS 2008-05-06 00:00:00 Completed [facility] TD, NOS 2008-05-06 00:00:00 Completed [facility] TD, NOS 2008-05-06 00:00:00 Completed [facility] TD, NOS 2008-05-06 00:00:00 Completed [facility] TD, NOS 2008-05-06 00:00:00 Completed [facility] TD, NOS 2008-05-06 00:00:00 Completed [facility] TD, NOS 2008-05-06 00:00:00 Completed [facility] TD, NOS 2008-05-06 00:00:00 Completed [facility] TD, NOS 2008-05-06 00:00:00 Completed [facility] TD, NOS 2008-05-06 00:00:00 Completed [facility] TD, NOS 2008-05-06 00:00:00 Completed [facility] TD, NOS 2008-05-06 00:00:00 Completed [facility] TD, NOS 2008-05-06 00:00:00 Completed [facility] TD, NOS 2008-05-06 00:00:00 Completed [facility] TD, NOS 2008-05-06 00:00:00 Completed [facility] TD, NOS 2008-05-06 00:00:00 Completed [facility] TD, NOS 2008-05-06 00:00:00 Completed [facility] TD, NOS 2008-05-06 00:00:00 Completed [facility] TD, NOS 2008-05-06 00:00:00 Completed TD, NOS Unknown Completed [facility] HPV9 Unknown Completed [facility] Influenza Virus Vaccine Quad .5 mL IM 6+ MO (FLUZONE/FLULAVAL/F LUARIX) Unknown Completed [facility] TDAP Unknown Completed [facility] Varicella (varivax)(chicken pox) Unknown Completed [facility] TD, NOS Unknown Completed [facility] HPV9 Unknown Completed [facility] Influenza Virus Vaccine Quad .5 mL IM 6+ MO (FLUZONE/FLULAVAL/F LUARIX) Unknown Completed [facility] TDAP Unknown Completed [facility] Varicella (varivax)(chicken pox) Unknown Completed [facility] TD, NOS Unknown Completed [facility] HPV9 Unknown Completed [facility] Influenza Virus Vaccine Quad .5 mL IM 6+ MO (FLUZONE/FLULAVAL/F LUARIX) Unknown Completed [facility] TDAP Unknown Completed [facility] Varicella (varivax)(chicken pox) Unknown Completed [facility] TD, NOS Unknown Completed [facility] HPV9 Unknown Completed [facility] Influenza Virus Vaccine Quad .5 mL IM 6+ MO (FLUZONE/FLULAVAL/F LUARIX) Unknown Completed [facility] TDAP Unknown Completed [facility] Varicella (varivax)(chicken pox) Unknown Completed [facility] Vital Signs Vital Name Observation Time Observation Value Comments S ource Systolic blood pressure 2024-09-23 15:13:00 132 mm[Hg] [facility] Diastolic blood pressure 2024-09-23 15:13:00 94 mm[Hg] [facility] Heart rate 2024-09-23 14:34:00 87 /min [facility] Body temperature 2024-09-23 14:34:00 36.67 [place] [facility] Respiratory rate 2024-09-23 14:34:00 19 /min [facility] Body height 2024-09-23 14:34:00 152.4 cm [facility] Body weight 2024-09-23 14:34:00 83.825 kg [facility] BMI 2024-09-23 14:34:00 36.09 kg/m2 [facility] Systolic blood pressure 2024-04-17 20:46:00 135 mm[Hg] [facility] Diastolic blood pressure 2024-04-17 20:46:00 78 mm[Hg] [facility] Heart rate 2024-04-17 20:46:00 69 /min [facility] Body temperature 2024-04-17 20:46:00 36.22 [place] [facility] Respiratory rate 2024-04-17 20:46:00 18 /min [facility] Body height 2024-04-17 20:46:00 152.4 cm [facility] Body weight 2024-04-17 20:46:00 82.01 kg [facility] BMI 2024-04-17 20:46:00 35.31 kg/m2 [facility] Systolic blood pressure 2024-01-15 14:57:00 156 mm[Hg] [facility] Diastolic blood pressure 2024-01-15 14:57:00 65 mm[Hg] [facility] Heart rate 2024-01-15 14:57:00 94 /min [facility] Body temperature 2024-01-15 14:57:00 36.5 [place] [facility] Respiratory rate 2024-01-15 14:57:00 18 /min [facility] Body height 2024-01-15 14:57:00 152.4 cm [facility] Body weight 2024-01-15 14:57:00 81.557 kg [facility] BMI 2024-01-15 14:57:00 35.11 kg/m2 [facility] Body temperature 2023-08-09 14:42:00 36.67 [place] [facility] Systolic blood pressure 2023-05-15 14:39:00 128 mm[Hg] [facility] Diastolic blood pressure 2023-05-15 14:39:00 82 mm[Hg] [facility] Heart rate 2023-05-15 14:39:00 88 /min [facility] Body temperature 2023-05-15 14:39:00 36.28 [place] [facility] Respiratory rate 2023-05-15 14:39:00 18 /min [facility] Body height 2023-05-15 14:39:00 152.4 cm [facility] Body weight 2023-05-15 14:39:00 81.421 kg [facility] BMI 2023-05-15 14:39:00 35.06 kg/m2 [facility] Systolic blood pressure 2023-05-14 21:19:00 124 mm[Hg] [facility] Diastolic blood pressure 2023-05-14 21:19:00 68 mm[Hg] [facility] Heart rate 2023-05-14 21:19:00 87 /min [facility] Respiratory rate 2023-05-14 21:19:00 18 /min [facility] Oxygen saturation in Arterial blood by Pulse oximetry 2023-05-14 21:19:00 100 /min [facility] Body temperature 2023-05-14 16:34:00 37.61 [place] [facility] Body height 2023-05-14 16:34:00 152.4 cm [facility] Body weight 2023-05-14 16:34:00 83.462 kg [facility] BMI 2023-05-14 16:34:00 35.94 kg/m2 [facility] Systolic blood pressure 2023-01-15 14:36:00 110 mm[Hg] [facility] Diastolic blood pressure 2023-01-15 14:36:00 65 mm[Hg] [facility] Heart rate 2023-01-15 14:36:00 75 /min [facility] Body temperature 2023-01-15 14:36:00 35.83 [place] [facility] Respiratory rate 2023-01-15 14:36:00 18 /min [facility] Body height 2023-01-15 14:36:00 152.4 cm [facility] Body weight 2023-01-15 14:36:00 80.06 kg [facility] BMI 2023-01-15 14:36:00 34.47 kg/m2 [facility] Systolic blood pressure 2022-12-25 20:12:00 124 mm[Hg] [facility] Diastolic blood pressure 2022-12-25 20:12:00 83 mm[Hg] [facility] Heart rate 2022-12-25 20:12:00 69 /min [facility] Body temperature 2022-12-25 20:12:00 36.39 [place] [facility] Respiratory rate 2022-12-25 20:12:00 18 /min [facility] Body height 2022-12-25 20:12:00 152.4 cm [facility] Body weight 2022-12-25 20:12:00 78.427 kg [facility] BMI 2022-12-25 20:12:00 33.77 kg/m2 [facility] Systolic blood pressure 2022-11-28 16:20:00 132 mm[Hg] [facility] Diastolic blood pressure 2022-11-28 16:20:00 95 mm[Hg] [facility] Heart rate 2022-11-28 16:19:00 85 /min [facility] Body temperature 2022-11-28 16:19:00 36.94 [place] [facility] Respiratory rate 2022-11-28 16:19:00 17 /min [facility] Body height 2022-11-28 16:19:00 152.4 cm [facility] Body weight 2022-11-28 16:19:00 75.887 kg [facility] BMI 2022-11-28 16:19:00 32.67 kg/m2 [facility] Systolic blood pressure 2022-11-03 14:18:00 127 mm[Hg] [facility] Diastolic blood pressure 2022-11-03 14:18:00 89 mm[Hg] [facility] Body weight 2022-11-03 14:12:00 73.936 kg [facility] BMI 2022-11-03 14:12:00 31.83 kg/m2 [facility] Heart rate 2022-11-03 14:12:00 86 /min [facility] Body temperature 2022-11-03 14:12:00 36.33 [place] [facility] Respiratory rate 2022-11-03 14:12:00 20 /min [facility] Body height 2022-11-03 14:12:00 152.4 cm [facility] Systolic blood pressure 2022-10-14 23:27:00 138 mm[Hg] [facility] Diastolic blood pressure 2022-10-14 23:27:00 89 mm[Hg] [facility] Heart rate 2022-10-14 23:27:00 70 /min [facility] Body temperature 2022-10-14 23:27:00 36.56 [place] [facility] Respiratory rate 2022-10-14 23:27:00 18 /min [facility] Oxygen saturation in Arterial blood by Pulse oximetry 2022-10-14 23:27:00 99 /min [facility] Systolic blood pressure 2022-10-11 21:59:00 128 mm[Hg] [facility] Diastolic blood pressure 2022-10-11 21:59:00 76 mm[Hg] [facility] Heart rate 2022-10-11 21:59:00 82 /min [facility] Body temperature 2022-10-11 21:59:00 36.39 [place] [facility] Respiratory rate 2022-10-11 21:59:00 20 /min [facility] Body height 2022-10-11 21:59:00 152.4 cm [facility] Body weight 2022-10-11 21:59:00 86.274 kg [facility] BMI 2022-10-11 21:59:00 37.15 kg/m2 [facility] Systolic blood pressure 2022-10-02 14:40:00 130 mm[Hg] [facility] Diastolic blood pressure 2022-10-02 14:40:00 59 mm[Hg] [facility] Heart rate 2022-10-02 14:40:00 80 /min [facility] Body temperature 2022-10-02 14:40:00 36.22 [place] [facility] Respiratory rate 2022-10-02 14:40:00 18 /min [facility] Body height 2022-10-02 14:40:00 152.4 cm [facility] Body weight 2022-10-02 14:40:00 85.787 kg [facility] BMI 2022-10-02 14:40:00 36.94 kg/m2 [facility] Systolic blood pressure 2022-09-25 14:16:00 129 mm[Hg] [facility] Diastolic blood pressure 2022-09-25 14:16:00 76 mm[Hg] [facility] Heart rate 2022-09-25 14:16:00 86 /min [facility] Body temperature 2022-09-25 14:16:00 36.44 [place] [facility] Respiratory rate 2022-09-25 14:16:00 18 /min [facility] Body height 2022-09-25 14:16:00 152.4 cm [facility] Body weight 2022-09-25 14:16:00 85.049 kg [facility] BMI 2022-09-25 14:16:00 36.62 kg/m2 [facility] Systolic blood pressure 2022-09-20 20:11:00 118 mm[Hg] [facility] Diastolic blood pressure 2022-09-20 20:11:00 76 mm[Hg] [facility] Heart rate 2022-09-20 20:11:00 82 /min [facility] Body temperature 2022-09-20 20:11:00 36.44 [place] [facility] Respiratory rate 2022-09-20 20:11:00 17 /min [facility] Body height 2022-09-20 20:11:00 152.4 cm [facility] Body weight 2022-09-20 20:11:00 84.052 kg [facility] BMI 2022-09-20 20:11:00 36.19 kg/m2 [facility] Systolic blood pressure 2022-09-16 01:29:00 126 mm[Hg] [facility] Diastolic blood pressure 2022-09-16 01:29:00 82 mm[Hg] [facility] Heart rate 2022-09-16 01:29:00 67 /min [facility] Body temperature 2022-09-16 01:29:00 36.5 [place] [facility] Respiratory rate 2022-09-16 01:29:00 18 /min [facility] Body height 2022-09-16 01:29:00 152.4 cm [facility] Body weight 2022-09-16 01:29:00 83.099 kg [facility] BMI 2022-09-16 01:29:00 35.78 kg/m2 [facility] Oxygen saturation in Arterial blood by Pulse oximetry 2022-09-16 01:29:00 100 /min [facility] Systolic blood pressure 2022-09-13 19:02:00 118 mm[Hg] [facility] Diastolic blood pressure 2022-09-13 19:02:00 73 mm[Hg] [facility] Heart rate 2022-09-13 19:02:00 77 /min [facility] Body temperature 2022-09-13 19:02:00 36.17 [place] [facility] Respiratory rate 2022-09-13 19:02:00 18 /min [facility] Body weight 2022-09-13 19:02:00 83.326 kg [facility] BMI 2022-09-13 19:02:00 35.88 kg/m2 [facility] Systolic blood pressure 2022-08-29 14:21:00 106 mm[Hg] [facility] Diastolic blood pressure 2022-08-29 14:21:00 62 mm[Hg] [facility] Heart rate 2022-08-29 14:21:00 74 /min [facility] Body temperature 2022-08-29 14:21:00 36.5 [place] [facility] Respiratory rate 2022-08-29 14:21:00 17 /min [facility] Body height 2022-08-29 14:21:00 152.4 cm [facility] Body weight 2022-08-29 14:21:00 82.827 kg [facility] BMI 2022-08-29 14:21:00 35.66 kg/m2 [facility] Heart rate 2022-08-23 14:00:00 82 /min [facility] Oxygen saturation in Arterial blood by Pulse oximetry 2022-08-23 14:00:00 100 /min [facility] Systolic blood pressure 2022-08-23 13:23:00 116 mm[Hg] [facility] Diastolic blood pressure 2022-08-23 13:23:00 78 mm[Hg] [facility] Body temperature 2022-08-23 13:23:00 36.83 [place] [facility] Respiratory rate 2022-08-23 13:23:00 20 /min [facility] Body height 2022-08-23 13:02:00 152.4 cm [facility] Body weight 2022-08-23 13:02:00 80.831 kg [facility] BMI 2022-08-23 13:02:00 34.80 kg/m2 [facility] Systolic blood pressure 2022-08-16 14:12:00 117 mm[Hg] [facility] Diastolic blood pressure 2022-08-16 14:12:00 68 mm[Hg] [facility] Heart rate 2022-08-16 14:12:00 79 /min [facility] Respiratory rate 2022-08-16 14:12:00 17 /min [facility] Body height 2022-08-16 14:12:00 152.4 cm [facility] Body weight 2022-08-16 14:12:00 81.874 kg [facility] BMI 2022-08-16 14:12:00 35.25 kg/m2 [facility] Systolic blood pressure 2022-08-10 21:27:00 111 mm[Hg] [facility] Diastolic blood pressure 2022-08-10 21:27:00 69 mm[Hg] [facility] Heart rate 2022-08-10 21:27:00 73 /min [facility] Body temperature 2022-08-10 21:27:00 36.33 [place] [facility] Respiratory rate 2022-08-10 21:27:00 18 /min [facility] Body weight 2022-08-10 21:27:00 82.283 kg [facility] BMI 2022-08-10 21:27:00 35.43 kg/m2 [facility] Systolic blood pressure 2022-08-01 16:00:00 117 mm[Hg] [facility] Diastolic blood pressure 2022-08-01 16:00:00 66 mm[Hg] [facility] Heart rate 2022-08-01 16:00:00 87 /min [facility] Body temperature 2022-08-01 16:00:00 36.44 [place] [facility] Respiratory rate 2022-08-01 16:00:00 17 /min [facility] Body height 2022-08-01 16:00:00 152.4 cm [facility] Body weight 2022-08-01 16:00:00 80.876 kg [facility] BMI 2022-08-01 16:00:00 34.82 kg/m2 [facility] Systolic blood pressure 2022-07-18 13:52:00 111 mm[Hg] [facility] Diastolic blood pressure 2022-07-18 13:52:00 63 mm[Hg] [facility] Heart rate 2022-07-18 13:52:00 80 /min [facility] Body temperature 2022-07-18 13:52:00 36.28 [place] [facility] Respiratory rate 2022-07-18 13:52:00 17 /min [facility] Body height 2022-07-18 13:52:00 152.4 cm [facility] Body weight 2022-07-18 13:52:00 81.693 kg [facility] BMI 2022-07-18 13:52:00 35.17 kg/m2 [facility] Systolic blood pressure 2022-07-04 13:15:00 114 mm[Hg] [facility] Diastolic blood pressure 2022-07-04 13:15:00 71 mm[Hg] [facility] Heart rate 2022-07-04 13:15:00 76 /min [facility] Body temperature 2022-07-04 13:15:00 36.39 [place] [facility] Respiratory rate 2022-07-04 13:15:00 18 /min [facility] Body height 2022-07-04 13:15:00 152.4 cm [facility] Body weight 2022-07-04 13:15:00 80.003 kg [facility] BMI 2022-07-04 13:15:00 34.45 kg/m2 [facility] Systolic blood pressure 2022-06-20 14:28:00 120 mm[Hg] [facility] Diastolic blood pressure 2022-06-20 14:28:00 73 mm[Hg] [facility] Heart rate 2022-06-20 14:28:00 76 /min [facility] Body temperature 2022-06-20 14:28:00 36.11 [place] [facility] Respiratory rate 2022-06-20 14:28:00 18 /min [facility] Body height 2022-06-20 14:28:00 152.4 cm [facility] Body weight 2022-06-20 14:28:00 78.727 kg [facility] BMI 2022-06-20 14:28:00 33.90 kg/m2 [facility] Systolic blood pressure 2022-06-13 20:04:00 108 mm[Hg] [facility] Diastolic blood pressure 2022-06-13 20:04:00 63 mm[Hg] [facility] Heart rate 2022-06-13 20:04:00 71 /min [facility] Body temperature 2022-06-13 20:04:00 36.17 [place] [facility] Respiratory rate 2022-06-13 20:04:00 18 /min [facility] Body height 2022-06-13 20:04:00 152.4 cm [facility] Body weight 2022-06-13 20:04:00 78.699 kg [facility] BMI 2022-06-13 20:04:00 33.88 kg/m2 [facility] Procedures Procedure Date / Time Performed Performing Clinician Source POCT TEST 2024-09-23 14:45:00 Nikolay Pak [facility] POCT URINALYSIS W/O SPECIFIC GRAVITY 2024-09-23 14:45:00 Mary Pak [facility] GARDASIL 9 (HPV 9V) VACCINE 2024-01-15 15:10:54 Mary Pak [facility] GARDASIL 9 (HPV 9V) VACCINE 2023-08-09 14:41:13 Mary Pak [facility] URINE CULTURE 2023-05-15 15:14:00 Abdifatah Jaimes [facility] US PELVIS COMPLETE WITH TRANSVAGINAL 2023-05-14 20:48:20 Piotr Winkler [facility] ADC CLC OR LCC ONLY - WET PREP 2023-05-14 19:56:00 Piotr Winkler [facility] CT ABDOMEN PELVIS W CONTRAST 2023-05-14 18:36:50 Piotr Winkler [facility] POCT TEST 2023-05-14 18:01:00 Shea Winkler [facility] URINALYSIS 2023-05-14 17:54:00 [facility] LIPASE 2023-05-14 17:44:00 [facility] COMP. METABOLIC PANEL (59545) 2023-05-14 17:44:00 Piotr Winkler [facility] CBC WITH DIFF 2023-05-14 17:44:00 Piotr Winkler [facility] HIV 1/2 AG-AB WITH REFLEX 2023-05-14 17:44:00 Piotr Winkler [facility] CONSENT/REFUSAL FOR DIAGNOSIS AND TREATMENT 2023-05-14 16:24:52 Doctor Unassigned, [place] [facility] CBC WITH DIFF 2022-11-28 20:33:00 Mary Pak [facility] GC & CHLAMYDIA AMPLIFIED ASSAY 2022-11-28 17:39:00 Mary Pak [facility] PATIENT FINANCIAL POLICY 2022-11-28 16:12:37 Doctor Unassigned, [place] [facility] POCT TEST 2022-11-28 00:00:00 Nikolay Pak [facility] CBC WITHOUT DIFF 2022-10-14 22:15:00 Gibran Persaud [facility] TRANSFUSE PACKED RBC 2022-10-14 16:10:00 Mendez York [facility] PREPARE PACKED RBC 2022-10-14 15:50:25 Philly York [facility] CBC WITHOUT DIFF 2022-10-14 10:00:00 Deanne Copeland [facility] CBC WITH DIFF 2022-10-14 07:54:00 Julissa Adams [facility] VENOUS CORD GAS 2022-10-13 12:07:00 Reshma Longoria [facility] CENTRAL NEURAXIAL BLOCK 2022-10-13 05:32:00 Aaron Duggan [facility] SGOT (ASPARTATE AMINO TRANSFER) 2022-10-12 16:13:00 Swati [facility] CREATININE 2022-10-12 16:13:00 Swati [facility] ALANINE AMINO TRANSFERASE(SGPT 2022-10-12 16:13:00 Swati [facility] URIC ACID 2022-10-12 16:13:00 Swati [facility] PROTEIN CREAT RATIO URINE RANDOM 2022-10-12 16:13:00 Reshma Longoria [facility] CBC WITH DIFF 2022-10-12 16:12:00 Reshma Longoria [facility] HEPATITIS B SURFACE ANTIGEN 2022-10-12 16:12:00 Swati [facility] HIV 1/2 AG-AB WITH REFLEX 2022-10-12 16:12:00 Swati [facility] SYPHILIS IGG/IGM 2022-10-12 16:12:00 Swati [facility] HB ABO GROUPING 2022-10-12 15:57:00 Reshma Longoria [facility] RHO (D) IMMUNE GLOBULIN 2022-10-12 15:57:00 Skylar Mart [facility] HOSPITAL ADMISSION 2022-10-12 06:01:00 Doctor Un assigned, [place] [facility] POCT URINALYSIS 2022-10-11 00:00:00 Driss Saez [facility] POCT URINALYSIS 2022-10-02 14:41:00 Driss Saez [facility] POCT URINALYSIS 2022-09-25 15:10:00 Driss Saez [facility] POCT URINALYSIS 2022-09-20 21:34:00 Driss Saez [facility] NOTICE OF PRIVACY PRACTICES 2022-09-16 01:01:37 Doctor Unassigned, [place] [facility] CONSENT/REFUSAL FOR DIAGNOSIS AND TREATMENT 2022-09-16 00:58:12 Doctor Unassigned, [place] [facility] POCT URINALYSIS 2022-09-13 19:05:00 Driss Saez [facility] POCT URINALYSIS 2022-08-29 00:00:00 Driss Saez [facility] ASSIGNMENT OF BENEFITS 2022-08-23 12:53:12 Docto r Unassigned, [place] [facility] CONSENT/REFUSAL FOR DIAGNOSIS AND TREATMENT 2022-08-23 12:50:48 Doctor Unassigned, [place] [facility] AUTHORIZATION FOR RELEASE OF PHI 2022-08-23 06:01:00 Doctor Unassigned, [place] [facility] L&D VISIT (NON-DELIVERED) 2022-08-23 06:01:00 Doctor Unassigned, [place] [facility] URINE CULTURE 2022-08-16 17:11:00 Maribel Ernst [facility] POCT URINALYSIS 2022-08-16 00:00:00 Driss Saez [facility] STERILIZATION CONSENT FORM 2022-08-10 06:01:00 Doctor Unassigned, [place] [facility] URINE CULTURE 2022-08-01 16:55:00 Mary Pak [facility] GC & CHLAMYDIA AMPLIFIED ASSAY 2022-08-01 16:55:00 Mary Pak [facility] HIV 1/2 AG-AB WITH REFLEX 2022-08-01 16:55:00 Mary Pak [facility] GALV ONLY - SYPHILIS IGG/IGM 2022-08-01 16:55:00 Mary Pak [facility] TDAP VACCINE, >11 YRS, IM 2022-08-01 16:26:56 Mary Pak [facility] STERILIZATION CONSENT FORM 2022-08-01 06:01:00 Doctor Unassigned, [place] [facility] POCT URINALYSIS W/O SPECIFIC GRAVITY 2022-07-18 14:40:00 Cat Fairbanks [facility] POCT URINALYSIS 2022-07-04 13:20:00 Driss Saez [facility] POCT URINALYSIS 2022-06-20 14:30:00 Driss Saez [facility] [id number] 2021-03-05 00:00:00 [facility] [id number] 2021-03-05 00:00:00 [facility] Encounters Start Date/Time End Date/Time Encounter Type Admission Type Attending Clinicians Care Facility Care Department Encounter ID Source 2021-07-25 00:48:03 Outpatient P [facility] [id number] [facility] 2021-07-25 00:47:26 Emergency [facility] [id number] [facility] 2024-11-04 09:15:00 2024-11-04 09:15:00 Outpatient P [facility] [id number] [facility] 2024-10-10 00:00:00 2024-10-10 10:44:18 Telephone Mary Pak [facility] SENIOR BUSINESS PROCESS [facility] 1.2.840.114 350.1.13.10 4.2.7.2.686 [id number] [facility] 2024-09-23 08:45:00 2024-09-23 09:39:53 Outpatient R MARIBEL ERNST [facility] [id number] [facility] 2024-09-23 08:45:00 2024-09-23 09:39:53 Initial Visit Maribel Ernst [facility] SENIOR BUSINESS PROCESS [facility] & [facility]ILD [facility] 1.0.114 350.1.13.10 4.2.7.2.686 [id number] [facility] 2024-04-17 16:00:00 2024-04-17 16:10:58 Outpatient R AISHA NARANJO [facility] [id number] [facility] 2024-04-17 16:00:00 2024-04-17 16:10:58 Office Visit Aisha Naranjo [facility] SENIOR BUSINESS PROCESS [facility] & [facility]ILD [facility] 1.840.114 350.1.13.10 4.2.7.2.686 [id number] [facility] 2024-01-15 09:45:00 2024-01-15 10:46:53 Outpatient R MARY PAK [facility] [id number] [facility] 2024-01-15 09:30:00 2024-01-15 10:46:45 Outpatient R MARY PAK [facility] [id number] [facility] 2024-01-15 09:30:00 2024-01-15 10:46:45 Office Visit Mary Pak [facility] SENIOR BUSINESS PROCESS [facility]ILD [facility] ..114 350.1.13.10 4.2.7.2.686 [id number] [facility] 2024-01-15 09:45:00 2024-01-15 10:00:00 Nurse Visit Nurse, Darrell Rmchkristal Rgv Cprit Obgyn Mary Pak [facility] SENIOR BUSINESS PROCESS [facility]ILD [facility] 1.840.114 350.1.13.10 4.2.7.2.686 [id number] [facility] 2024-01-15 09:15:00 2024-01-15 09:15:00 Outpatient R GRACIELASHREYASGRACIAMARY [facility] [id number] [facility] 2023-11-27 09:00:00 2023-11-27 09:00:00 Outpatient R [facility] [id number] [facility] 2023-08-09 08:30:00 2023-08-09 08:42:15 Outpatient R MARIBEL ERNST [facility] [id number] [facility] 2023-08-09 08:30:00 2023-08-09 08:42:15 Nurse Visit Nurse, Darrell Rmchp Rgv Cprit ObMaribel Greenwood [facility] SENIOR BUSINESS PROCESS [facility] ..840.114 350.1.13.10 4.2.7.2.686 [id number] [facility] 2023-08-02 10:00:00 2023-08-02 10:00:00 Outpatient R [facility] [id number] [facility] 2023-07-24 09:00:00 2023-07-24 09:00:00 Outpatient R [facility] [id number] [facility] 2023-07-17 15:15:00 2023-07-17 15:15:00 Outpatient R [facility] [id number] [facility] 2023-06-25 07:45:00 2023-06-25 07:45:00 Outpatient R JUANSISHREYASBROCKMARY [facility] [id number] [facility] 2023-06-14 08:15:00 2023-06-14 08:15:00 Outpatient R AKINSIMARY HAMLIN [facility] [id number] [facility] 2023-05-16 00:00:00 2023-05-16 00:00:00 Telephone Abdifatah Jaimes [facility] 840.114 350.1.13.10 4.2.7.2.686 [id number] [facility] 2023-05-15 09:45:00 2023-05-15 10:18:31 Outpatient R SARA ABDIFATAH [facility] [id number] [facility] 2023-05-15 09:45:00 2023-05-15 10:18:31 Office Visit Abdifatah Jaimes [facility] 1..840.114 350.1.13.10 4.2.7.2.686 [id number] [facility] 2023-05-14 11:34:00 2023-05-14 16:29:00 Emergency X PIOTR WINKLER [facility] [id number] [facility] 2023-05-14 11:34:00 2023-05-14 16:29:00 Emergency Piotr Winkler [facility] 1..840.114 350.1.13.10 4.2.7.2.686 [id number] [facility] 2023-05-14 00:00:00 2023-05-14 00:00:00 Telephone Mary Pak [facility] SENIOR BUSINESS PROCESS [facility] 1..840.114 350.1.13.10 4.2.7.2.686 [id number] [facility] 2023-02-27 09:30:00 2023-02-27 09:30:00 Outpatient R [facility] [id number] [facility] 2023-01-26 09:45:00 2023-01-26 09:45:00 Outpatient R MARY PAK [facility] [id number] [facility] 2023-01-15 09:30:00 2023-01-15 10:06:58 Outpatient R MARY PAK [facility] [id number] [facility] 2023-01-15 09:30:00 2023-01-15 10:06:58 Office Visit Mary Pak [facility] SENIOR BUSINESS PROCESS [facility]ILD [facility] 1.2.840.114 350.1.13.10 4.2.7.2.686 [id number] [facility] 2023-01-12 13:30:00 2023-01-12 13:30:00 Outpatient R MARY PAK [facility] [id number] [facility] 2023-01-12 13:15:00 2023-01-12 13:15:00 Outpatient R MARY PAK [facility] [id number] [facility] 2022-12-25 15:45:00 2022-12-25 15:45:00 Office Visit Maribel Ernst [facility] SENIOR BUSINESS PROCESS [facility]ILD [facility] 1.840.114 350.1.13.10 4.2.7.2.686 [id number] [facility] 2022-12-25 15:45:00 2022-12-25 15:32:40 Outpatient R MARIBEL ERNST [facility] [id number] [facility] 2022-12-22 15:00:00 2022-12-22 15:00:00 Outpatient R MARIBEL ERNST [facility] [id number] [facility] 2022-12-11 00:00:00 2022-12-11 00:00:00 Telephone Mary Pak [facility] SENIOR BUSINESS PROCESS [facility] 1.0.114 350.1.13.10 4.2.7.2.686 [id number] [facility] 2022-12-04 00:00:00 2022-12-04 00:00:00 Telephone Mary Pak [facility] SENIOR BUSINESS PROCESS [facility]ILD [facility] 1.2840.114 350.1.13.10 4.2.7.2.686 [id number] [facility] 2022-11-28 10:00:00 2022-11-28 11:17:00 Outpatient R MARY PAK [facility] [id number] [facility] 2022-11-28 10:00:00 2022-11-28 11:17:00 Office Visit Mary Pak [facility] SENIOR BUSINESS PROCESS [facility]ILD [facility] 1..840.114 350.1.13.10 4.2.7.2.686 [id number] [facility] 2022-11-28 10:00:00 2022-11-28 10:00:00 Outpatient R MARY PAK [facility] [id number] [facility] 2022-11-28 00:00:00 2022-11-28 00:00:00 Orders Only Doctor Unassigned, [place] [facility] 1..840.114 350.1.13.10 4.2.7.2.686 [id number] [facility] 2022-11-03 08:00:00 2022-11-03 08:42:39 Outpatient R MARY PAK [facility] [id number] [facility] 2022-11-03 08:00:00 2022-11-03 08:42:39 Routine Visit Mary Pak [facility] SENIOR BUSINESS PROCESS [facility]ILD [facility] ..840.114 350.1.13.10 4.2.7.2.686 [id number] 107 [id number] [facility] 2022-11-01 14:00:00 2022-11-01 14:00:00 Outpatient R MARY PAK [facility] [id number] [facility] 2022-10-12 07:58:00 2022-10-14 20:30:00 Inpatient X TY MARIEE [facility] [id number] [facility] 2022-10-12 07:58:00 2022-10-14 20:30:00 Hospital Encounter Morris Maldonadolatoya Ty rollins [facility] 1.2.840.114 350.1.13.10 4.2.7.2.686 [id number] [facility] 2022-10-13 11:48:13 2022-10-13 11:48:13 Anesthesia Event Aaron Duggan [facility] 1.2.840.114 350.1.13.10 4.2.7.2.686 [id number] [facility] 2022-10-12 23:17:00 2022-10-13 07:23:00 Anesthesia Event Aaron Duggan Yossi Julian [facility] 1.2.840.114 350.1.13.10 4.2.7.2.686 [id number] [facility] 2022-10-12 00:00:00 2022-10-12 00:00:00 Orders Only Doctor Unassigned, [place] [facility] 1.2.840.114 350.1.13.10 4.2.7.2.686 [id number] [facility] 2022-10-11 15:45:00 2022-10-11 16:11:26 Outpatient R MARY PAK [facility] [id number] [facility] 2022-10-11 15:45:00 2022-10-11 16:11:26 Routine Visit Mary Pak [facility] SENIOR BUSINESS PROCESS [facility] CHILD [facility] 1.2.840.114 350.1.13.10 4.2.7.2.686 [id number] [facility] 2022-10-02 08:45:00 2022-10-02 09:00:00 Routine Visit Mary Pak [facility] SENIOR BUSINESS PROCESS [facility] 1.2.840.114 350.1.13.10 4.2.7.2.686 [id number] [facility] 2022-10-02 08:45:00 2022-10-02 08:45:00 Outpatient R MARY PAK [facility] [id number] [facility] 2022-09-25 09:00:00 2022-09-25 09:00:00 Routine Visit Mary Pak [facility] SENIOR BUSINESS PROCESS [facility]ILD [facility] 1..840.114 350.1.13.10 4.2.7.2.686 [id number] [facility] 2022-09-25 09:00:00 2022-09-25 08:55:09 Outpatient R MARY PAK [facility] [id number] [facility] 2022-09-21 00:00:00 2022-09-21 00:00:00 Telephone Mary Pak [facility] SENIOR BUSINESS PROCESS [facility] 1..840.114 350.1.13.10 4.2.7.2.686 [id number] [facility] 2022-09-20 14:30:00 2022-09-20 14:41:11 Outpatient R MARY PAK [facility] [id number] [facility] 2022-09-20 14:30:00 2022-09-20 14:41:11 Routine Visit Mary Pak [facility] SENIOR BUSINESS PROCESS [facility] ..840.114 350.1.13.10 4.2.7.2.686 [id number] [facility] 2022-09-15 19:08:00 2022-09-15 21:45:00 Outpatient X JIA KOHLER [facility] [id number] [facility] 2022-09-15 19:08:00 2022-09-15 21:45:00 Emergency Adum, Jia Leary [facility] 1.2.840.114 350.1.13.10 4.2.7.2.686 [id number] [facility] 2022-09-15 00:00:00 2022-09-15 00:00:00 Orders Only Doctor Unassigned, [place] [facility] 1.2.840.114 350.1.13.10 4.2.7.2.686 [id number] [facility] 2022-09-13 09:45:00 2022-09-13 13:26:26 Outpatient R MARY PAK [facility] [id number] [facility] 2022-09-13 09:45:00 2022-09-13 13:26:26 Routine Visit Mary Pak [facility] SENIOR BUSINESS PROCESS [facility]ILD [facility] 1.2.840.114 350.1.13.10 4.2.7.2.686 [id number] [facility] 2022-09-13 00:00:00 2022-09-13 00:00:00 Telephone Mary Pak [facility] SENIOR BUSINESS PROCESS [facility]ILD [facility] 1.2.840.114 350.1.13.10 4.2.7.2.686 [id number] [facility] 2022-09-12 00:00:00 2022-09-12 00:00:00 Telephone Mary Pak [facility] SENIOR BUSINESS PROCESS [facility]ILD [facility] 1.2.840.114 350.1.13.10 4.2.7.2.686 [id number] [facility] 2022-09-05 15:30:00 2022-09-05 15:30:00 Outpatient R MARY PAK [facility] [id number] [facility] 2022-08-31 00:00:00 2022-08-31 00:00:00 Telephone Mary aPk [facility] SENIOR BUSINESS PROCESS [facility] CHILD [facility] 1.2840.114 350.1.13.10 4.2.7.2.686 [id number] [facility] 2022-08-29 08:00:00 2022-08-29 08:43:29 Outpatient R MARIBEL ERNST [facility] [id number] [facility] 2022-08-29 08:00:00 2022-08-29 08:43:29 Routine Visit Provider, Maribel Brenner [facility] SENIOR BUSINESS PROCESS [facility] 1.2840.114 350.1.13.10 4.2.7.2.686 [id number] [facility] 2022-08-24 00:00:00 2022-08-24 00:00:00 Telephone Provider, Natty Kat [facility] SENIOR BUSINESS PROCESS [facility] 1.0.114 350.1.13.10 4.2.7.2.686 [id number] [facility] 2022-08-23 07:05:00 2022-08-23 08:20:00 Outpatient X ADJIA [facility] [id number] [facility] 2022-08-23 07:05:00 2022-08-23 08:20:00 Emergency AdJia rockwell [facility] 1.0.114 350.1.13.10 4.2.7.2.686 [id number] [facility] 2022-08-23 00:00:00 2022-08-23 00:00:00 Orders Only Doctor Unassigned, [place] [facility] 1.840.114 350.1.13.10 4.2.7.2.686 [id number] [facility] 2022-08-22 16:00:00 2022-08-22 16:00:00 Outpatient MARIBEL MARAVILLA [facility] [id number] [facility] 2022-08-16 08:00:00 2022-08-16 08:42:40 Outpatient MARIBEL MARAVILLA [facility] [id number] [facility] 2022-08-16 08:00:00 2022-08-16 08:42:40 Routine Visit Provider, Maribel Brenner [facility] SENIOR BUSINESS PROCESS [facility] 1..840.114 350.1.13.10 4.2.7.2.686 [id number] [facility] 2022-08-10 15:30:00 2022-08-10 15:30:00 Nurse Visit Visit, Mary Monroy [facility] SENIOR BUSINESS PROCESS [facility] 1..840.114 350.1.13.10 4.2.7.2.686 [id number] [facility] 2022-08-10 15:30:00 2022-08-10 15:24:09 Outpatient MARY [facility] [id number] [facility] 2022-08-10 00:00:00 2022-08-10 00:00:00 Orders Only Doctor Unassigned, [place] [facility] 1..840.114 350.1.13.10 4.2.7.2.686 [id number] [facility] 2022-08-08 14:30:00 2022-08-08 14:30:00 Outpatient MARY [facility] [id number] [facility] 2022-08-01 10:30:00 2022-08-01 10:53:27 Outpatient MARY [facility] [id number] [facility] 2022-08-01 10:30:00 2022-08-01 10:53:27 Routine Visit Mary Pak [facility] SENIOR BUSINESS PROCESS [facility]ERNAL & CHILD [facility] 1..114 350.1.13.10 4.2.7.2.686 [id number] 107 [id number] [facility] 2022-08-01 00:00:00 2022-08-01 00:00:00 Orders Only Doctor Unassigned, [place] [facility] 1..114 350.1.13.10 4.2.7.2.686 [id number] [facility] 2022-07-20 00:00:00 2022-07-20 00:00:00 Telephone Mary Pak [facility] SENIOR BUSINESS PROCESS [facility] & CHILD [facility] 1.84.114 350.1.13.10 4.2.7.2.686 [id number] 107 [id number] [facility] 2022-07-18 15:30:00 2022-07-18 15:30:00 Outpatient DRISS HA [facility] [id number] [facility] 2022-07-18 15:30:00 2022-07-18 15:30:00 Outpatient DRISS HA [facility] [id number] [facility] 2022-07-18 08:45:00 2022-07-18 09:29:50 Outpatient DRISS HA [facility] [id number] [facility] 2022-07-18 08:45:00 2022-07-18 09:29:50 Routine Visit Provider, JesuschDriss Batres [facility] SENIOR BUSINESS PROCESS [facility] & CHILD [facility] 1..114 350.1.13.10 4.2.7.2.686 [id number] 107 [id number] [facility] 2022-07-11 14:00:00 2022-07-11 14:00:00 Outpatient R MARY PA[facility] [id number] [facility] 2022-07-04 08:00:00 2022-07-04 08:46:38 Outpatient R MARY PAK [facility] [id number] [facility] 2022-07-04 08:00:00 2022-07-04 08:46:38 Routine Visit Mary Pak Celine [facility] SENIOR BUSINESS PROCESS [facility] & CHILD [facility] ..840.114 350.1.13.10 4.2.7.2.686 [id number] 107 [id number] [facility] 2022-06-30 09:30:00 2022-06-30 09:30:00 Outpatient R MARY PAK [facility] [id number] [facility] 2022-06-28 13:30:00 2022-06-28 13:30:00 Outpatient R MARY PAK [facility] [id number] [facility] 2022-06-22 14:15:00 2022-06-22 14:15:00 Outpatient P [facility] [id number] [facility] 2022-06-22 08:30:00 2022-06-22 08:52:58 Outpatient P ESTEFANY BLACKMAN [facility] [id number] [facility] 2022-06-22 08:30:00 2022-06-22 08:52:58 Heel Wheeler Visit Ultrasound, Darrell-MfEstefany Dumont Ikuvbogilizeth [facility] SENIOR BUSINESS PROCESS [facility] & CHILD [facility] ..840.114 350.1.13.10 4.2.7.2.686 [id number] [facility] 2022-06-22 08:30:00 2022-06-22 08:30:00 Outpatient P ESTEFANY BLACKMAN [facility] [id number] [facility] 2022-06-22 00:00:00 2022-06-22 00:00:00 Abstract Driss Saez Josse [facility] SENIOR BUSINESS PROCESS [facility] & CHILD [facility] 1.2.840.114 350.1.13.10 4.2.7.2.686 [id number] [facility] 2022-06-20 14:30:00 2022-06-20 14:30:00 Outpatient R MARY PAK [facility] [id number] [facility] 2022-06-20 08:00:00 2022-06-20 09:54:58 Outpatient R MARY PAK [facility] [id number] [facility] 2022-06-20 08:00:00 2022-06-20 09:54:58 Routine Visit Mary Pak [facility] SENIOR BUSINESS PROCESS [facility] & CHILD [facility] 1.2.840.114 350.1.13.10 4.2.7.2.686 [id number] 107 [id number] [facility] 2022-06-20 00:00:00 2022-06-20 00:00:00 Telephone Mary Pak [facility] SENIOR BUSINESS PROCESS [facility] & CHILD [facility] 1.2.840.114 350.1.13.10 4.2.7.2.686 [id number] 107 [id number] [facility] 2022-06-15 09:30:00 2022-06-15 10:00:00 Heel Wheeler Visit Ultrasound, Estefany Vega [facility] SENIOR BUSINESS PROCESS [facility] & CHILD [facility] 1..840.114 350.1.13.10 4.2.7.2.686 [id number] [facility] 2022-06-15 09:30:00 2022-06-15 09:30:00 Outpatient ESTEFANY SCHROEDER [facility] [id number] [facility] 2022-06-15 09:30:00 2022-06-15 09:30:00 Outpatient P ESTEFANY BLACKMAN [facility] [id number] [facility] 2022-06-15 00:00:00 2022-06-15 00:00:00 Abstract Driss Saez Josse [facility] SENIOR BUSINESS PROCESS [facility] & CHILD [facility] 1.2.840.114 350.1.13.10 4.2.7.2.686 [id number] 107 [id number] [facility] 2022-06-15 00:00:00 2022-06-15 00:00:00 Telephone Mary Pak [facility] SENIOR BUSINESS PROCESS [facility] CHILD [facility] 1..840.114 350.1.13.10 4.2.7.2.686 [id number] 107 [id number] [facility] 2022-06-13 15:00:00 2022-06-13 15:27:32 [facility] Pak [facility] SENIOR BUSINESS PROCESS [facility] CHILD [facility] 1..840.114 350.1.13.10 4.2.7.2.686 [id number] [facility] 2022-06-13 15:00:00 2022-06-13 15:00:00 Outpatient R MARY PAK [facility] [id number] [facility] 2022-06-09 00:00:00 2022-06-09 00:00:00 Telephone Mary Pak [facility] SENIOR BUSINESS PROCESS [facility] & CHILD [facility] 1..840.114 350.1.13.10 4.2.7.2.686 [id number] 107 [id number] [facility] 2022-06-08 15:15:00 2022-06-08 15:15:00 Outpatient P [facility] [id number] [facility] 2022-06-08 00:00:00 2022-06-08 00:00:00 Telephone Mary Pak [facility] SENIOR BUSINESS PROCESS [facility] 1.2.840.114 350.1.13.10 4.2.7.2.686 [id number] [facility] 2022-06-06 15:15:00 2022-06-06 15:47:09 Outpatient R MARY PAK [facility] [id number] [facility] 2022-06-06 15:15:00 2022-06-06 15:47:09 Routine Visit Mary Pak [facility] SENIOR BUSINESS PROCESS [facility] & CHILD [facility] 1.2.840.114 350.1.13.10 4.2.7.2.686 [id number] [facility] 2022-06-06 15:00:00 2022-06-06 15:00:00 Outpatient R DRISS SAEZ [facility] [id number] [facility] 2022-06-06 00:00:00 2022-06-06 00:00:00 Telephone Mary Pak [facility] SENIOR BUSINESS PROCESS [facility] CHILD [facility] 1.2840.114 350.1.13.10 4.2.7.2.686 [id number] 107 [id number] [facility] 2022-06-05 00:00:00 2022-06-05 00:00:00 Abstract Driss Saez [facility] SENIOR BUSINESS PROCESS [facility] CHILD [facility] 1.2.840.114 350.1.13.10 4.2.7.2.686 [id number] 107 [id number] [facility] 2022-06-05 00:00:00 2022-06-05 00:00:00 Telephone Mary Pak [facility] SENIOR BUSINESS PROCESS [facility] 1.2.840.114 350.1.13.10 4.2.7.2.686 [id number] [facility] 2022-05-31 09:00:00 2022-05-31 10:15:00 Heel Wheeler Visit Ultrasound, Bebo Sanon Corey [facility] SENIOR BUSINESS PROCESS [facility] MATERNAL & CHILD [facility] 1..840.114 350.1.13.10 4.2.7.2.686 [id number] [facility] 2022-05-31 09:00:00 2022-05-31 09:00:00 Outpatient P MOUSTAPHA POWERS [facility] [id number] [facility] 2022-05-31 08:45:00 2022-05-31 08:45:00 Outpatient P [facility] [id number] [facility] 2022-05-30 15:00:00 2022-05-30 15:34:44 Outpatient R MARY PAK [facility] [id number] [facility] 2022-05-30 15:00:00 2022-05-30 15:34:44 Routine Visit Mary Pak [facility] SENIOR BUSINESS PROCESS [facility] & CHILD [facility] .840.114 350.1.13.10 4.2.7.2.686 [id number] 107 [id number] [facility] 2022-05-26 00:00:00 2022-05-26 00:00:00 Abstract Mary Pak [facility] SENIOR BUSINESS PROCESS [facility] & CHILD [facility] 1..840.114 350.1.13.10 4.2.7.2.686 [id number] 107 [id number] [facility] 2022-05-26 00:00:00 2022-05-26 00:00:00 Telephone Mary Pak [facility] SENIOR BUSINESS PROCESS [facility] & CHILD [facility] 1.2.840.114 350.1.13.10 4.2.7.2.686 [id number] 107 [id number] [facility] 2022-05-25 15:15:00 2022-05-25 15:15:00 Outpatient P [facility] [id number] [facility] 2022-05-25 13:00:00 2022-05-25 13:45:00 Heel Wheeler Visit Ultrasound, Bebo Sanon [facility] SENIOR BUSINESS PROCESS [facility] & CHILD [facility] 1..114 350.1.13.10 4.2.7.2.686 [id number] [facility] 2022-05-25 13:00:00 2022-05-25 13:26:52 Out[facility] [id number] [facility] 2022-05-25 00:00:00 2022-05-25 00:00:00 Telephone Driss Saez [facility] SENIOR BUSINESS PROCESS [facility] & CHILD [facility] 1.840.114 350.1.13.10 4.2.7.2.686 [id number] 107 [id number] [facility] 2022-05-24 00:00:00 2022-05-24 00:00:00 Orders Only Doctor Unassigned, [place] [facility] ..114 350.1.13.10 4.2.7.2.686 [id number] [facility] 2022-05-23 08:30:00 2022-05-23 08:30:00 Outpatient R MARY PAK [facility] [id number] [facility] 2022-05-18 15:15:00 2022-05-18 15:15:00 Outpatient P [facility] [id number] [facility] 2022-05-18 13:30:00 2022-05-18 13:30:00 Outpatient P [facility] [id number] [facility] 2022-05-18 00:00:00 2022-05-18 00:00:00 Telephone Driss Saez [facility] SENIOR BUSINESS PROCESS [facility] CHILD [facility] ..114 350.1.13.10 4.2.7.2.686 [id number] 107 [id number] [facility] 2022-05-16 08:45:00 2022-05-16 08:59:50 Outpatient R SAEZ, ROSYAIR [facility] [id number] [facility] 2022-05-16 08:45:00 2022-05-16 08:59:50 Routine Visit SaezDriss [facility] SENIOR BUSINESS PROCESS [facility] MATERNAL & CHILD [facility] 1..840.114 350.1.13.10 4.2.7.2.686 [id number] 107 [id number] [facility] 2022-05-16 00:00:00 2022-05-16 00:00:00 Abstract Mario Saezeric Josse [facility] SENIOR BUSINESS PROCESS [facility] MATERNAL & CHILD [facility] 1..840.114 350.1.13.10 4.2.7.2.686 [id number] 107 [id number] [facility] 2022-05-14 04:30:00 2022-05-14 04:31:00 Emergency X JESUSITA HARTLEY [facility] ERT [id number] [facility] 2022-05-14 04:30:00 2022-05-14 04:31:00 Emergency Jesusita Hartley [facility] 1..840.114 350.1.13.10 4.2.7.2.686 [id number] [facility] 2022-05-11 08:00:00 2022-05-11 08:00:00 Outpatient P [facility] [id number] [facility] 2022-05-04 10:45:00 2022-05-04 12:36:11 Outpatient P CAT HARTLEY [facility] [id number] [facility] 2022-05-04 10:45:00 2022-05-04 12:36:11 Heel Wheeler [facility] Cat Hartley [facility] SENIOR BUSINESS PROCESS [facility] MATERNAL & CHILD [facility] 1.2840.114 350.1.13.10 4.2.7.2.686 [id number] [facility] 2022-04-18 08:45:00 2022-04-18 09:10:13 Outpatient R DRISS SAEZ [facility] [id number] [facility] 2022-04-18 08:45:00 2022-04-18 09:10:13 Routine Visit Driss Saez Josse [facility] SENIOR BUSINESS PROCESS [facility] MATERNAL & CHILD [facility] 1..840.114 350.1.13.10 4.2.7.2.686 [id number] 107 [id number] [facility] 2022-04-18 08:45:00 2022-04-18 08:45:00 Outpatient R ANNETTE SAEZERIC [facility] [id number] [facility] 2022-04-07 00:00:00 2022-04-07 00:00:00 Abstract Mary Pak [facility] SENIOR BUSINESS PROCESS [facility] & CHILD [facility] 1..840.114 350.1.13.10 4.2.7.2.686 [id number] 107 [id number] [facility] 2022-03-30 13:30:00 2022-03-30 14:45:00 Heel Wheeler Visit Ultrasound, Bebo Sanon [facility] SENIOR BUSINESS PROCESS [facility] & CHILD [facility] 1..840.114 350.1.13.10 4.2.7.2.686 [id number] [facility] 2022-03-30 13:30:00 2022-03-30 13:30:00 Outpatient P BEBO BOOKER SANGEETA [facility] [id number] [facility] 2022-03-30 13:30:00 2022-03-30 13:30:00 Outpatient P [facility] [id number] [facility] 2022-03-23 00:00:00 2022-03-23 00:00:00 Telephone Driss Saez [facility] SENIOR BUSINESS PROCESS [facility] MATERNAL & CHILD [facility] 1.2.840.114 350.1.13.10 4.2.7.2.686 [id number] 107 [id number] [facility] 2022-03-21 08:00:00 2022-03-21 08:53:51 Outpatient R DRISS SAEZ [facility] [id number] [facility] 2022-03-21 08:00:00 2022-03-21 08:53:51 Routine Visit Driss Saez [facility] SENIOR BUSINESS PROCESS [facility] & CHILD [facility] 1.2.840.114 350.1.13.10 4.2.7.2.686 [id number] 107 [id number] [facility] 2022-03-21 08:00:00 2022-03-21 08:00:00 Outpatient R DRISS SAEZ [facility] [id number] [facility] 2022-03-13 23:03:00 2022-03-14 02:31:00 Emergency X Abhilash POLLOCK [facility] ERT [id number] [facility] 2022-03-13 23:03:00 2022-03-14 02:31:00 Emergency Abhilash Pollock [facility] 1.2.840.114 350.1.13.10 4.2.7.2.686 [id number] [facility] 2022-03-06 09:30:00 2022-03-06 10:09:56 Outpatient R BEBO BOOKER SANGEETA [facility] [id number] [facility] 2022-03-06 09:30:00 2022-03-06 10:09:56 Outpatient R BEBO BOOKER SANGEETA [facility] [id number] [facility] 2022-03-06 09:30:00 2022-03-06 10:09:56 Office Visit Faculty, Bebo Martinez [facility] SENIOR BUSINESS PROCESS [facility] MATERNAL & CHILD [facility] 1.2.840.114 350.1.13.10 4.2.7.2.686 [id number] 107 [id number] [facility] 2022-03-06 00:00:00 2022-03-06 00:00:00 Telephone SaezDriss [facility] SENIOR BUSINESS PROCESS [facility] & CHILD [facility] 1.2.840.114 350.1.13.10 4.2.7.2.686 [id number] 107 [id number] [facility] 2022-03-06 00:00:00 2022-03-06 00:00:00 Telephone Annette Saezyair [facility] SENIOR BUSINESS PROCESS [facility] 1.2840.114 350.1.13.10 4.2.7.2.686 [id number] 107 [id number] [facility] 2022-02-22 00:00:00 2022-02-22 00:00:00 Orders Only Doctor Unassigned, [place] [facility] 1.2840.114 350.1.13.10 4.2.7.2.686 [id number] [facility] 2022-02-14 08:45:00 2022-02-14 10:54:01 Outpatient DRISS HA [facility] [id number] [facility] 2022-02-14 09:15:00 2022-02-14 10:53:47 Outpatient R DRISS SAEZ [facility] [id number] [facility] 2022-02-14 09:15:00 2022-02-14 10:53:47 Initial Visit Driss Saez [facility] SENIOR BUSINESS PROCESS [facility] CHILD [facility] 1.2840.114 350.1.13.10 4.2.7.2.686 [id number] 107 [id number] [facility] 2022-02-14 09:15:00 2022-02-14 10:53:47 Outpatient DRISS HA [facility] [id number] [facility] 2022-02-14 08:45:00 2022-02-14 08:45:00 [facility] [id number] 2022-02-14 00:00:00 2022-02-14 00:00:00 Orders Only Doctor Unassigned, [place] [facility] 1..840.114 350.1.13.10 4.2.7.2.686 [id number] [facility] 2022-01-12 10:20:00 2022-01-12 11:46:00 Emergency X PIOTR WINKLER [facility] ERT [id number] [facility] 2022-01-12 10:20:00 2022-01-12 11:46:00 Emergency X SINGER [facility] ERT [id number] [facility] 2022-01-12 10:20:00 2022-01-12 11:46:00 Emergency Piotr Winkler [facility] 1..840.114 350.1.13.10 4.2.7.2.686 [id number] [facility] 2022-01-12 10:20:00 2022-01-12 11:46:00 Emergency X SINGER [facility] ERT [id number] [facility] 2022-01-12 00:00:00 2022-01-12 00:00:00 Orders Only Doctor Unassigned, [place] [facility] 1..840.114 350.1.13.10 4.2.7.2.686 [id number] [facility] 2021-05-11 00:00:00 2021-05-11 00:00:00 Telephone Mary Pak [facility] SENIOR BUSINESS PROCESS [facility] MATERNAL & CHILD [facility] 1.840.114 350.1.13.10 4.2.7.2.686 [id number] 107 [id number] [facility] 2021-04-18 09:15:36 2021-04-18 09:30:36 Office Visit JuancelsaMary hamlin Celine [facility] SENIOR BUSINESS PROCESS [facility] & CHILD [facility] 1.840.114 350.1.13.10 4.2.7.2.686 [id number] 107 [id number] [facility] 2021-04-18 09:30:00 2021-04-18 09:30:00 Outpatient R MARY PAK [facility] [id number] [facility] 2021-04-18 09:00:00 2021-04-18 09:00:00 Outpatient R [facility] [id number] [facility] 2021-03-28 09:26:12 2021-03-28 10:03:16 Routine Visit Mary Pak [facility] SENIOR BUSINESS PROCESS [facility] & CHILD [facility] 1.840.114 350.1.13.10 4.2.7.2.686 [id number] 107 [id number] [facility] 2021-03-28 09:30:00 2021-03-28 09:30:00 Outpatient R MARY PAK [facility] [id number] [facility] 2021-03-23 08:00:00 2021-03-23 08:00:00 Outpatient R MARY PAK [facility] [id number] [facility] 2021-03-11 08:00:00 2021-03-11 08:00:00 Outpatient R MARY PAK [facility] [id number] [facility] 2021-03-11 00:00:00 2021-03-11 00:00:00 Orders Only Doctor Unassigned, [place] [facility] 1.840.114 350.1.13.10 4.2.7.2.686 [id number] [facility] 2021-03-05 00:01:00 2021-03-07 18:46:00 Inpatient Teodoro Chavez [facility] [id number] [facility] 2021-03-04 19:03:00 2021-03-04 22:32:00 Hospital Encounter Stevie Broderick [facility] 1.840.114 350.1.13.10 4.2.7.2.686 [id number] [facility] 2021-03-04 19:03:00 2021-03-04 22:32:00 Outpatient P STEVIE BRODERICK [facility] [id number] [facility] 2021-03-04 09:23:36 2021-03-04 09:49:17 Routine Visit Mary Pak [facility] SENIOR BUSINESS PROCESS [facility] & CHILD [facility] 1.840.114 350.1.13.10 4.2.7.2.686 [id number] [facility] 2021-03-04 09:30:00 2021-03-04 09:30:00 Outpatient R MARY PAK [facility] [id number] [facility] 2021-03-04 00:00:00 2021-03-04 00:00:00 Telephone Mary Pak [facility] SENIOR BUSINESS PROCESS [facility] MATERNAL & CHILD [facility] 1.840.114 350.1.13.10 4.2.7.2.686 [id number] 107 [id number] [facility] 2021-03-04 00:00:00 2021-03-04 00:00:00 Telephone Mary Pak [facility] SENIOR BUSINESS PROCESS [facility] & CHILD [facility] 1.840.114 350.1.13.10 4.2.7.2.686 [id number] 107 [id number] [facility] 2021-02-24 00:00:00 2021-02-24 00:00:00 Telephone Cat Hartley [facility] SENIOR BUSINESS PROCESS [facility] & CHILD [facility] 1.2.840.114 350.1.13.10 4.2.7.2.686 [id number] [facility] 2021-02-23 10:17:46 2021-02-23 10:47:28 Routine Visit Mary Pak [facility] SENIOR BUSINESS PROCESS [facility] & CHILD [facility] 1.2.840.114 350.1.13.10 4.2.7.2.686 [id number] [facility] 2021-02-23 10:15:00 2021-02-23 10:15:00 Outpatient R MARY PAK [facility] [id number] [facility] 2021-02-23 00:00:00 2021-02-23 00:00:00 Telephone Mary Pak [facility] SENIOR BUSINESS PROCESS [facility]ST [facility] CHILD [facility] 1.2.840.114 350.1.13.10 4.2.7.2.686 [id number] [facility] 2021-02-23 00:00:00 2021-02-23 00:00:00 Telephone Mary Pak [facility] SENIOR BUSINESS PROCESS [facility] CHILD [facility] 1.2.840.114 350.1.13.10 4.2.7.2.686 [id number] 107 [id number] [facility] 2021-02-18 12:52:07 2021-02-18 13:37:47 Routine Visit Mary Pak [facility] SENIOR BUSINESS PROCESS [facility] & CHILD [facility] 1.2.840.114 350.1.13.10 4.2.7.2.686 [id number] 107 [id number] [facility] 2021-02-18 12:45:00 2021-02-18 12:45:00 Outpatient R GRACIELASHREYASBROCKMARY [facility] [id number] [facility] 2021-01-28 00:00:00 2021-01-28 00:00:00 Abstract Mary Pak Celine [facility] SENIOR BUSINESS PROCESS [facility] & CHILD [facility] 1.2.840.114 350.1.13.10 4.2.7.2.686 [id number] 107 [id number] [facility] 2021-01-26 10:38:56 2021-01-26 12:06:16 Heel Wheeler Visit Ultrasound, Maricel Krause [facility] SENIOR BUSINESS PROCESS [facility] & CHILD [facility] 1.0.114 350.1.13.10 4.2.7.2.686 [id number] [facility] 2021-01-26 10:45:00 2021-01-26 10:45:00 Outpatient P [facility] [id number] [facility] 2021-01-21 12:48:25 2021-01-21 13:19:19 Routine Visit Pasha Mary C [facility] SENIOR BUSINESS PROCESS [facility] CHILD [facility] 1.0.114 350.1.13.10 4.2.7.2.686 [id number] 107 [id number] [facility] 2021-01-21 12:45:00 2021-01-21 12:45:00 Outpatient R MARY PAK [facility] [id number] [facility] 2021-01-11 10:30:00 2021-01-11 10:30:00 Outpatient R MARY PAK [facility] [id number] [facility] 2020-12-24 12:46:06 2020-12-24 13:29:21 Routine Visit Pasha Mary C [facility] SENIOR BUSINESS PROCESS [facility]NA[facility] & CHILD [facility] 1.2840.114 350.1.13.10 4.2.7.2.686 [id number] [facility] 2020-12-24 12:45:00 2020-12-24 12:45:00 Outpatient R MARY PAK [facility] [id number] [facility] 2020-12-24 00:00:00 2020-12-24 00:00:00 Telephone Mary Pak SENIOR BUSINESS PROCESS ANALYST [facility] MATERNAL & CHILD [facility] 1.2.840.114 350.1.13.10 4.2.7.2.686 [id number] 107 [id number] [facility] 2020-12-13 08:40:34 2020-12-13 09:52:59 Routine Visit Mary Pak VTJAZ SENIOR BUSINESS PROCESS [facility]NA[facility] & CHILD [facility] 1.2.840.114 350.1.13.10 4.2.7.2.686 [id number] 2020-12-13 08:40:34 2020-12-13 09:52:59 Routine Visit Mary Pak VTJAZ SENIOR BUSINESS PROCESS [facility]NA[facility] & CHILD [facility] 1.2840.114 350.1.13.10 4.2.7.2.686 [id number] [facility] 2020-12-13 09:00:00 2020-12-13 09:00:00 Outpatient R MARY PAK [facility] [id number] [facility] 2020-11-22 00:00:00 2020-11-22 00:00:00 Telephone Mary Pak VTJAZ SENIOR BUSINESS PROCESS ANALYST [facility] MATERNAL & CHILD [facility] 1.2840.114 350.1.13.10 4.2.7.2.686 [id number] 2020-11-22 00:00:00 2020-11-22 00:00:00 Telephone Mary Pak VTMB SENIOR BUSINESS PROCESS ANALYST [facility] & CHILD [facility] 1.2.840.114 350.1.13.10 4.2.7.2.686 [id number] [facility] 2020-11-18 13:53:58 2020-11-18 14:32:55 Routine Visit Mary Pak [facility] SENIOR BUSINESS PROCESS ANALYST [facility] MATERNAL & CHILD [facility] 1.2.840.114 350.1.13.10 4.2.7.2.686 [id number] [facility] 2020-11-18 14:00:00 2020-11-18 14:00:00 Outpatient R MARY PAK [facility] [id number] [facility] 2020-11-15 14:19:40 2020-11-15 14:52:07 Routine Visit Mary Pak [facility] SENIOR BUSINESS PROCESS [facility]NALY[facility] & CHILD [facility] 1..840.114 350.1.13.10 4.2.7.2.686 [id number] [facility] 2020-11-15 14:30:00 2020-11-15 14:30:00 Outpatient R MARY PAK [facility] [id number] [facility] 2020-11-15 09:47:18 2020-11-15 10:32:18 Heel Wheeler Visit 1, [facility] Room [facility] SENIOR BUSINESS PROCESS ANALYST [facility] MATERNAL & CHILD [facility] ..840.114 350.1.13.10 4.2.7.2.686 [id number] [facility] 2020-11-15 00:00:00 2020-11-15 00:00:00 Abstract Mary Pak [facility] SENIOR BUSINESS PROCESS ANALY[facility] & CHILD [facility] 1..840.114 350.1.13.10 4.2.7.2.686 [id number] 107 [id number] [facility] 2020-11-12 08:00:00 2020-11-12 08:00:00 Outpatient P [facility] [id number] [facility] 2020-11-09 10:45:00 2020-11-09 10:45:00 Outpatient R MARY PAK [facility] [id number] [facility] 2020-10-26 00:00:00 2020-10-26 00:00:00 Telephone Mary Pak VTJAZ SENIOR BUSINESS PROCESS ANALYST [facility] MATERNAL & CHILD [facility] 1..840.114 350.1.13.10 4.2.7.2.686 [id number] [facility] 2020-10-25 00:00:00 2020-10-25 00:00:00 Telephone Mary Pak [facility] SENIOR BUSINESS PROCESS ANALYST [facility] MATERNAL & CHILD [facility] 1..840.114 350.1.13.10 4.2.7.2.686 [id number] 107 [id number] [facility] 2020-10-15 13:36:20 2020-10-15 13:57:00 Nurse Visit Visit, Natty Nurse Mary Pak [facility] SENIOR BUSINESS PROCESS ANALYST [facility] MATERNAL & CHILD [facility] ..840.114 350.1.13.10 4.2.7.2.686 [id number] [facility] 2020-10-15 13:30:00 2020-10-15 13:30:00 Outpatient R MARY PAK [facility] [id number] [facility] 2020-10-15 00:00:00 2020-10-15 00:00:00 Telephone Mary Pak [facility] SENIOR BUSINESS PROCESS ANALYST [facility] MATERNAL & CHILD [facility] 1..840.114 350.1.13.10 4.2.7.2.686 [id number] [facility] 2020-10-14 13:31:32 2020-10-14 13:46:17 Heel Wheeler Visit Lab, Mary Rivers [facility] SENIOR BUSINESS PROCESS ANALYST [facility] & CHILD [facility] 1.2.840.114 350.1.13.10 4.2.7.2.686 [id number] 107 [id number] [facility] 2020-10-14 13:30:00 2020-10-14 13:30:00 Outpatient R [facility] [id number] [facility] 2020-10-14 00:00:00 2020-10-14 00:00:00 Telephone JuanpacoMary [facility] SENIOR BUSINESS PROCESS ANALYST [facility] MATERNAL & CHILD [facility] 1.2.840.114 350.1.13.10 4.2.7.2.686 [id number] [facility] 2020-10-12 10:05:33 2020-10-12 10:56:14 Initial Visit Mary Pak [facility] SENIOR BUSINESS PROCESS [facility]NALYST [facility] & CHILD [facility] 1..840.114 350.1.13.10 4.2.7.2.686 [id number] [facility] 2020-10-12 09:30:00 2020-10-12 09:30:00 Outpatient R MARY PAK [facility] [id number] [facility] 2020-10-12 00:00:00 2020-10-12 00:00:00 Orders Only Doctor Unassigned, [place] [facility] 1..840.114 350.1.13.10 4.2.7.2.686 [id number] [facility] Results Test Description Test Time Test Comments Results Result Co mments Source [facility] [id number] 14:45:00* Test Item Value Reference Range Interpretation Comme nts POCT PREG (test code = 1605) Positive On board controls acceptable with C Line (test code = 3574) Yes POCT PREG LOT # (test code = 3575) POCT PREG TEST DATE ( test code = 3576) [facility]-AB WITH [id number] 20:58:41* Test Item Value Reference Range Interpretation Comme nts HIV Semi-quantitative (test code = 74708-4) 0.09 Negative RENETTA (test code = RENETTA) Non-reactive for HIV-1 antigen and HIV-1/HIV-2 antibodies. ?No laboratory evidence of HIV infection. ?Repeat in 2-4 weeks if acute HIV infection is suspected. [facility] WITH [id number] 18:52:22* Test Item Value Reference Range Interpretation Comme nts WBC (test code = 6690-2) 18.95 See_Comment H [Automated message] The system which generated this result transmitted reference range: 4.30 - 11.10 10*3/?L. The reference range was not used to interpret this result as normal/abnormal. RBC (test code = 789-8) 4.35 See_Comment [Automated message] The system which generated this result transmitted reference range: 3.93 - 5.25 10*6/?L. The reference range was not used to interpret this result as normal/abnormal. HGB (test code = 718-7) 12.4 g/dL 11.6-15.0 HCT (test code = 4544-3) 35.7 % 35.7-45.2 MCV (test code = 787-2) 82.1 fL 80.6-95.5 MCH (test code = 785-6) 28.5 pg 25.9-32.8 MCHC (test code = 786-4) 34.7 g/dL 31.6-35.1 RDW-SD (test code = 77547-1) 38.2 fL 39.0-49.9 L RDW-CV (test code = 788-0) 12.7 % 12.0-15.5 PLT (test code = 777-3) 300 See_Comment [Automated message] The system which generated this result transmitted reference range: 166 - 358 10*3/?L. The reference range was not used to interpret this result as normal/abnormal. MPV (test code = 28349-7) 10.0 fL 9.5-12.9 NRBC/100 WBC (test code = 0586058967) 0.0 See_Comment [Automated message] The system which generated this result transmitted reference range: 0.0 - 10.0 /100 WBCs. The reference range was not used to interpret this result as normal/abnormal. NRBC x10^3 (test code = 6784520605) See_Comment [Automated message] The system which generated this result transmitted reference range: 10*3/?L. The reference range was not used to interpret this result as normal/abnormal. GRAN MAT (NEUT) % (test code = 770-8) 85.1 % IMM GRAN % (test code = 6005808663) 0.70 % LYMPH % (test code = 736-9) 9.4 % MONO % (test code = 5905-5) 4.1 % EOS % (test code = 713-8) 0.4 % BASO % (test code = 706-2) 0.3 % GRAN MAT x10^3(ANC) (test code = 0884383206) 16.13 10*3/uL 1.88-7.09 H IMM GRAN x10^3 (test code = 7260461691) 0.13 10*3/uL 0.00-0.06 H LYMPH x10^3 (test code = 731-0) 1.79 10*3/uL 1.32-3.29 MONO x10^3 (test code = 742-7) 0.77 10*3/uL 0.33-0.92 EOS x10^3 (test code = 711-2) 0.08 10*3/uL 0.03-0.39 BASO x10^3 (test code = 704-7) 0.05 10*3/uL 0.01-0.07 BANDS (test code = 7204317267) MARKED INCREASED A Lab Interpretation (test code = 57319-8) Abnormal [facility]OLIC PAN[facility] ([id number])2023-05-14 18:20:47* Test Item Value Reference Range Interpretation Comme nts NA (test code = 2554209036) 137 mmol/L 135-145 K (test code = 2759268489) 3.6 mmol/L 3.5-5.0 CL (test code = 6025307340) 104 mmol/L 98-108 CO2 TOTAL (test code = 9892732266) 24 mmol/L 23-31 AGAP (test code = 6725603695) 9 2-16 BUN (test code = 5353121685) 9 mg/dL 7-23 GLUCOSE (test code = 0102642756) 107 mg/dL 70-110 CREATININE (test code = 2524255096) 0.60 mg/dL 0.50-1.04 TOTAL BILI (test code = 2138504037) 0.5 mg/dL 0.1-1.1 CALCIUM (test code = 2391237287) 8.7 mg/dL 8.6-10.6 T PROTEIN (test code = 9833978304) 7.5 g/dL 6.3-8.2 ALBUMIN (test code = 7704591037) 4.3 g/dL 3.5-5.0 ALK PHOS (test code = 6212386939) 80 U/L 34-122 ALTv (test code = 1742-6) 27 U/L 5-35 AST(SGOT) (test code = 1751820089) 24 U/L 13-40 eGFR (test code = 9792395110) 119.0 mL/min/1.73m2 RENETTA (test code = RENETTA) Association of Glomerular Filtration Rate (GFR) and Staging of Kidney Disease* + + +- +| GFR (mL/min/1.73 m2) ?| With Kidney Damage ?| ?Without Kidney Damage+ ------+ ----+ ------+| ?>90 ?| ?Stage one ?| ? Normal ?+ -+ + -+| ?60-89 ?| ?Stage two ?| ? Decreased GFR ? + + +- +| ?30-59 ?| ?Stage three ?| ? Stage three ? + + +- +| ?15-29 ?| ?Stage four ? | ? Stage four ?+ -+ + -+| ?<15 (or dialysis) ? ?| ?Stage five ? | ? Stage five ?+ -+ + -+ *Each stage assumes the associated GFR level has been in effect for at least three months. ?Stages 1 to 5, with or without kidney disease, indicate chronic kidney disease. Notes: Determination of stages one and two (with eGFR >59mL/min/1.73 m2) requires estimation of kidney damage for at least three months as defined by structural or functional abnormalities of the kidney, manifested by either:Pathological abnormalities or Markers of kidney damage (including abnormalities in the composition of the blood or urine or abnormalities in imaging tests). [facility] CenterLIPASE2023-08-21 18:20:06* Test Item Value Reference Range Interpretation Comme nts LIPASE (test code = 0633718422) 57 U/L 0-220 Lab Interpretation (test cod e = 15044-6) Normal [facility] [id number] 18:01:00* Test Item Value Reference Range Interpretation Comme nts POCT PREG (test code = 1605) Negative On board controls acceptable with C Line (test code = 3574) Yes Lab Interpretation (test cod e = 44269-8) Normal [facility] [id number] 16:27:00* Test Item Value Reference Range Interpretation Comme nts POCT PREG (test code = 1605) Negative On board controls acceptable with C Line (test code = 3574) Yes POCT PREG LOT # (test code = 3575) POCT PREG TEST DATE ( test code = 3576) [facility] [id number] 16:27:00* Test Item Value Reference Range Interpretation Comme nts POCT PREG (test code = 1605) Negative On board controls acceptable with C Line (test code = 3574) Yes POCT PREG LOT # (test code = 3575) POCT PREG TEST DATE ( test code = 3576) [facility] Packed RBC (in units), 1 Units 2022-10-14 15:50:25* Test Item Value Reference Range Interpretation Comme nts Cross Match Result (test code = 4409) Compatible ISBT Blood Type Code (test code = 044618) Unit Blood Type (test code = 4410) B Pos Unit Number (test code = 4411) [id number] Blood Expiration Date & Time (test code = 133505) Status Information (test code = 4412) Issued Product Identification (test code = 4413) Red Blood Cells Product Code (test code = 4414) [id number] Performed at [facility] B Laboratory Services - [facility] Blood [address] [place] [address]: [phone] No. [id number] [facility] CenterRHO (D) IMMUNE [id number] 12:40:44* Test Item Value Reference Range Interpretation Comme nts RHIG CANDIDATE? (test code = 5055) No- see comment Patient is not a candidate for RhIg- Patient is Rh Positive.Performed at [facility] Laboratory Services - [facility] Blood [address] [address] Free: [phone] No. [id number] [facility] CenterARTERIAL CORD [id number] 12:27:08* Test Item Value Reference Range Interpretation Comme nts BASE EXCESS, CORD (test code = 7060577636) mEq/L QUES AC PH, CORD (BEAKER) (test code = 7775671230) 7.18-7.38 PC02, CORD (test code = 7683659200) See_Comment [Automated messa ge] The system which generated this result transmitted reference range: 32 - 66 mmHg. The reference range was not used to interpret this result as normal/abnormal. PO2, CORD (test code = 5212370736) See_Comment [Automated messa ge] The system which generated this result transmitted reference range: 10 - 30 mmHg. The reference range was not used to interpret this result as normal/abnormal. BICARBONATE, CORD (test code = 6827457777) See_Comment [Automated messa ge] The system which generated this result transmitted reference range: 17 - 27 mEq/L. The reference range was not used to interpret this result as normal/abnormal. [facility] CenterVENOUS CORD [id number] 12:26:17* Test Item Value Reference Range Interpretation Comme nts VENOUS BASE EXCESS, CORD (test code = 6231422373) mEq/L VENOUS PH, CORD (test code = 1694452275) 7.25-7.45 VENOUS PC02, CORD (test code = 3315838402) See_Comment [Automated messa ge] The system which generated this result transmitted reference range: 27 - 49 mmHg. The reference range was not used to interpret this result as normal/abnormal. VENOUS PO2, CORD (test code = 6234220912) See_Comment [Automated me ssage] The system which generated this result transmitted reference range: 17 - 41 mmHg. The reference range was not used to interpret this result as normal/abnormal. VENOUS BICARBONATE, CORD (test code = 7305203781) See_Comment QUES [Automated message] The system which generated this result transmitted reference range: 12 - 29 mEq/L. The reference range was not used to interpret this result as normal/abnormal. [facility] CenterType and Screen - ONCE [id number] 17:10:23 * Test Item Value Reference Range Interpretation Comme nts ABO & RH (test code = 20) B POSITIVE Performed at [facility] Laboratory Services - [facility] Blood [address] Free: [phone] No. [id number] IAT (test code = 1185) Negative Performed at [facility] Laboratory [facility] Blood [address] Free: [phone] No. [id number] [facility] CenterPOWI URINALYSIS W SPECIFIC [id number] 22:01:00* Test Item Value Reference Range Interpretation Comme nts POCT U SP GRAV (test code = 3255) . 1.005-1.025 POCT PH U (test code = 3254) . 5-8 POCT U LEUK EST (test code = 3263) . Negative - Negative POCT U NIT (test code = 3262) . Negative - Negati ve POCT U PROT (test code = 3259) trace Negative - Negat akhil POCT U GLU (test code = 3256) negative Negative - Negati ve POCT U KETONE (test code = 3258) . Negative - Neg ative POCT U UROBILI (test code = 3260) . 0.2-1 POCT U BILI (test code = 3261) . Negative - Negat akhil POCT U BLD (test code = 3257) . Negative - Negati ve POCT U COLOR (test code = 3266) . POCT U APPEAR (test code = 3267) . [facility] URINALYSIS W SPECIFIC [id number] 14:41:00* Test Item Value Reference Range Interpretation Comme nts POCT U SP GRAV (test code = 3255) . 1.005-1.025 POCT PH U (test code = 3254) . 5-8 POCT U LEUK EST (test code = 3263) . Negative - N egative POCT U NIT (test code = 3262) . Negative - Negati ve POCT U PROT (test code = 3259) Trace Negative - Negat akhil POCT U GLU (test code = 3256) Neg Negative - Negati ve POCT U KETONE (test code = 3258) . Negative - Neg ative POCT U UROBILI (test code = 3260) . 0.2-1 POCT U BILI (test code = 3261) . Negative - Negat akhil POCT U BLD (test code = 3257) . Negative - Negati ve POCT U COLOR (test code = 3266) . POCT U APPEAR (test code = 3267) [facility] URINALYSIS W SPECIFIC [id number] 15:10:00* Test Item Value Reference Range Interpretation Comme nts POCT U SP GRAV (test code = 3255) . 1.005-1.025 POCT PH U (test code = 3254) . 5-8 POCT U LEUK EST (test code = 3263) . Negative - N egative POCT U NIT (test code = 3262) . Negative - Negati ve POCT U PROT (test code = 3259) . Negative - Negat akhil POCT U GLU (test code = 3256) . Negative - Negati ve POCT U KETONE (test code = 3258) . Negative - Neg ative POCT U UROBILI (test code = 3260) . 0.2-1 POCT U BILI (test code = 3261) . Negative - Negat akhil POCT U BLD (test code = 3257) . Negative - Negati ve POCT U COLOR (test code = 3266) POCT U APPEAR (test code = 3267) [facility] URINALYSIS W SPECIFIC [id number] 15:10:00* Test Item Value Reference Range Interpretation Comme nts POCT U SP GRAV (test code = 3255) . 1.005-1.025 POCT PH U (test code = 3254) . 5-8 POCT U LEUK EST (test code = 3263) . Negative - N egative POCT U NIT (test code = 3262) . Negative - Negati ve POCT U PROT (test code = 3259) . Negative - Negat akhil POCT U GLU (test code = 3256) . Negative - Negati ve POCT U KETONE (test code = 3258) . Negative - Neg ative POCT U UROBILI (test code = 3260) . 0.2-1 POCT U BILI (test code = 3261) . Negative - Negat akhil POCT U BLD (test code = 3257) . Negative - Negati ve POCT U COLOR (test code = 3266) POCT U APPEAR (test code = 3267) [facility] URINALYSIS W SPECIFIC [id number] 21:34:00* Test Item Value Reference Range Interpretation Comme nts POCT U SP GRAV (test code = 3255) . 1.005-1.025 POCT PH U (test code = 3254) . 5-8 POCT U LEUK EST (test code = 3263) . Negative - N egative POCT U NIT (test code = 3262) . Negative - Negati ve POCT U PROT (test code = 3259) 1+ Negative - Negat akhil POCT U GLU (test code = 3256) Neg Negative - Negati ve POCT U KETONE (test code = 3258) . Negative - Neg ative POCT U UROBILI (test code = 3260) . 0.2-1 POCT U BILI (test code = 3261) . Negative - Negat akhil POCT U BLD (test code = 3257) . Negative - Negati ve POCT U COLOR (test code = 3266) . POCT U APPEAR (test code = 3267) [facility] URINALYSIS W SPECIFIC [id number] 19:05:00* Test Item Value Reference Range Interpretation Comme nts POCT U SP GRAV (test code = 3255) . 1.005-1.025 POCT PH U (test code = 3254) . 5-8 POCT U LEUK EST (test code = 3263) . Negative - Negative POCT U NIT (test code = 3262) . Negative - Negati ve POCT U PROT (test code = 3259) trace Negative - Negat akhil POCT U GLU (test code = 3256) negative Negative - Negati ve POCT U KETONE (test code = 3258) . Negative - Neg ative POCT U UROBILI (test code = 3260) . 0.2-1 POCT U BILI (test code = 3261) . Negative - Negat akhil POCT U BLD (test code = 3257) . Negative - Negati ve POCT U COLOR (test code = 3266) POCT U APPEAR (test code = 3267) [facility] URINALYSIS W SPECIFIC [id number] 19:05:00* Test Item Value Reference Range Interpretation Comme nts POCT U SP GRAV (test code = 3255) . 1.005-1.025 POCT PH U (test code = 3254) . 5-8 POCT U LEUK EST (test code = 3263) . Negative - Negative POCT U NIT (test code = 3262) . Negative - Negati ve POCT U PROT (test code = 3259) trace Negative - Negat akhil POCT U GLU (test code = 3256) negative Negative - Negati ve POCT U KETONE (test code = 3258) . Negative - Neg ative POCT U UROBILI (test code = 3260) . 0.2-1 POCT U BILI (test code = 3261) . Negative - Negat akhil POCT U BLD (test code = 3257) . Negative - Negati ve POCT U COLOR (test code = 3266) POCT U APPEAR (test code = 3267) [facility] URINALYSIS W SPECIFIC [id number] 19:05:00* Test Item Value Reference Range Interpretation Comme nts POCT U SP GRAV (test code = 3255) . 1.005-1.025 POCT PH U (test code = 3254) . 5-8 POCT U LEUK EST (test code = 3263) . Negative - Negative POCT U NIT (test code = 3262) . Negative - Negati ve POCT U PROT (test code = 3259) trace Negative - Negat akhil POCT U GLU (test code = 3256) negative Negative - Negati ve POCT U KETONE (test code = 3258) . Negative - Neg ative POCT U UROBILI (test code = 3260) . 0.2-1 POCT U BILI (test code = 3261) . Negative - Negat akhil POCT U BLD (test code = 3257) . Negative - Negati ve POCT U COLOR (test code = 3266) POCT U APPEAR (test code = 3267) [facility] URINALYSIS W SPECIFIC [id number] 14:25:00* Test Item Value Reference Range Interpretation Comme nts POCT U SP GRAV (test code = 3255) . 1.005-1.025 POCT PH U (test code = 3254) . 5-8 POCT U LEUK EST (test code = 3263) . Negative - N egative POCT U NIT (test code = 3262) . Negative - Negati ve POCT U PROT (test code = 3259) trace Negative - Negat akhil POCT U GLU (test code = 3256) normal Negative - Negati ve POCT U KETONE (test code = 3258) . Negative - Neg ative POCT U UROBILI (test code = 3260) . 0.2-1 POCT U BILI (test code = 3261) . Negative - Negat akhil POCT U BLD (test code = 3257) . Negative - Negati ve POCT U COLOR (test code = 3266) . POCT U APPEAR (test code = 3267) . [facility] URINALYSIS W SPECIFIC [id number] 14:51:00* Test Item Value Reference Range Interpretation Comme nts POCT U SP GRAV (test code = 3255) . 1.005-1.025 POCT PH U (test code = 3254) 6 mg/dl 5-8 POCT U LEUK EST (test code = 3263) trace Negative - Negative POCT U NIT (test code = 3262) negative Negative - Negati ve POCT U PROT (test code = 3259) trace Negative - Negat akhil POCT U GLU (test code = 3256) negative Negative - Negati ve POCT U KETONE (test code = 3258) negative Negative - Neg ative POCT U UROBILI (test code = 3260) . 0.2-1 POCT U BILI (test code = 3261) . Negative - Negat akhil POCT U BLD (test code = 3257) negative Negative - Negati ve POCT U COLOR (test code = 3266) yellow POCT U APPEAR (test code = 3267) clear [facility] - SYPHILIS [id number] 19:34:54* Test Item Value Reference Range Interpretation Comme [facility] Syphilis IgG/IgM (test code = 34289-4) Non-reactive Non-reactive RENETTA (test code = RENETTA) Non-reactive - No serologic evidence of T. pallidum infection. Cannot exclude incubating or early syphilis. Submit a second specimen in 2-4 weeks if syphilis is clinically suspected. Equivocal - Further testing to follow. Reactive - Further testing to follow. Lab Interpretation (test code = 65906-1) Normal [facility]2 AG-AB WITH [id number] 07:34:06* Test Item Value Reference Range Interpretation Comme [facility] HIV Semi-quantitative (test code = 48100-6) Negative Negative RENETTA (test code = RENETTA) Non-reactive for HIV-1 antigen and HIV-1/HIV-2 antibodies. ?No laboratory evidence of HIV infection. ?Repeat in 2-4 weeks if acute HIV infection is suspected. [facility] URINALYSIS W/O SPECIFIC [id number] 14:40:00* Test Item Value Reference Range Interpretation Comme nts POCT PH U (test code = 3254) . 5-8 POCT U LEUK EST (test code = 3263) . Negative - N egative POCT U NIT (test code = 3262) . Negative - Negati ve POCT U PROT (test code = 3259) Trace Negative - Negat akhil POCT U GLU (test code = 3256) Neg Negative - Negati ve POCT U KETONE (test code = 3258) . Negative - Neg ative POCT U BLD (test code = 3257) . Negative - [facility]ati [facility] [facility]/O SPECIFIC [id number] 14:40:00* Test Item Value Reference Range Interpretation Comme nts POCT PH U (test code = 3254) . 5-8 POCT U LEUK EST (test code = 3263) . Negative - N egative POCT U NIT (test code = 3262) . Negative - Negati ve POCT U PROT (test code = 3259) Trace Negative - Negat akhil POCT U GLU (test code = 3256) Neg Negative - Negati ve POCT U KETONE (test code = 3258) . Negative - Neg ative POCT U BLD (test code = 3257) . Negative - Negati ve [facility] URINALYSIS W/O SPECIFIC [id number] 14:40:00* Test Item Value Reference Range Interpretation Comme nts POCT PH U (test code = 3254) . 5-8 POCT U LEUK EST (test code = 3263) . Negative - N egative POCT U NIT (test code = 3262) . Negative - Negati ve POCT U PROT (test code = 3259) Trace Negative - Negat akhil POCT U GLU (test code = 3256) Neg Negative - Negati ve POCT U KETONE (test code = 3258) . Negative - Neg ative POCT U BLD (test code = 3257) . Negative - Negati ve [facility] URINALYSIS W SPECIFIC [id number] 13:20:00* Test Item Value Reference Range Interpretation Comme nts POCT U SP GRAV (test code = 3255) . 1.005-1.025 POCT PH U (test code = 3254) . 5-8 POCT U LEUK EST (test code = 3263) . Negative - N egative POCT U NIT (test code = 3262) . Negative - Negati ve POCT U PROT (test code = 3259) Trace Negative - Negat akhil POCT U GLU (test code = 3256) Neg Negative - Negati ve POCT U KETONE (test code = 3258) . Negative - Neg ative POCT U UROBILI (test code = 3260) . 0.2-1 POCT U BILI (test code = 3261) . Negative - Negat akhil POCT U BLD (test code = 3257) . Negative - Negati ve POCT U COLOR (test code = 3266) . POCT U APPEAR (test code = 3267) [facility] URINALYSIS W SPECIFIC [id number] 14:30:00* Test Item Value Reference Range Interpretation Comme nts POCT U SP GRAV (test code = 3255) . 1.005-1.025 POCT PH U (test code = 3254) . 5-8 POCT U LEUK EST (test code = 3263) . Negative - N egative POCT U NIT (test code = 3262) . Negative - Negati ve POCT U PROT (test code = 3259) Trace Negative - Negat akhil POCT U GLU (test code = 3256) Neg Negative - Negati ve POCT U KETONE (test code = 3258) . Negative - Neg ative POCT U UROBILI (test code = 3260) . 0.2-1 POCT U BILI (test code = 3261) . Negative - Negat akhil POCT U BLD (test code = 3257) . Negative - Negati ve POCT U COLOR (test code = 3266) POCT U APPEAR (test code = 3267) [id number] 11:50:00* Test Item Value Reference Range Interpretation Comme nts PLACENTA THIRD TRIMESTER (test code = PLACIII) RUN DATE: 03/10/21 [facility] PAGE 1 RUN TIME: 1835 Specimen Inquiry RUN USER: INTERFACE PATIENT: KRISTINA OLMEDO LOC: DAGOBERTO U #: [id number] AGE/SX: 25/F ROOM: [facility] RE03/05/21REG DR: Teodoro Romo MD : 94 BED: A DIS: 03/07/21 STATUS: DIS IN TLOC: SPEC #: [id number] RECD: 03/07/21 STATUS: [place] TERRY #: [id number] MAGALY: 03/05/21- SUBM DR: Teodoro Romo MD ENTERED: 03/07/21 SP TYPE: PLACIII OTHR DR: ORDERED: LEVEL V SURGICA CODES: [id number] - PLACENTA, NOS PROCEDURES: LEVEL V SURGICA [...] weight: actual 205 gms/expected 197 gms CPT: 58863 [facility]/wpd GROSS DESCRIPTION The specimen was received in [...] Specimen Inquiry RUN USER: INTERFACE SPEC #: [id number] PATIENT: KRISTINA OLMEDO #[id number] (Continued) GROSS DESCRIPTION (Continued) The trimmed placental weight: 205 gm Disk measurement: 15 x 11 x 3 cm in greatest dimension Accessory lobes: None Maternal surface: Lobulated and focally disrupted, completeness cannot be determined Parenchyma: Red-brown and spongy Parenchyma lesions: None Cassettes: A1 through A4 domingo/elizabeth 03/07/21 Signed Ricco Harris Rafi 03/10/21 1150 END OF REPORT HGB [id number] 07:25:00* Test Item Value Reference Range Interpretation Comme nts HEMOGLOBIN (test code = HGB) 8.4 g/dL 10.1-13.8 L HEMATOCRIT (test code = HCT) 25.8 % 32.5-41.8 L HGB [id number] 10:47:00* Test Item Value Reference Range Interpretation Comme nts HEMOGLOBIN (test code = HGB) 7.7 g/dL 10.1-13.8 L Results verified by repeat analysis HEMATOCRIT (test code = HCT) 22.8 % 32.5-41.8 L Results verified by repeat analysis VENOUS BLOOD [id number] 21:53:00* Test Item Value Reference Range Interpretation Comme nts VENOUS BLOOD GAS PH (test code = PHV) 7.388 7.31-7.41 N VENOUS BLOOD GAS PCO2 (test code = PCO2V) 33.6 mmHg VENOUS BLOOD GAS PO2 (test code = PO2V) 47.7 mmHg VBG HCO3 (test code = HCO3V) 19.8 meq/L VBG BASE EXCESS (test code = CHRIS) -4.2 See_Comment L [Automated mes marcy] The system which generated this result transmitted reference range: -2.0 to +2.0. The reference range was not used to interpret this result as normal/abnormal. VENOUS BLOOD GAS OS SAT. (test code = O2SATV) 83.6 % VENOUS BLOOD GAS TYPE (test code = TYPEV) Venous VENOUS BLOOD GAS FIO2 (test code = FIO2V) 21.0 % VBG VENT MODE (test code = MODEV) NIPPV AG HEPATITIS B [id number] 04:37:00* Test Item Value Reference Range Interpretation Comme nts AG HEPATITIS B SURFACE (test code = HBSAG) NONREACTIVE NONREACTIVE IS CONSENT FORM SIGNED FOR HIV TESTING? YAB HEPATITIS C [id number] 04:37:00* Test Item Value Reference Range Interpretation Comme nts AB HEPATITIS C (test code = HCVAB) NONREACTIVE NONREACTIVE SIGNAL TO CUTOFF (test code = CUTOFF) 0.04 <0.80 N IS CONSENT FORM SIGNED FOR HIV TESTING? YAB [id number] 04:37:00* Test Item Value Reference Range Interpretation Comme nts AB TREPONEMA (test code = TREPAB) NONREACTIVE NONREACTIVE IS CONSENT FORM SIGNED FOR HIV TESTING? YAB HIV 1 04:37:00* Test Item Value Reference Range Interpretation Comme nts AB HIV 1 2 (test code = [id number]) NONREACTIVE NONREACTIVE Done by [employer] 4[employer] HIV Ag/Ab Combo Screen IS CONSENT FORM SIGNED FOR HIV TESTING? YAG HEPATITIS B [id number] 04:11:00* Test Item Value Reference Range Interpretation Comme nts AG HEPATITIS B SURFACE (test code = HBSAG) NONREACTIVE NONREACTIVE IS CONSENT FORM SIGNED FOR HIV TESTING? BECKYB HEPATITIS C [id number] 04:11:00* Test Item Value Reference Range Interpretation Comme nts AB HEPATITIS C (test code = HCVAB) NONREACTIVE SIGNAL TO CUTOFF (test code = CUTOFF) <0.80 IS CONSENT FORM SIGNED FOR HIV TESTING? BECKYB [id number] 04:11:00* Test Item Value Reference Range Interpretation Comme nts AB TREPONEMA (test code = TREPAB) NONREACTIVE NONREACTIVE IS CONSENT FORM SIGNED FOR HIV TESTING? YAB HIV 1 04:11:00* Test Item Value Reference Range Interpretation Comme nts AB HIV 1 2 (test code = [id number]) NONREACTIVE IS CONSENT FORM SIGNED FOR HIV TESTING? YCOMPREHENSIVE METABOLIC [id number] 02:03:00* Test Item Value Reference Range Interpretation Comme nts SODIUM (test code = NA) 138 mEq/L 135-145 N POTASSIUM (test code = K) 4.3 mEq/L 3.5-5.0 N CHLORIDE (test code = CL) 106 mEq/L 100-115 N CARBON DIOXIDE (test code = CO2) 19 mEq/L 22-31 L ANION GAP (test code = GAP) 17.70 10-20 N GLUCOSE (test code = GLU) 157 mg/dL 65-110 H BLOOD UREA NITROGEN (test co de = BUN) 5 mg/dL 7-18 L GLOMERULAR FILTRATION RATE ( test code = GFR) 101 ml/min >60 N CREATININE (test code = CREAT) 0.7 mg/dL [...] 19 units/L 12-78 N ALKALINE PHOSPHATASE TOTAL ( test code = ALKP) 75 units/L 46-116 N URINALYSIS [id number] 01:41:00* Test Item Value Reference Range Interpretation Comme nts UA COLOR (test code = COLU) STRAW YELLOW UA APPEARANCE (test code = APPU) CLEAR CLEAR UA GLUCOSE DIPSTICK (test code = DGLUU) 3+ NEGATIVE A UA BILIRUBIN DIPSTICK (test code = BILU) NEGATIVE NEGATIVE UA KETONE DIPSTICK (test code = KETU) NEGATIVE NEGATIVE UA SPECIFIC GRAVITY (test code = SGU) 1.020 1.001-1.035 N UA BLOOD DIPSTICK (test code = GARY) 1+ NEGATIVE A UA PH DIPSTICK (test code = KARI) 5.5 5-9 UA PROTEIN DIPSTICK (test code = PROU) NEGATIVE NEGATIVE UA UROBILINIOGEN DIPSTICK (test code = URO) 0.2 EU/dL See_Comment [Automated [employer]] The system which generated this result transmitted reference range: <=1.0. The reference range was not used to interpret this result as normal/abnormal. UA NITRITE DIPSTICK (test code = BARB) NEGATIVE NEGATIVE UA LEUKOCYTE ESTERASE DIPSTICK (test code = LEUU) NEG NEGATIVE UA WBC (test code = WBCU) 0-2 #/hpf NONE SEEN UA RBC (test code = RBCU) 3-5 #/hpf NONE SEEN A UA EPITHELIAL CELLS (test code = EPIU) RARE #/hpf NONE SEEN URINE SAMPLE: URINE BAGCBC W/AUTO [id number] 01:32:00* Test Item Value Reference Range Interpretation Comme nts WHITE BLOOD CELL (test code = WBC) [...] pg 27.3-33.9 N MEAN CELL HGB CONCETRATION ( test code = MCHC) 33.2 gm/dL 32.0-34.2 N RED CELL DISTRIBUTION WIDTH (test code = RDW) 11.9 % 12.2-16.3 L PLATELET COUNT (test code = PLT) 246 K/mm3 134-363 N MEAN PLATELET VOLUME (test c ode = MPV) 10.7 fL 9.2-12.7 N NEUTROPHIL % (test code = NT%) 88.5 [...] = BA#) 0.1 K/mm3 RBC MORPHOLOGY REQUIRED (bipin t code = RBCM) NORMAL NORMAL PLATELET MORPHOLOGY REQUIRED (test code = PLTMR) NORMAL NORMAL
[2024-10-16 20:47] LABS: SARS-CoV-2 Antigen CONTROL BLUE LINE VIS/BG OK; SARS-CoV-2 Antigen Rapid Res Negative (Negative)
--- NOTE | 2024-10-16 21:03 | EDPHYS ---
Physician Documentation [facility] Name: Chantelle Wells Age: 29 yrs Sex: Female : 1995 Arrival Date: 10/16/2024 Time: 19:33 Bed IW4 Private MD: ED Physician Yared Cho HPI: 10/16 20:18 This 29 yrs old Female presents to ER via Ambulatory with complaints of Fever, rn Cough, Congestion, Flu Symptoms. 20:18 The patient reports fever, not measured (subjective). Onset: The symptoms/episode rn began/occurred 4 day(s) ago. Modifying factors: there are no obvious modifying factors. Modifying factors: The patient has had contact with sick. Associated signs and symptoms: Pertinent positives: chills, cough, runny nose, Pertinent negatives: abdominal pain, chest pain, diarrhea, headache, hemoptysis, shortness of breath, vomiting. Severity of symptoms: At their worst the symptoms were mild in the emergency department the symptoms are unchanged. The patient has not experienced similar symptoms in the past. Patient reports subjective fever, myalgias, cough, congestion, generalized weakness for 4 days. Patient reports son had similar illness and just diagnosed with ear infection today. Patient is approximately 17 weeks without acute complaints but she did not know what she could or could not take due to . Patient took DayQuil x 1 and Tylenol at home. No abdominal pain or vaginal bleeding or cramps. No leakage of fluid.. 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 - Infectious Disease History:: Denies. - Social history:: Smoking status: Patient denies any tobacco usage or history of. - Family history:: not pertinent. - Hospitalizations: : No recent hospitalization is reported. ROS: 20:18 Constitutional: Positive for fever and chills Eyes: Negative for injury, pain, redness, rn and discharge, ENT: Positive for runny nose and sinus congestion, positive for sore throat Neck: Negative for injury, pain, and swelling, Cardiovascular: Negative for chest pain, palpitations, and edema, Respiratory: Positive for cough, negative for shortness of breath or hemoptysis Abdomen/GI: Negative for abdominal pain, nausea, vomiting, diarrhea, and constipation, MS/Extremity: Negative for injury and deformity, Skin: Negative for injury, rash, and discoloration, Neuro: Positive for generalized weakness, negative for headache Exam: 20:18 Constitutional: This is a well developed, well nourished patient who is awake, alert, rn and in no acute distress. Ambulatory to room without difficulty or assistance Head/Face: Normocephalic, atraumatic. ENT: Sounds very congested. Clear nasal drainage. No stridor. Mild pharyngeal erythema. No exudate Neck: No cervical lymphadenopathy. No meningismus Cardiovascular: Regular rate and rhythm. No pulse deficits. Respiratory: Speaking full sentences, unlabored. No increased work of breathing, no retractions or nasal flaring. Skin: Warm, dry Neuro: Awake and alert, GCS 15 Vital Signs: 20:10 BP 146 / 109; Pulse 87; Resp 18; Temp 98.1; Pulse Ox 100% on R/A; Weight 77.11 kg; al5 Height 5 ft. 0 in. ; Pain 7/10; 20:10 Body Mass Index 33.20 (77.11 kg, 152.4 cm) al5 20:10 Pain Scale: Adult al5 MDM: 20:00 Medical Screening Exam initiated rn 21:02 Differential diagnosis: viral Infection, bacterial infection, URI. Data reviewed: vital rn signs, nurses notes, lab test result(s), and as a result, I will discharge patient. Counseling: I had a detailed discussion with the patient and/or guardian regarding the historical points, exam findings, and any diagnostic results supporting the discharge/admit diagnosis, lab results, the need for outpatient follow up, to return to the emergency department if symptoms worsen or persist or if there are any questions or concerns that arise at home. Special discussion: I discussed with the patient/guardian in detail that at this point there is no indication for admission to the hospital. It is understood, however, that if the symptoms persist or worsen the patient needs to return immediately for re-evaluation. 10/16 20:01 Order name: Flu; Complete Time: 20:59 rn 10/16 20:01 Order name: SARS-COV-2 Antigen Rapid; Complete Time: 20:59 rn Administered Medications: 21:21 Not Given (medication not available, switching to augmentinn): [id number] mg PO onceal5 21:21 Drug: Amoxicillin-Clavulanate PO 875 mg PO once Route: PO; al5 21:22 Follow up: Response: No adverse reaction; Medication administered at discharge. al5 Disposition Summary: 10/16/24 21:02 Discharge Ordered Notes: Location: Home rn Problem: new rn Symptoms: are unchanged rn Condition: Stable rn Diagnosis - Acute pharyngitis, unspecified rn - Acute upper respiratory infection, unspecified rn Followup: rn - With: Private Physician - When: As needed - Reason: Recheck today's complaints, Re-evaluation by your physician Discharge Instructions: - Discharge Summary Sheet rn - Pharyngitis rn - Upper Respiratory Infection, Adult rn Forms: - Medication Reconciliation Form rn - Antibiotic new grad rn - Prescription Opioid Use rn - Patient Portal Instructions rn - Leadership Thank You Letter rn Prescriptions: - Amoxicillin 875 mg Oral Tablet - take 1 tablet ORAL route every 12 hours for 10 days; 20 tablet; Refills: 0, rn Product Selection Permitted Signatures: Dispatcher [employer] Yared Suazo MD MD rn Langhorst, Amanda, RN RN al5
--- NOTE | 2024-10-16 21:03 | ER ---
Nurse's Notes [facility] Name: Chantelle Wells Age: 29 yrs Sex: Female : 1995 Arrival Date: 10/16/2024 Time: 19:33 Bed IW4 Private MD: Diagnosis: Acute pharyngitis, unspecified;Acute upper respiratory infection, unspecified Presentation: 10/16 20:10 Chief complaint: Patient states: c/o fever flu like symptoms since Sunday, is 17 al5 weeks . Coronavirus screen: chills, congestion, cough unrelated to allergies, headache, muscle pain, runny nose, sore throat. Ebola Screen: No symptoms or risks identified at this time. Resp Distress? No respiratory distress is noted at this time. Initial Sepsis Screen: Does the patient meet any 2 criteria? No. Patient's initial sepsis screen is negative. Does the patient have a suspected source of infection? No. Patient's initial sepsis screen is negative. Risk Assessment: Do you want to hurt yourself or someone else? Patient reports no desire to harm self or others. Onset of symptoms was October 11, 2024. 20:10 Method Of Arrival: Ambulatory al5 20:10 Acuity: DEMETRIO 3 al5 Triage Assessment: 20:12 General: Appears in no apparent distress. uncomfortable, Behavior is calm, cooperative. al5 Pain: Complains of pain in generalized. EENT: Reports nasal congestion. Neuro: Level of Consciousness is awake, alert, obeys commands, Oriented to person, place, time, situation. Cardiovascular: Patient's skin is warm and dry. Respiratory: Reports cough that is Airway is patent Respiratory effort is even, unlabored, Respiratory pattern is regular, symmetrical. Respiratory: Breath sounds are clear bilaterally. GI: No signs and/or symptoms were reported involving the gastrointestinal system. : No signs and/or symptoms were reported regarding the genitourinary system. Derm: Skin is intact, is healthy with good turgor, Skin is pink, warm \T\ dry. normal. Musculoskeletal: No signs and/or symptoms reported regarding the musculoskeletal system. 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 - Infectious Disease History:: Denies. - Social history:: Smoking status: Patient denies any tobacco usage or history of. - Family history:: not pertinent. - Hospitalizations: : No recent hospitalization is reported. Screenin:12 [facility] ED Fall Risk Assessment (Adult) History of falling in the last 3 months, al5 including since admission No falls in past 3 months (0 pts) Confusion or Disorientation No (0 pts) Intoxicated or Sedated No (0 pts) Impaired Gait No (0 pts) Mobility Assist Device Used No (0 pt) Altered Elimination No (0 pt) Score/Fall Risk Level 0 - 2 = Low Risk Oriented to surroundings, Maintained a safe environment, Hourly rounding (assess needs \T\ fall precautionary measures) done. Abuse screen: Denies threats or abuse. Denies injuries from another. Nutritional screening: No deficits noted. Tuberculosis screening: No symptoms or risk factors identified. Assessment: 21:11 Reassessment: see triage assessment. al5 Vital Signs: 20:10 BP 146 / 109; Pulse 87; Resp 18; Temp 98.1; Pulse Ox 100% on R/A; Weight 77.11 kg; al5 Height 5 ft. 0 in. ; Pain 7/10; 20:10 Body Mass Index 33.20 (77.11 kg, 152.4 cm) al5 20:10 Pain Scale: Adult al5 ED Course: 19:40 Patient arrived in ED. gm2 20:00 Yared Cho MD is Attending Physician. rn 20:11 Triage completed. al5 20:14 Arm band placed on right wrist. Patient placed in waiting room, in view of staff al5 members, Patient notified of wait time Patient patient swabbed for covid and flu at this time. 20:17 Flu Sent. al5 20:17 SARS-COV-2 Antigen Rapid Sent. al5 21:11 Jami Valdes, RN is Primary Nurse. al5 21:12 Patient has correct armband on for positive identification. Provided Education on: al5 discharge follow up, medications. 21:12 No provider procedures requiring assistance completed. Patient did not have IV access al5 during this emergency room visit. Administered Medications: 21:21 Not Given (medication not available, switching to augmentinn): [id number] mg PO onceal5 21:21 Drug: Amoxicillin-Clavulanate PO 875 mg PO once Route: PO; al5 21:22 Follow up: Response: No adverse reaction; Medication administered at discharge. al5 Medication: 21:11 VIS not applicable for this client. al5 Outcome: 21:02 Discharge ordered by . rn 21:22 Discharged to home ambulatory, al5 21:22 Condition: good 21:22 Discharge instructions given to patient, Instructed on discharge instructions, follow up and referral plans. medication usage, Demonstrated understanding of instructions, follow-up care, medications, Prescriptions given X 1, 21:23 Patient left the ED. al5 Signatures: Yared Cho MD MD rn Mitchell, [facility] Jami Valdes RN RN al5 Corrections: (The following items were deleted from the chart) 21:14 21:13 3, Full Term 1, Premature 1, 0, Living 2, LMP 08/05/2024, al5 Verified, EDC 05/12/2025, Gestational age from LMP: 10 weeks 3 days al5
[2024-10-16] MEDS ORDERED: AMOX/K CLAV 875 MG TAB ONE (21:20)
[2024-10-17 00:25] VITALS: BP 146/109; TEMP 98.1; O2SAT 100
== END 2024-10-16 21:23 | disposition home or self-care (01) ==
LOC: ER 19:33
DX: J06.9 Acute upper respiratory infection, unspecified (principal); Z11.52 Encounter for screening for COVID-19
CPT/HCPCS: 36415; 87804; 87811; 99283